=== PATIENT | female | born 1945 | race Caucasian/White ===

== ENCOUNTER 2017-04-21 10:36 | Inpatient (IN) ==
[2017-04-21 11:45] LABS: Basophils % 0.3 %; Eosinophils # 0.3 K/mcL (0.0-0.6); Eosinophils % 3.2 %; Hematocrit 36.9 % (35.3-44.9); Hemoglobin 11.8 g/dL (11.5-15.4); Immature Granulocytes % 0.2 % (0-4); Lymphocytes # 0.7 K/mcL (0.6-4.6); Lymphocytes % 7.8 %; Mean Corpuscular Hemoglobin 32.7 pg (28.0-33.3); Mean Corpuscular Volume 102.2 fL (83.0-100.0); Mean Platelet Volume 8.7 fL (9.4-12.4); Monocytes # 0.4 K/mcL (0.0-1.3); Monocytes % 4.8 %; Neutrophils # 7.4 K/mcL (1.6-8.9); Platelet Count 116 K/mcL (140-400); Red Blood Count 3.61 M/mcL (3.82-4.97); Red Cell Distribution Width 13.3 % (11.5-14.5); Segmented Neutrophils % 83.7 %
[2017-04-21] MEDS ORDERED: Ipratropium/Albuterol Neb 3 ML IH ONE (11:53)
[2017-04-21] MEDS ORDERED: methylPREDNISolone 125 MG/2 ML VIAL IVP ONE (11:55)
[2017-04-21 12:02] LABS: Calcium 9.7 mg/dL (8.6-10.8); Potassium 4.1 mEq/L (3.5-4.5)
[2017-04-21] MEDS ORDERED: Azithromycin 500 MG in D5% in Water 250 ML IVPB ONE (13:24)
--- NOTE | 2017-04-21 13:33 | Emergency Department Note ---
Disposition Clinical Impression: COPD exacerbation Pneumonia Qualifiers: Pneumonia type: due to unspecified organism Laterality: unspecified laterality Lung location: unspecified part of lung Qualified Code(s): J18.9 - Pneumonia, unspecified organism CHF (congestive heart failure) Qualifiers: Congestive heart failure type: systolic Congestive heart failure chronicity: acute Qualified Code(s): I50.21 - Acute systolic (congestive) heart failure Disposition: Admitted As Inpatient Condition: Good SOB HPI - General Chief Complaint: ED Shortness of Breath/Dyspnea Stated Complaint: SOB/weakness Time Seen by Provider: 04/21/17 11:03 Source: patient, family Limitations: no limitations Nursing Notes Reviewed: Yes Vital Signs Reviewed: Yes - History of Present Illness Patient here for evaluation of shortness of breath and fatigue. Patient's shortness of breath started yesterday. Not associated with fever. Patient has had a productive cough that has been white and yellow sputum. Patient has a history of COPD as well as CHF. No recent hospitalizations or hospital stays. Uses at home breathing treatments on a razor basis. Patient uses home oxygen at 2.5 L. Recent increase in overall use requiring approximately 4 L in the emergency department. No acute distress while resting in bed at 4 L. - Related Data Home Medications Medication Instructions Recorded Confirmed Atorvastatin Calcium [Lipitor] 20 mg PO HS 09/16/16 04/21/17 Febuxostat [Uloric] 80 mg PO DAILY 09/16/16 04/21/17 Furosemide [Lasix] 40 mg PO DAILY 09/16/16 04/21/17 Gabapentin [Neurontin] 300 mg PO TID 09/16/16 04/21/17 Multivitamin [One Daily Essential] 1 tab PO DAILY 09/16/16 04/21/17 Tramadol HCl [Ultram] 50 mg PO QID PRN 09/16/16 04/21/17 Valsartan [Diovan] 80 mg PO DAILY 09/16/16 04/21/17 amLODIPine [Norvasc] 10 mg PO DAILY 09/16/16 04/21/17 Aspirin [Lo-Dose Aspirin EC] 81 mg PO DAILY 01/22/17 04/21/17 Carvedilol 3.125 mg PO BID 01/22/17 04/21/17 Albuterol Sulfate [Ventolin Hfa] 2 puff IH Q4H PRN 04/21/17 04/21/17 Escitalopram [Lexapro] 10 mg PO DAILY 04/21/17 04/21/17 Allergies Allergy/AdvReac Type Severity Reaction Status Date / Time No Known Allergies Allergy Verified 01/22/17 07:52 Review of Systems: CONSTITUTIONAL: weakness and fatigue No weight loss, fever, chills. HEENT: Eyes: No visual changes. Ears, Nose, Throat: No hearing loss, difficulty talking or unable to swallow. SKIN: No rash or itching. CARDIOVASCULAR: No chest pain, chest pressure or chest discomfort. No palpitations or edema. RESPIRATORY: shortness of brerath and sputum production GASTROINTESTINAL: No anorexia, nausea, vomiting or diarrhea. No abdominal pain or blood. GENITOURINARY: No burning on urination or hematuria. NEUROLOGICAL: No headache, dizziness, syncope, paralysis, ataxia, numbness or tingling in the extremities. No change in bowel or bladder control. MUSCULOSKELETAL: No muscle pain, back pain, joint pain or stiffness. Past Medical History - Past Medical History Medical history: Reports: CHF, COPD, hypertension, RA, renal disease Surgical history: Reports: cholecystectomy, knee replacement, other Psychiatric history: Reports: no psych history - Social History Smoking Status: Never smoker Smokeless Tobacco Status: No Alcohol use: Reports: none Drug use: Reports: none Physical Exam General appearance: NAD, conversant Eyes: anicteric sclerae, moist conjunctivae; PERRL HENT: Atraumatic; oropharynx clear with moist mucous membranes and no mucosal ulcerations Neck: Normal inspection; Trachea midline; FROM, supple Lungs: Diffuse wheezing with rhonchi CV: RRR, no MRGs Abdomen: Soft, non-tender; no rebound or gaurding Extremities: No peripheral edema or extremity lymphadenopathy Skin: Normal temperature; no rash, ulcers or lesions Psych: Appropriate mood and affect Neuro: alert and oriented to person, place and time - General Limitations: no limitations General appearance: alert Course - Reevaluation(s) Reevaluation #1: Symptoms mildly improved with DuoNeb's and steroids. However she does appear to have a retrocardiac pneumonia. Patient's oxygen down turned out to her home to half liters and her oxygen dropped to 87% while rest. Patient will be brought in for COPD exacerbation, pneumonia, CHF. - Consultations Consultation #1: Discussed with Hospitalist Dr. Vick. Pt accepted. Vital Signs Temperature 98.1 F 04/21/17 10:36 Pulse Rate 86 04/21/17 10:36 Respiratory Rate 20 04/21/17 10:36 Blood Pressure 145/57 04/21/17 10:36 O2 Sat by Pulse Oximetry 85 04/21/17 10:36 Temperature 98.1 F 04/21/17 10:36 Pulse Rate 78 04/21/17 12:56 Respiratory Rate 18 04/21/17 15:19 Blood Pressure 174/70 04/21/17 15:19 O2 Sat by Pulse Oximetry 96 04/21/17 12:56 Oxygen Delivery Oxygen Delivery Room Air,Nasal Cannula Shortness of Breath/Dyspnea - Medical Records Medical records reviewed: Yes I reviewed the patient's medical records. - Lab Data Lab results reviewed: Yes I reviewed the patient's lab results. Result diagrams: 04/21/17 11:33 04/21/17 11:33 Lab Results 04/21/17 04/21/17 04/21/17 Range/Units 11:33 11:33 11:33 WBC 8.8 (4.3-11.1) K/mcL RBC 3.61 L (3.82-4.97) M/mcL Hgb 11.8 (11.5-15.4) g/dL Hct 36.9 (35.3-44.9) % MCV 102.2 H (83.0-100.0) fL MCH 32.7 (28.0-33.3) pg MCHC 32.0 (31.6-35.5) g/dL RDW 13.3 (11.5-14.5) % Plt Count 116 L (140-400) K/mcL MPV 8.7 L (9.4-12.4) fL Immature Gran % 0.2 (0-4) % Seg Neutrophils % 83.7 % Lymphocytes % 7.8 % Monocytes % 4.8 % Eosinophils % 3.2 % Basophils % 0.3 % Neutrophils # 7.4 (1.6-8.9) K/mcL Lymphocytes # 0.7 (0.6-4.6) K/mcL Monocytes # 0.4 (0.0-1.3) K/mcL Eosinophils # 0.3 (0.0-0.6) K/mcL Basophils # 0.0 (0.0-0.2) K/mcL Sodium 143 (136-145) mEq/L Potassium 4.1 (3.5-4.5) mEq/L Chloride 97 L (98-109) mEq/L Carbon Dioxide 37 H (19-29) mEq/L BUN 26 H (7-20) mg/dL Creatinine 1.50 H (0.57-1.11) mg/dL Est GFR ( Amer) 42 L (> 60) Est GFR (Non-Af Amer) 34 L (> 60) BUN/Creatinine Ratio 17 (6-26) Glucose 113 H (70-99) mg/dL Calculated Osmolality 302 H (280-300) Calcium 9.7 (8.6-10.8) mg/dL Troponin I 0.01 (0-0.03) ng/mL B-Natriuretic Peptide (0-100) pg/mL 04/21/17 Range/Units 11:33 WBC (4.3-11.1) K/mcL RBC (3.82-4.97) M/mcL Hgb (11.5-15.4) g/dL Hct (35.3-44.9) % MCV (83.0-100.0) fL MCH (28.0-33.3) pg MCHC (31.6-35.5) g/dL RDW (11.5-14.5) % Plt Count (140-400) K/mcL MPV (9.4-12.4) fL Immature Gran % (0-4) % Seg Neutrophils % % Lymphocytes % % Monocytes % % Eosinophils % % Basophils % % Neutrophils # (1.6-8.9) K/mcL Lymphocytes # (0.6-4.6) K/mcL Monocytes # (0.0-1.3) K/mcL Eosinophils # (0.0-0.6) K/mcL Basophils # (0.0-0.2) K/mcL Sodium (136-145) mEq/L Potassium (3.5-4.5) mEq/L Chloride (98-109) mEq/L Carbon Dioxide (19-29) mEq/L BUN (7-20) mg/dL Creatinine (0.57-1.11) mg/dL Est GFR ( Amer) (> 60) Est GFR (Non-Af Amer) (> 60) BUN/Creatinine Ratio (6-26) Glucose (70-99) mg/dL Calculated Osmolality (280-300) Calcium (8.6-10.8) mg/dL Troponin I (0-0.03) ng/mL B-Natriuretic Peptide 53 (0-100) pg/mL - Radiology Data Radiology results reviewed: Yes I reviewed the patient's radiology results. - EKG Data EKG attestation: Yes I reviewed and interpreted this EKG. EKG results narrative: ST segment flattening and inversions in 3 and 4. Otherwise normal to 08/2616 EKG shows normal: Reports: sinus rhythm, axis, intervals Critical Care Time Critical Care Time: Yes Total Critical Care Time: 35 Attestation: The high probability of a clinically significant, sudden or life threatening deterioration of the [resp/CV] system(s) required my full and direct attention, intervention and personal management. The aggregate critical care time was [35] minutes. This time is in addition to time spent performing reported procedures but includes the following: [X] Data Review and interpretation [X] Patient assessment and monitoring of vital signs [X] Documentation [X] Medication orders and management Attestation Statement - Attestation Attestation: I personally interviewed and examined this patient and my medical decision- making was reviewed with the Resident Physician, Dr. Olivo I agree with the documented findings, disposition and treatment plan as described except to the extent set forth below. Patient is a 71-year-old white female with a history of COPD, CHF, who presents to the emergency department today with respiratory distress and hypoxia complaining of gradually worsening shortness of breath. Patient was hypoxic on room air on arrival, normally on 2 L nasal cannula oxygen at home and was increased to 4 L with mild improvement of symptoms as well as pulse oxing 94%. Patient was having wheezing on auscultation with tachypnea and also rhonchorous breath sounds throughout. Patient denies any actual chest pain, was complaining of some mild midthoracic back pain but otherwise no other associated symptoms, no diaphoresis, no fevers or chills, no nausea vomiting and an occasional nonproductive cough. I agree with patient's physical exam findings as documented. Patient received increased abdominal oxygen, was placed on a ekg monitor and continuous pulse ox and received aerosols on arrival. Patient's EKG showed no acute findings and no ischemic change. Patient with improved symptoms following aerosols. Chest x-ray showed mild pulmonary edema consistent with CHF exacerbation. Two-view chest also showed an infiltrate in the retrocardiac space consistent with pneumonia. Patient was started on IV antibiotics, continued breathing treatments and was hemodynamically stable throughout her ED course. Patient will be admitted for respiratory distress caused by acute exacerbation COPD, pneumonia, and mild CHF exacerbation. Case was discussed with the hospitalist who accepted the patient for admission for further evaluation and management.
[2017-04-21] MEDS ORDERED: Furosemide 20 MG/2 ML VIAL IVP ONE (14:28)
[2017-04-21] MEDS ORDERED: Acetaminophen 325 MG TABLET PO PRN (17:19)
[2017-04-21] MEDS ORDERED: Naloxone 0.4 MG/ML INJ IVP PRN (17:19)
--- NOTE | 2017-04-21 17:19 | Internal Med History&Physical ---
Date of Encounter: 04/21/17 Time of Encounter: 17:19 Assessment and Plan (1) COPD exacerbation Current visit: Yes Status: Acute Possible infective exacerbation of COPD: -Known to have a COPD, home oxygen 2 L/m. -Worsening shortness of breath along with increasing oxygen demand: Maintenance of around 90-92% on 4 L. -Change in color of sputum. -X-ray just suggestive of possibility of a pneumonia. Plan: -IV levofloxacin 500 mg every 48 hours (creatinine 1.5) -IV Solu-Medrol 40 mg every 8 hours - IH DuoNeb every 4 hours (2) CHF exacerbation Current visit: No Status: Acute Worsening shortness of breath. Echocardiogram: 08/2016: EF: 65-70%, moderate aortic stenosis Presently on ASA/BB/amlodipine/ARB Plan: Will continue present treatment. We will increase Lasix from 40 mg by mouth to intravenous 40 mg twice a day. We will get labs tomorrow morning. I have consulted nephrology to keep eye on her creatinine as this patient will need aggressive dialysis. Patient has bicarbonate of 37 and she is already heading towards contraction alkalosis Qualifiers: Congestive heart failure type: diastolic Qualified Code(s): I50.33 - Acute on chronic diastolic (congestive) heart failure (3) Hypertension Current visit: No Status: Chronic Mildly elevated blood pressure likely secondary to stress/pain. Patient cannot have her tramadol in view of altered renal function. Patient is on Solu-Medrol and that will take care of her pain from rheumatoid arthritis Explained him over to the patient and she verbalized understanding Nephrology consulted Qualifiers: Hypertension type: essential hypertension Qualified Code(s): I10 - Essential (primary) hypertension (4) MIGDALIA (obstructive sleep apnea) Current visit: No Status: Chronic Need outpatient evaluation of a sleep study (5) DVT prophylaxis Current visit: No Status: Acute Heparin Medical decision-making: This patient has a moderate to severe risk of worsening in spite of being on appropriate treatment due to underlying multiple complex medical issues Internal Medicine - H&P: HPI Chief complaint: Worsening SOB Admitted From: Emergency Dept Plans for Post Hospital Care: Home History of present illness: PCP : Dr Nguyễn Cardiology : Dr London Nephrology : Dr Cadena Pulmonology : From [facility] Rheumatology : [facility]. Brief PMH : HTN, RA, CKD III, COPD On 2 L INO2, Diastolic Heart failure (HFpEF) , HPI: Patient is complaining of worsening shortness of breath for past 3 days but gradually and consistently worsening in last 24 hours. Patient claims that on a minimal activity she gets exerted and even to walk a few steps it is extremely difficult for her. Patient usually uses 2 L of oxygen at home and her demand for oxygen has gone up to 4.5 L and in spite of that she feels short of breath. Patient also claims that her sputum is yellowish white in color and this is a new change which she noted in last 24 hours. Patient denies chest pain, abdominal pain, nausea, vomiting, diarrhea and dizziness. Course in the emergency department: Patient was evaluated in the emergency department as she was brought in for worsening shortness of breath. Basic labs were drawn. X-ray chest was done and that is suggestive of possibility of a pneumonia. Antibiotics were given. We do not see any blood cultures ordered or drawn. Reason for admission: Possible COPD exacerbation, however CHF exacerbation is also possible as this could be a exacerbation of her diastolic heart failure. Patient needs intravenous antibiotics, diuretics and intensive monitoring of her respiratory/cardiac status and this is that his reason patient needs to be in the hospital for next 2-3 days. Family history: Noncontributory Past Med Surg Social Fam HX - Past Medical History Medical history: CHF, COPD, hypertension, RA, renal disease Psychiatric history: no psych history - Past Surgical History Surgical History: cholecystectomy, knee replacement, other - Social History Smoking Status: Never smoker Smokeless Tobacco Status: No Alcohol use: none Drug use: none Internal Medicine - H&P: Meds Atorvastatin Calcium [Lipitor] 20 mg PO HS 09/16/16 [History] Febuxostat [Uloric] 80 mg PO DAILY 09/16/16 [History] Furosemide [Lasix] 40 mg PO DAILY 09/16/16 [History] Gabapentin [Neurontin] 300 mg PO TID 09/16/16 [History] Multivitamin [One Daily Essential] 1 tab PO DAILY 09/16/16 [History] Tramadol HCl [Ultram] 50 mg PO QID PRN 09/16/16 [History] Valsartan [Diovan] 80 mg PO DAILY 09/16/16 [History] amLODIPine [Norvasc] 10 mg PO DAILY 09/16/16 [History] Aspirin [Lo-Dose Aspirin EC] 81 mg PO DAILY 05/03/17 [History] Carvedilol 3.125 mg PO BID 01/22/17 [History] Albuterol Sulfate [Ventolin Hfa] 2 puff IH Q4H PRN 04/21/17 [History] Escitalopram [Lexapro] 10 mg PO DAILY 04/21/17 [History] Allergies No Known Allergies Allergy (Verified 01/22/17 07:52) All Systems PM: A 10-system review of systems was performed and is negative for pertinent findings except as documented above in the HPI. - Constitutional Constitutional: no chills, no fever(s), no night sweats - EENT Eyes: no change in vision, no discharge, no pain, no photophobia Ears: no ear discharge, no ear pain, no tinnitus Nose, mouth and throat: no dysphagia, no nasal discharge, no neck pain, no sore throat - Cardiovascular Cardiovascular ROS IM: dyspnea, lightheadedness, no chest pain, no diaphoresis, no palpitations, no syncope - Respiratory Respiratory: cough, dyspnea, excessive phlegm production, change in phlegm color , no wheezing - Gastrointestinal Gastrointestinal: no abdominal pain, no diarrhea, no hematemesis, no hematochezia, no melena, no nausea, no vomiting - Genitourinary Genitourinary: no change in urinary stream, no dysuria, no flank pain, no hematuria - Musculoskeletal Musculoskeletal ROS IM: no numbness, no tingling - Integumentary Integumentary IM: no rash, no unusual bruising - Neurological Neurological ROS: no confusion, no convulsions, no focal weakness, no numbness, no tingling, no tremor(s) - Hematologic/Lymphatic Hematologic/Lymphatic: no easy bruising - Constitutional Vitals: Temp Pulse Resp BP Pulse Ox 98.4 F 87 18 166/70 90 04/21/17 16:15 04/21/17 16:15 04/21/17 16:15 04/21/17 16:15 04/21/17 16:15 General appearance: Present: A&O X 3, morbidly obese, pleasant, answers questions appropriately - Head Head exam: Present: atraumatic, normocephalic - Eye Eye exam: Present: PERRL, conjuntiva pink, sclera anicteric Pupils: Present: PERRL - Neck Neck exam general surgery: Present: supple, trachea midline. Absent: lymphadenopathy - Respiratory Respiratory exam: Present: CTAB, rales, rhonchi, wheezes. Absent: accessory muscle use - Cardiovascular Cardiovascular exam: Present: RRR, +S1, +S2. Absent: diastolic murmur, gallop, rubs, systolic murmur - GI/Abdominal GI/Abdominal exam: Present: normal bowel sounds, soft, no peritoneal signs. Absent: distended, tenderness - Extremities Exam Extremities exam: Present: warm, radial pulses palpable and symetrical. Absent : calf tenderness, cyanotic, pedal edema - Neurological Exam Neurological exam: Present: CN II-XII intact, oriented X3, no focal deficits. Absent: pronater drift, facial droop, speech deficit - Skin Skin exam: Present: dry, intact Internal Med - H&P Results - Labs CBC & Chem 7: 04/21/17 11:33 04/21/17 11:33
[2017-04-21] MEDS ORDERED: Ipratropium/Albuterol Neb 3 ML IH PRN (17:31)
--- NOTE | 2017-04-21 17:59 | Electrocardiograph Report ---
[address] [address] Test Date: 2017-04-21 Pat Name: Melly Stinson Department: 104 Room: 2A63 Gender: F Heliarc Welder: CLEMENTINA : 1945 Requested By: Cristobal Olivo Order Number: [id number] Reading MD: Blanca Griffin Measurements Intervals [place] Rate: 77 P: 55 TN: 148 QRS: 29 QRSD: 97 T: 30 QT: 392 QTc: 424 Interpretive Statements SINUS RHYTHM Electronically Signed On 04-21-2017 17:57:51 EDT by Blanca Griffin
[2017-04-21] MEDS ORDERED: Levofloxacin 500 MG/100 ML 500 MG/100 ML BAG IVPB SCH (18:00)
[2017-04-21] MEDS: Furosemide 40 MG/4 ML VIAL IVP SCH (18:07)
[2017-04-21] MEDS: *HR* Heparin 5,000 UNIT/ML VIAL SQ SCH (18:10)
[2017-04-21] MEDS: Gabapentin 300 MG CAPSULE PO SCH (20:10)
[2017-04-21] MEDS: MethylPREDNISolone 40 MG/ML VIAL IVP SCH ×2 (23:15→23:55)
[2017-04-22 01:27] LABS: Albumin 3.7 g/dL (3.5-5.0); Albumin/Globulin Ratio 1.3 (1.1-2.2); Bilirubin,Total 0.7 mg/dL (0.2-1.2); Calcium 9.6 mg/dL (8.6-10.8); Chol/HDL Ratio 2.6 (0-4.9); Globulin 2.9 g/dL (2.4-3.5); Magnesium 1.8 mg/dL (1.6-2.6); Phosphorous 1.8 mg/dL (2.3-4.7); Potassium 4.5 mEq/L (3.5-4.5); Total Protein 6.6 g/dL (6.0-8.3)
[2017-04-22] MEDS: *HR* Heparin 5,000 UNIT/ML VIAL SQ SCH ×2 (05:44→18:34)
[2017-04-22 07:56] LABS: Basophils % 0.1 %; Hematocrit 38.9 % (35.3-44.9); Hemoglobin 12.6 g/dL (11.5-15.4); Immature Granulocytes % 0.3 % (0-4); Immature Platelets 1.6 % (1.1-6.1); Lymphocytes # 0.6 K/mcL (0.6-4.6); Lymphocytes % 4.3 %; Mean Corpuscular HGB Conc 32.4 g/dL (31.6-35.5); Mean Corpuscular Hemoglobin 32.8 pg (28.0-33.3); Mean Corpuscular Volume 101.3 fL (83.0-100.0); Mean Platelet Volume 9.3 fL (9.4-12.4); Monocytes # 0.1 K/mcL (0.0-1.3); Monocytes % 0.8 %; Neutrophils # 12.4 K/mcL (1.6-8.9); Platelet Count 157 K/mcL (140-400); Red Blood Count 3.84 M/mcL (3.82-4.97); Red Cell Distribution Width 13.4 % (11.5-14.5); Segmented Neutrophils % 94.5 %
--- NOTE | 2017-04-22 08:10 | Nephrology Consult Note ---
Date of Encounter: 04/22/17 Time of Encounter: 08:08 Assessment and Plan (1) Chronic kidney disease, stage III (moderate) Current Visit: Yes Status: Acute Patient has stage III chronic kidney disease in the setting of hypertension. She does not report a history of diabetes. Currently her renal function is stable. She is being treated for exacerbation of COPD and also for acute on chronic diastolic congestive heart failure. Patient is currently receiving Lasix 40 mg IV twice a day. We will continue to monitor her renal function. If her renal function worsens or Lasix will have to be reduced. Patient does report a history of chronic lower extremity swelling. Part of this could be related to the fact that she takes both amlodipine and gabapentin which can cause chronic lower extremity swelling. Clinically the patient's main issue appears to be exacerbation of COPD. (2) Benign hypertension with chronic kidney disease, stage III Current Visit: Yes Status: Acute (3) MIGDALIA (obstructive sleep apnea) Current Visit: No Status: Chronic (4) COPD exacerbation Current Visit: Yes Status: Acute (5) Diastolic CHF, acute on chronic Current Visit: Yes Status: Acute History of Present Illness - History of Present Illness This is a 71-year-old female with a history of stage III chronic kidney disease in the setting of hypertension. Baseline serum creatinine ranges from 1.5-2.6. Patient was admitted to the hospital for 1 week history of worsening shortness of breath along with cough and sputum production. She has a history of COPD, sleep apnea, and congestive heart failure. Previous echocardiogram showing a normal left ventricular ejection fraction. It is also showed mild to moderate pulmonary hypertension and mild to moderate aortic stenosis. Patient has been treated for exacerbation of COPD and also has had her diuretic dose increased. Today she reports that she is feeling better. She reports less shortness of breath. She is no longer wheezing. She does have chronic lower extremity swelling. She says her swelling today is improved compared to yesterday. Her serum creatinine has gone from 1.50 yesterday to 1.69 today. Past Med Surg Social Fam HX - Past Medical History Medical history: CHF, COPD, hypertension, RA, renal disease Psychiatric history: anxiety - Past Surgical History Surgical History: cholecystectomy, knee replacement, other - Social History Smoking Status: Never smoker Smokeless Tobacco Status: No Alcohol use: none Drug use: none - Family History Son Hx Family Autoimmune Disorders: Yes (rheumatoid arthritis) Medications and Allergies Atorvastatin Calcium [Lipitor] 20 mg PO HS 09/16/16 [History] Febuxostat [Uloric] 80 mg PO DAILY 09/16/16 [History] Furosemide [Lasix] 40 mg PO DAILY 09/16/16 [History] Gabapentin [Neurontin] 300 mg PO TID 09/16/16 [History] Multivitamin [One Daily Essential] 1 tab PO DAILY 09/16/16 [History] Tramadol HCl [Ultram] 50 mg PO QID PRN 09/16/16 [History] Valsartan [Diovan] 80 mg PO DAILY 09/16/16 [History] amLODIPine [Norvasc] 10 mg PO DAILY 09/16/16 [History] Aspirin [Lo-Dose Aspirin EC] 81 mg PO DAILY 01/22/17 [History] Carvedilol 3.125 mg PO BID 01/22/17 [History] Albuterol Sulfate [Ventolin Hfa] 2 puff IH Q4H PRN 04/21/17 [History] Escitalopram [Lexapro] 10 mg PO DAILY 04/21/17 [History] Allergies No Known Allergies Allergy (Verified 01/22/17 07:52) Review of Systems Constitutional: as per HPI, weakness Eyes: bilateral: blurred vision (patient denies), diplopia (patient denies) Nose, mouth and throat: no dizziness, no headache(s) Cardiovascular: dyspnea, dyspnea on exertion, edema, no chest pain, no palpitations Respiratory: as per HPI, cough, dyspnea, dyspnea on exertion Gastrointestinal: no abdominal pain, no change in bowel habits Musculoskeletal: no muscle weakness, no numbness Integumentary: no hirsutism, no striae Neurological: as per HPI Psychiatric: no depression, no difficulty concentrating Endocrine: as per HPI Exam - Vital Signs Vital signs: Initial Vital Signs Temp Pulse Resp BP Pulse Ox 98.1 F 86 20 145/57 85 04/21/17 10:36 04/21/17 10:36 04/21/17 10:36 04/21/17 10:36 04/21/17 10:36 Vital Signs - Last 8 Hours Temp Pulse Resp BP Pulse Ox 04/22/17 06:47 97.4 F L 90 16 151/72 94 04/22/17 03:37 98.0 F 86 16 171/80 92 Intake and Output 04/21/17 04/22/17 04/22/17 23:59 07:59 15:59 Intake Total 250 / 250 Output Total 300 / 300 1200 / 1200 Balance -50 / -50 -1200 / -1200 Intake: IV Fluids 250 / 250 Zithromax 500 mg In 250 / 250 Dextrose 5% 250 ML @ 252 mls/hr IVPB ONCE ONE Rx#: [id number] Oral 0 / 0 Output: Urine 300 / 300 1200 / 1200 Other: Weight 164.3 kg Blood Glucose* 245 188 Patient Weight 04/22/17 23:59 Weight 164.3 kg - General Appearance Exam: Patient is alert and oriented. She is in no acute distress. Vital signs are stable. Neck is supple. Lungs diminished breath sounds with coarse rales in the bases. There is no wheezing nor rhonchi. Heart regular rate and rhythm with a 2/6 systolic ejection murmur. Abdomen is obese. Bowel sounds are present. No tenderness or organomegaly guarding or rigidity noted. There is some nonpitting lower extremity edema. There are no abnormal skin rashes. Results - Lab Results 04/22/17 06:57 04/22/17 00:34 Most recent lab results Calcium 9.6 mg/dL (8.6-10.8) 04/22/17 00:34 Phosphorus 1.8 mg/dL (2.3-4.7) L 04/22/17 00:34 Magnesium 1.8 mg/dL (1.6-2.6) 04/22/17 00:34 Consult Discharge Plan - Plan Referrals: Grady Nguyễn Jr, MD [Primary Care Provider] -
--- NOTE | 2017-04-22 08:58 | Internal Med Progress Note ---
<Williams Farias - Last Filed: 04/22/17 19:20> Date of Encounter: 04/22/17 Time of Encounter: 08:58 - Assessment and plan (1) COPD exacerbation Current Visit: Yes Status: Acute Assessment and plan: -patient's breathing markedly improved today. -possible infective exacerbation of COPD -Known to have a COPD, home oxygen 2 L/m. -Worsening shortness of breath along with increasing oxygen demand: Maintenance of around 90-92% on 4 L. -Change in color of sputum. -X-ray just suggestive of possibility of a pneumonia. -continue IV levofloxacin 500 mg every 48 hours (creatinine 1.69) -stopped IV Solu-Medrol 40 mg every 8 hours because patient's breathing and lungs sound improved -continue IH DuoNeb every 4 hours (2) CHF exacerbation Current Visit: No Status: Acute Assessment and plan: -patient's SOB has improved -Presently on ASA/BB/amlodipine/ARB -continue present treatment. -continue Lasix 40 mg IV BID -nephrology consulted -Nephrology plans to just monitor. -Echocardiogram: 08/2016: EF: 65-70%, moderate aortic stenosis -Patient reports poor compliance with diet and sodium intake. Qualifiers: Congestive heart failure type: diastolic Qualified Code(s): I50.33 - Acute on chronic diastolic (congestive) heart failure (3) Hypertension Current Visit: No Status: Chronic Assessment and plan: -Mildly elevated blood pressure likely secondary to stress/pain. -continue patient's Norvasc, diovan -Hold pt's tramadol in view of altered renal function. -Patient is on Solu-Medrol and that will take care of her pain from rheumatoid arthritis Qualifiers: Hypertension type: essential hypertension Qualified Code(s): I10 - Essential (primary) hypertension (4) Chronic kidney disease, stage III (moderate) Current Visit: Yes Status: Chronic Assessment and plan: -Patient has stage III chronic kidney disease in the setting of hypertension. -Currently her renal function is stable. - nephro consulted and agrees with plan of Lasix 40 mg IV BID. -continue to monitor renal function. If her renal function worsens will reduce lasix. (5) MIGDALIA (obstructive sleep apnea) Current Visit: No Status: Chronic Assessment and plan: -Will be evaluated as an outpatient (6) DVT prophylaxis Current Visit: No Status: Acute Assessment and plan: Continue heparin - Subjective Interval history: Patient reports feeling much better today. She reports her breathing is greatly improved. Her swelling in her lower extremities is also improved. She denies chest pain, abdominal pain, vomiting, or diarrhea. - Constitutional Vitals: Temp Pulse Resp BP Pulse Ox 97.4 F L 90 16 151/72 94 04/22/17 06:47 04/22/17 06:47 04/22/17 06:47 04/22/17 06:47 04/22/17 06:47 General appearance: Present: A&O X 3, morbidly obese, pleasant, answers questions appropriately - Eye Eye exam: Present: PERRL - ENT ENT exam: Present: mucous membranes moist - Respiratory Respiratory exam: Present: CTAB - Cardiovascular Cardiovascular exam: Present: RRR, +S1, +S2 - GI/Abdominal GI/Abdominal exam: Present: normal bowel sounds, soft. Absent: tenderness - Extremities Exam Extremities exam: Present: pedal edema - Neurological Exam Neurological exam: Present: alert. Absent: facial droop, speech deficit - Skin Skin exam: Present: warm Internal Medicine: Result - Labs CBC & Chem 7: 04/22/17 06:57 04/22/17 00:34 Labs: Short CBC 04/22/17 Range/Units 06:57 WBC 13.1 H (4.3-11.1) K/mcL Hgb 12.6 (11.5-15.4) g/dL Hct 38.9 (35.3-44.9) % Plt Count 157 (140-400) K/mcL Neutrophils # 12.4 H (1.6-8.9) K/mcL BMP 04/22/17 00:34 Sodium 144 Potassium 4.5 Chloride 98 Carbon Dioxide 39 H BUN 33 H Creatinine 1.69 H Glucose 165 H Calcium 9.6 Cardiac Enzymes 04/21/17 04/22/17 04/22/17 Range/Units 17:47 00:34 05:38 Troponin I 0.01 0.00 0.01 (0-0.03) ng/mL Liver Function 04/22/17 Range/Units 00:34 Total Bilirubin 0.7 (0.2-1.2) mg/dL AST 19 (5-34) Units/L ALT 14 (0-55) Units/L Alkaline Phosphatase 74 (38-126) Units/L Albumin 3.7 (3.5-5.0) g/dL Consult Discharge Plan - Plan Referrals: Grady Nguyễn Jr, MD [Primary Care Provider] - <Wilton Lewis - Last Filed: 04/22/17 23:12> Date of Encounter: 04/22/17 - Constitutional Vitals: Temp Pulse Resp BP Pulse Ox 98.9 F 84 16 163/67 95 04/22/17 19:23 04/22/17 19:23 04/22/17 19:23 04/22/17 19:23 04/22/17 19:23 Internal Medicine: Result - Labs CBC & Chem 7: 04/22/17 06:57 04/22/17 00:34 Labs: Short CBC 04/22/17 Range/Units 06:57 WBC 13.1 H (4.3-11.1) K/mcL Hgb 12.6 (11.5-15.4) g/dL Hct 38.9 (35.3-44.9) % Plt Count 157 (140-400) K/mcL Neutrophils # 12.4 H (1.6-8.9) K/mcL BMP 04/22/17 00:34 Sodium 144 Potassium 4.5 Chloride 98 Carbon Dioxide 39 H BUN 33 H Creatinine 1.69 H Glucose 165 H Calcium 9.6 Cardiac Enzymes 04/22/17 04/22/17 Range/Units 00:34 05:38 Troponin I 0.00 0.01 (0-0.03) ng/mL Liver Function 04/22/17 Range/Units 00:34 Total Bilirubin 0.7 (0.2-1.2) mg/dL AST 19 (5-34) Units/L ALT 14 (0-55) Units/L Alkaline Phosphatase 74 (38-126) Units/L Albumin 3.7 (3.5-5.0) g/dL - Attending Attestation I also examined the Patient today.. she has had rapid improvement. Normal BNP supports COPD, the quick improvement supports pulm. edema. Her CXR is unchanged. Will hope to DC tomorrow.. hold the steroid, modify the diuretic, and decrease the Amlodopine which is cont. to the fluid retension.
[2017-04-22] MEDS ORDERED: Valsartan 80 MG TABLET PO SCH (09:00)
[2017-04-22] MEDS: amLODIPine 5 MG TABLET PO SCH (10:38)
[2017-04-22] MEDS: Gabapentin 300 MG CAPSULE PO SCH ×3 (10:38→20:01)
[2017-04-22] MEDS: Aspirin Enteric Coated 81 MG Tablet PO SCH (10:40)
[2017-04-22] MEDS: Multivit/Ca/Min/Fe/FA 1 TAB TABLET PO SCH (10:40)
[2017-04-22] MEDS: Furosemide 40 MG/4 ML VIAL IVP SCH ×2 (10:41→16:55)
[2017-04-22] MEDS: MethylPREDNISolone 40 MG/ML VIAL IVP SCH ×2 (10:41→16:55)
[2017-04-22] MEDS: (Febuxostat [Uloric] 80 MG) PO SCH (11:38)
[2017-04-23 05:23] LABS: Albumin 3.9 g/dL (3.5-5.0); Albumin/Globulin Ratio 1.1 (1.1-2.2); Bilirubin,Total 0.7 mg/dL (0.2-1.2); Globulin 3.4 g/dL (2.4-3.5); Potassium 4.8 mEq/L (3.5-4.5); Total Protein 7.3 g/dL (6.0-8.3)
[2017-04-23] MEDS: *HR* Heparin 5,000 UNIT/ML VIAL SQ SCH (06:11)
--- NOTE | 2017-04-23 08:19 | Nephrology Progress Note ---
Date of Encounter: 04/23/17 Time of Encounter: 08:18 - Assessment and Plan (1) Chronic kidney disease, stage III (moderate) Current Visit: Yes Status: Chronic Patient's renal function is stable. Blood pressure is suboptimal. Her COPD exacerbation has improved. We can switch her back to oral Lasix. I am going to increase the valsartan for better blood pressure control. (2) Benign hypertension with chronic kidney disease, stage III Current Visit: Yes Status: Acute (3) MIGDALIA (obstructive sleep apnea) Current Visit: No Status: Chronic (4) COPD exacerbation Current Visit: Yes Status: Acute (5) Diastolic CHF, acute on chronic Current Visit: Yes Status: Acute Subjective Interval history: The patient reports her breathing is back to baseline. She feels better compared to when she was first admitted. Blood pressure is 153/73. Urine output yesterday was over 3 L. Renal function is stable. Objective - Vital Signs Vital signs: Vital Signs Temp Pulse Resp BP Pulse Ox 04/23/17 07:51 98.5 F 81 16 159/78 92 04/23/17 04:00 97.8 F 82 18 153/73 95 04/22/17 23:00 98.1 F 82 18 155/73 96 04/22/17 19:23 98.9 F 84 16 163/67 95 04/22/17 16:59 98.8 F 87 20 148/75 95 04/22/17 11:50 98.5 F 84 20 138/68 92 Intake and Output 04/22/17 04/23/17 04/23/17 23:59 07:59 15:59 Intake Total 120 / 120 Output Total 1200 / 1200 650 / 650 Balance -1080 / -1080 -650 / -650 Intake: Oral 120 / 120 Output: Urine 1200 / 1200 650 / 650 Other: Meal Dinner Percent of Meal Consumed 100% Blood Glucose* 197 137 - General Appearance Exam: Patient is alert and oriented. She is in no acute distress. Lungs diminished breath sounds. Some faint rales in the bases. Heart regular rate and rhythm. Abdomen is benign. There is mild nonpitting edema in the lower extremities. - Lab 04/22/17 06:57 04/23/17 04:46 Most recent lab results Calcium 10.0 mg/dL (8.6-10.8) 04/23/17 04:46 Phosphorus 1.8 mg/dL (2.3-4.7) L 04/22/17 00:34 Magnesium 1.8 mg/dL (1.6-2.6) 04/22/17 00:34 Consult Discharge Plan - Plan Referrals: Grady Nguyễn Jr, MD [Primary Care Provider] -
[2017-04-23] MEDS ORDERED: Furosemide 40 MG TABLET PO SCH (09:00)
[2017-04-23] MEDS ORDERED: Valsartan 80 MG TABLET PO SCH (09:00)
[2017-04-23] MEDS: amLODIPine 5 MG TABLET PO SCH (10:15)
[2017-04-23] MEDS: Multivit/Ca/Min/Fe/FA 1 TAB TABLET PO SCH (10:15)
[2017-04-23] MEDS: Aspirin Enteric Coated 81 MG Tablet PO SCH (10:15)
[2017-04-23] MEDS: Gabapentin 300 MG CAPSULE PO SCH ×2 (10:15→15:23)
--- NOTE | 2017-04-23 10:15 | Discharge Summary ---
<Williams Farias - Last Filed: 04/23/17 16:23> Date of Encounter: 04/23/17 Time of Encounter: 10:12 - Discharge Diagnosis (1) COPD exacerbation Priority: Primary Status: Acute (2) CHF exacerbation Priority: Secondary Status: Acute Qualifiers: Congestive heart failure type: diastolic Qualified Code(s): I50.33 - Acute on chronic diastolic (congestive) heart failure (3) Hypertension Priority: Secondary Status: Chronic Qualifiers: Hypertension type: essential hypertension Qualified Code(s): I10 - Essential (primary) hypertension (4) Chronic kidney disease, stage III (moderate) Priority: Secondary Status: Chronic (5) MIGDALIA (obstructive sleep apnea) Priority: Secondary Status: Chronic - Discharge Medications Prescriptions: amLODIPine [Norvasc] 5 mg PO DAILY #30 tab Furosemide [Lasix] 40 mg PO BID #60 tablet Levofloxacin [Levaquin] 500 mg PO Q48H #2 tablet Home Medications: Atorvastatin Calcium [Lipitor] 20 mg PO HS 09/16/16 [History] Febuxostat [Uloric] 80 mg PO DAILY 09/16/16 [History] Gabapentin [Neurontin] 300 mg PO TID 09/16/16 [History] Multivitamin [One Daily Essential] 1 tab PO DAILY 09/16/16 [History] Tramadol HCl [Ultram] 50 mg PO QID PRN 09/16/16 [History] Aspirin [Lo-Dose Aspirin EC] 81 mg PO DAILY 01/22/17 [History] Carvedilol 3.125 mg PO BID 01/22/17 [History] Albuterol Sulfate [Ventolin Hfa] 2 puff IH Q4H PRN 04/21/17 [History] Escitalopram [Lexapro] 10 mg PO DAILY 04/21/17 [History] Furosemide [Lasix] 40 mg PO BID #60 tablet 04/23/17 [Rx] Levofloxacin [Levaquin] 500 mg PO Q48H #2 tablet 04/23/17 [Rx] Omeprazole [PriLOSEC] 20 mg PO DAILY@0630 04/23/17 [Rx] Valsartan [Diovan] 80 mg PO BID tab 04/23/17 [Rx] amLODIPine [Norvasc] 5 mg PO DAILY #30 tab 04/23/17 [Rx] Allergies/Adverse Reactions: Allergies No Known Allergies Allergy (Verified 01/22/17 07:52) Procedures/tests Complete & Pending: CXR: IMPRESSION: 1. Cardiomegaly with vascular congestion and mild interstitial edema. 2. More focal, retrocardiac airspace disease noted on the lateral film, not optimally localized on the frontal film. This could represent a superimposed pneumonia. Radiographic follow-up is recommended to assure resolution. 3. Small left pleural effusion. Date of admission: 04/21/17 17:33 Primary care physician: Grady Nguyễn Jr, MD Consults: 04/21/17 17:38 Consult to Nephrology [CONS] Routine Consulting Provider: [facility] Reason for Consult: CKD III admitted with CHF/COPD exacerbation. Need IV lasix. Need to monitor creat Call Completed: Yes Discharging clinician: Williams Farias Anticipated date of discharge: 04/23/17 - Patient Status Disposition: Home, Self-Care Condition: Good Functional capacity at discharge: independent ambulation Overall status at discharge: patient is progressing back to baseline - Discharge Instructions Instructions: Heart Failure (DC), Chronic Obstructive Pulmonary Disease (DC), Pneumonia (DC) Follow Up With: Grady Nguyễn Jr, MD [Primary Care Provider] - 05/01/17 11:00 am (Please follow up as schedule...) Additional Instructions: Please follow up with your Primary Care Doctor within one week. Please follow up with any specialist physicians you see as soon as possible. Please watch you diet and avoid consuming excess salt. Please take you antibiotic (Levoquin) as directed. Please take your new regimen of Lasix of 40mg by mouth twice a day. Please take your new regimen of Diovan of 80mg by mouth twice a day. Please take your new regimen of amlodipine 5mg by mouth once a day. Please return to the hospital if you experience new or worsening symptoms - Diet and Activity Activity: resume usual activities as tolerated Diet: low salt diet Interval History: Patient reports felling better today. She reports her breathing is good and the swelling in her BLE is back to her baseline. She feels ready to go home. She denies Chest pain, abd pain, other complaints. Hospital course: Ms. Stinson is a 71 year old female who presented to the hospital on 04/21/17 c/ o Worsening shortness of breath x 3 days. She also endorsed increase in sputum production and change in color from white to yellow. She also reported increased swelling in her B/L Lower extremities. She was admitted to the hospital for COPD exacerbation as well as CHF exacerbation. Patient was started on IV Lasix, IV levofloxacin, Nebulizer treatments, and IV steroids. Nephrology was consulted for her Stage III Kidney disease especially in light of her being given extra lasix. Patient felt much better after diuresis and treatment of her COPD. Her steroids were discontinued on 04/22/17, but she continued to be diuresed. Patient reports feeling back to baseline on 04/23/17 and was discharged home in stable condition on oral abx, an increased dose of oral lasix from once a day to BID, a decrease of her amlodipine form 10mg to 5mg and an increased dose of her diovan form 80mg daily to BID for BP control. - Time Spent with Patient Total time spent providing and/or coordinating discharge services: - Constitutional Vitals: Temp Pulse Resp BP Pulse Ox 98.5 F 81 16 159/78 92 04/23/17 07:51 04/23/17 07:51 04/23/17 07:51 04/23/17 07:51 04/23/17 07:51 General appearance: Present: A&O X 3, morbidly obese, pleasant, answers questions appropriately - Eye Eye exam: Present: sclera anicteric - ENT ENT exam: Present: mucous membranes moist - Respiratory Respiratory exam: Present: CTAB - Cardiovascular Cardiovascular exam: Present: RRR, +S1, +S2 - GI/Abdominal GI/Abdominal exam: Present: normal bowel sounds, soft. Absent: tenderness - Extremities Exam Extremities exam: Present: pedal edema (improved from yesterday) - Neurological Exam Neurological exam: Present: alert, oriented X3. Absent: speech deficit - Psychiatric Psychiatric exam: Present: normal affect, normal mood - Skin Skin exam: Present: dry, warm <Wilton Lewis - Last Filed: 04/23/17 18:17> Date of Encounter: 04/23/17 Date of admission: 04/21/17 17:33 Primary care physician: Grady Nguyễn Jr, MD Consults: 04/21/17 17:38 Consult to Nephrology [CONS] Routine Consulting Provider: [facility] Reason for Consult: CKD III admitted with CHF/COPD exacerbation. Need IV lasix. Need to monitor creat Call Completed: Yes Hospital course: Ms. Stinson is a 71 year old female - Time Spent with Patient Total time spent providing and/or coordinating discharge services: - Constitutional Vitals: Temp Pulse Resp BP Pulse Ox 98.4 F 76 19 144/78 94 04/23/17 11:50 04/23/17 11:50 04/23/17 11:50 04/23/17 11:50 04/23/17 11:50 - Attending Attestation I examined this patient and my medical decision-making was reviewed with the Resident Physician. I agree with the documented findings, disposition and treatment plan as described except to the extent set forth below.
[2017-04-23] MEDS: Furosemide 40 MG/4 ML VIAL IVP SCH (10:59)
[2017-04-23] MEDS: (Febuxostat [Uloric] 80 MG) PO SCH (10:59)
[2017-04-23 11:53] VITALS: BP 144/78
[2017-04-23] MEDS ORDERED: amLODIPine 5 MG TABLET PO SCH (13:29)
== END 2017-04-23 16:23 | disposition home or self-care (01) | DRG 190 ==
LOC: EMEROO 10:36 → 2ANU 10:36
PROVIDERS: ADMIT Internal Medicine; ATTEND Internal Medicine

== ENCOUNTER 2019-04-08 15:51 | Observation (INO) ==
--- NOTE | 2019-04-08 16:19 | Emergency Department Note ---
Disposition Clinical Impression: Hematoma Disposition: Admitted As Inpatient Condition: Fair Time of Disposition: 17:50 General Adult HPI - General Chief complaint: ED Extremity Problem,Nontraumatic Stated complaint: leg swelling, "pulled muscle" Time Seen by Provider: 04/08/19 15:55 Source: patient Mode of arrival: ambulatory Limitations: no limitations Nursing Notes Reviewed: Yes Vital Signs Reviewed: Yes - History of Present Illness HPI Narrative: Patient is a 73-year-old female with a past medical history of CHF, hypertension, COPD, obesity who presents with right hip pain and bruising for the past day. Patient also endorses some increased swelling of the right thigh and right knee. She denies any trauma or injury to the affected area. Thinks maybe she bumped it when she was transferring to her bed. Patient has no history of any bleeding or clotting disorders. She is not on any anticoagulation, takes only and aspirin 81. She does not have any chest pain or shortness of breath. Denies any abdominal pain, nausea, vomiting, fevers, chills. Patient typically is able to ambulate as far as from her bed to the bathroom, however she is mostly immobile. She is on 3 L of home oxygen. Pain Scale: 10 - Related Data Home Medications Medication Instructions Recorded Confirmed Atorvastatin Calcium [Lipitor] 20 mg PO HS 09/16/16 08/02/18 Febuxostat [Uloric] 80 mg PO DAILY 09/16/16 08/02/18 Gabapentin [Neurontin] 300 mg PO TID 09/16/16 08/02/18 Multivitamin [One Daily Essential] 1 tab PO DAILY 09/16/16 08/02/18 Tramadol HCl [Ultram] 50 mg PO QID PRN 09/16/16 08/02/18 Aspirin [Lo-Dose Aspirin EC] 81 mg PO DAILY 01/22/17 08/02/18 Carvedilol 3.125 mg PO BID 01/22/17 08/02/18 Albuterol Sulfate [Ventolin Hfa] 2 puff IH Q4H PRN 04/21/17 08/02/18 Buspirone HCl [Buspar] 15 mg PO BID 08/02/18 08/02/18 Cholecalciferol (D-3) [Vitamin D] 1,000 unit PO DAILY 08/02/18 08/02/18 Losartan [Cozaar] 25 mg PO DAILY 08/02/18 08/02/18 Chloride-3 Fatty Acids [Fish Oil] 300 mg PO DAILY 08/02/18 08/02/18 Tocilizumab [Actemra] 400 mg IV QMONTH 08/02/18 08/02/18 Previous Rx's Medication Instructions Recorded Furosemide [Lasix] 40 mg PO BID #60 tablet 04/23/17 amLODIPine [Norvasc] 5 mg PO DAILY #30 tab 04/23/17 Lactobacillus [Culturelle] 1 each PO BID #6 cap.sprink 08/03/18 levoFLOXacin [Levaquin] 500 mg PO DAILY #3 tablet 08/03/18 Allergies Allergy/AdvReac Type Severity Reaction Status Date / Time No Known Allergies Allergy Verified 08/02/18 15:27 All systems ED: reviewed and negative except as stated. Review of Systems: As Per HPI Constitutional: Denies: fever, chills, weakness Eyes: Denies: eye pain, eye discharge, vision change ENT ED: Denies: ear pain, throat pain, dental pain Cardiovascular: Denies: chest pain, palpitations, dyspnea on exertion Respiratory: Denies: cough, dyspnea, wheezes Gastrointestinal: Denies: abdominal pain, nausea, vomiting Genitourinary: Denies: urgency, dysuria, frequency Musculoskeletal: Denies: back pain, neck pain, joint swelling Integumentary: Reports: lesions (Right thigh ecchymosis). Denies: rash, abrasion Neurological: Denies: headache, weakness, numbness Psychiatric: Denies: anxiety, depression, suicidal thoughts Endocrine: Denies: fatigue, heat or cold intolerance, polydipsia Past Medical History - Past Medical History Attestation: Yes The following information was validated with the patient. Source: patient Medical history: Reports: arthritis, CHF, COPD, hyperlipidemia, hypertension Surgical history: Reports: cholecystectomy, knee replacement, other Psychiatric history: Reports: anxiety - Social History Smoking Status: Never smoker Smokeless Tobacco Status: No Alcohol use: Reports: none Drug use: Reports: none Physical Exam Gen: alert, in no apparent distress, conversant, obese Head: normal inspection, atraumatic, normocephalic Eye: PERRL, EOMI, no scleral icterus ENT: moist mucous membranes, normal oropharynx, no erythema/drainage Neck: trachea midline, no LAD, full ROM CV: normal inspection, RRR, no MRG, audible s1/s2 Pulm: clear to auscultation bilaterally, no WRR, good air exchange bilaterally GI: normal inspection, soft, nontender, nondistended, active BS, no rebound/rigidity/guarding, no trauma : no CVA or suprapubic tenderness Skin/Ext: warm, dry, intact, normal color Ext: full peripheral pulses, 20cm diameter ecchymoses on the medial aspect of R thight MSK: appropriate muscle tone, full ROM, no joint swelling/erythema Back: normal inspection, full ROM Neuro: alert, orientedx3 Psych: normal affect, normal mood - General Limitations: no limitations General appearance: alert, in no apparent distress Course Course Narrative: Patient was seen and examined. Vitals were normal. Physical exam is remarkable for large ecchymosis on the medial aspect of the right side. CBC, CMP was ordered. Also DVT ultrasound and CT of right femur. - Reevaluation(s) Reevaluation #1: Consulted orthopedics. Time: 17:18 Reevaluation #2: The hospitalist was accepted for admission. Time: 17:40 Vital Signs Temperature 98.6 F 04/08/19 15:54 Pulse Rate 80 04/08/19 15:54 Respiratory Rate 22 04/08/19 15:54 Blood Pressure 138/68 04/08/19 15:54 O2 Sat by Pulse Oximetry 94 04/08/19 15:54 Temperature 98.6 F 04/08/19 15:54 Pulse Rate 80 04/08/19 15:54 Respiratory Rate 22 04/08/19 15:54 Blood Pressure 138/68 04/08/19 15:54 O2 Sat by Pulse Oximetry 94 04/08/19 15:54 Oxygen Delivery Oxygen Delivery Nasal Cannula Medical Decision Making - [facility] Narrative Medical decision making narrative: Patient is a 73-year-old female with a history of CHF, hypertension, COPD, obesity. Presenting for right hip pain and ecchymosis over right thigh. Differential includes but is not limited to musculoskeletal injury, fracture, hematoma, cellulitis, DVT, allergic reaction. CBC was remarkable for a hemoglobin of 9.8, from a baseline of approximately 12. BUN/creatinine were also elevated above baseline. CT scan was ordered out of concern for a hematoma. Scan showed a 12 x 5 x 8 hematoma as well as a torn abductor muscle. Orthopedics was consulted and will follow. Patient had a negative DVT ultrasound. CT scan did not show any signs of acute fracture. Symptoms not sustained with an allergic reaction. No signs of infection. Patient was communicated to the hospitalist and accepted for admission for trending hemoglobin and for possible intervention. - Medical Records Medical records reviewed: Yes I reviewed the patient's medical records. - Lab Data Lab results reviewed: Yes I reviewed the patient's lab results. Result diagrams: 04/08/19 16:26 04/08/19 16:26 Lab Results 04/08/19 04/08/19 Range/Units 16:26 16:26 WBC 10.9 (4.3-11.1) K/mcL RBC 2.88 L (3.82-4.97) M/mcL Hgb 9.8 L (11.5-15.4) g/dL Hct 29.9 L (35.3-44.9) % MCV 103.8 H (83.0-100.0) fL MCH 34.0 H (28.0-33.3) pg MCHC 32.8 (31.6-35.5) g/dL RDW 13.1 (11.5-14.5) % Plt Count 157 (140-400) K/mcL MPV 9.0 L (9.4-12.4) fL Seg Neutrophils % 85.3 % Lymphocytes % 7.5 % Monocytes % 5.1 % Eosinophils % 1.4 % Basophils % 0.2 % Neutrophils # 9.3 H (1.6-8.9) K/mcL Lymphocytes # 0.8 (0.6-4.6) K/mcL Monocytes # 0.6 (0.0-1.3) K/mcL Eosinophils # 0.2 (0.0-0.6) K/mcL Basophils # 0.0 (0.0-0.2) K/mcL Sodium 136 (136-145) mEq/L Potassium 4.6 (3.5-5.1) mEq/L Chloride 97 L (98-107) mEq/L Carbon Dioxide 30 H (23-29) mEq/L BUN 69 H (8-23) mg/dL Creatinine 2.34 H (0.60-1.20) mg/dL Est GFR ( Amer) 25 L (> 60) Est GFR (Non-Af Amer) 20 L (> 60) BUN/Creatinine Ratio 29 H (6-26) Glucose 255 H (70-105) mg/dL Calculated Osmolality 311 H (280-300) Calcium 9.3 (8.6-10.3) mg/dL Total Bilirubin 0.9 (0.3-1.0) mg/dL AST 13 (13-39) Units/L ALT 11 (7-52) Units/L Alkaline Phosphatase 53 (34-104) Units/L Serum Total Protein 6.0 L (6.4-8.9) g/dL Albumin 3.8 (3.5-5.7) g/dL Globulin 2.2 L (2.4-3.5) g/dL Albumin/Globulin Ratio 1.7 (1.1-2.2) - Radiology Data Radiology results reviewed: Yes I reviewed the patient's radiology results. Femur CT 04/08/19 16:21 IMPRESSION: 1. Developing 12 x 8 x 5.4 cm intramuscular hematoma in the right adductor yanni muscle with blood products dissecting between the adductor and posterior compartments of the thigh. 2. Associated high-grade partial tear of the adductor yanni muscle. D/ /08/2019 17:05:33 Puma Ramirez MD / alfredito Interpreting Provider: Puma Ramirez MD
--- NOTE | 2019-04-08 16:31 | Emergency Department Note ---
Disposition Clinical Impression: Hematoma Disposition: Admitted As Inpatient Condition: Fair Referrals: Grady Nguyễn Jr, MD [Primary Care Provider] - Forms: ED Satisfaction Letter Time of Disposition: 18:10 General Adult HPI - General Chief complaint: ED Extremity Problem,Nontraumatic Stated complaint: leg swelling, "pulled muscle" Time Seen by Provider: 04/08/19 15:55 Source: patient Mode of arrival: ambulatory Limitations: no limitations Nursing Notes Reviewed: Yes Vital Signs Reviewed: Yes - History of Present Illness Pain Scale: 10 - Related Data Home Medications Medication Instructions Recorded Confirmed Atorvastatin Calcium [Lipitor] 20 mg PO HS 09/16/16 08/02/18 Febuxostat [Uloric] 80 mg PO DAILY 09/16/16 08/02/18 Gabapentin [Neurontin] 300 mg PO TID 09/16/16 08/02/18 Multivitamin [One Daily Essential] 1 tab PO DAILY 09/16/16 08/02/18 Tramadol HCl [Ultram] 50 mg PO QID PRN 09/16/16 08/02/18 Aspirin [Lo-Dose Aspirin EC] 81 mg PO DAILY 01/22/17 08/02/18 Carvedilol 3.125 mg PO BID 01/22/17 08/02/18 Albuterol Sulfate [Ventolin Hfa] 2 puff IH Q4H PRN 04/21/17 08/02/18 Buspirone HCl [Buspar] 15 mg PO BID 08/02/18 08/02/18 Cholecalciferol (D-3) [Vitamin D] 1,000 unit PO DAILY 08/02/18 08/02/18 Losartan [Cozaar] 25 mg PO DAILY 08/02/18 08/02/18 [place]-3 Fatty Acids [Fish Oil] 300 mg PO DAILY 08/02/18 08/02/18 Tocilizumab [Actemra] 400 mg IV QMONTH 08/02/18 08/02/18 Previous Rx's Medication Instructions Recorded Furosemide [Lasix] 40 mg PO BID #60 tablet 04/23/17 amLODIPine [Norvasc] 5 mg PO DAILY #30 tab 04/23/17 Lactobacillus [Culturelle] 1 each PO BID #6 cap.sprink 08/03/18 levoFLOXacin [Levaquin] 500 mg PO DAILY #3 tablet 08/03/18 Allergies Allergy/AdvReac Type Severity Reaction Status Date / Time No Known Allergies Allergy Verified 08/02/18 15:27 Constitutional: Denies: fever, chills, weakness Eyes: Denies: eye pain, eye discharge, vision change ENT ED: Denies: ear pain, throat pain, dental pain Cardiovascular: Denies: chest pain, palpitations, dyspnea on exertion Respiratory: Denies: cough, dyspnea, wheezes Gastrointestinal: Denies: abdominal pain, nausea, vomiting Genitourinary: Denies: urgency, dysuria, frequency Musculoskeletal: Denies: back pain, neck pain, joint swelling Integumentary: Reports: lesions (Right thigh ecchymosis). Denies: rash, abrasion Neurological: Denies: headache, weakness, numbness Psychiatric: Denies: anxiety, depression, suicidal thoughts Endocrine: Denies: fatigue, heat or cold intolerance, polydipsia Past Medical History - Past Medical History Medical history: Reports: arthritis, CHF, COPD, hyperlipidemia, hypertension Surgical history: Reports: cholecystectomy, knee replacement, other Psychiatric history: Reports: anxiety - Social History Smoking Status: Never smoker Smokeless Tobacco Status: No Alcohol use: Reports: none Drug use: Reports: none Physical Exam - General Limitations: no limitations General appearance: alert, in no apparent distress Course Vital Signs Temperature 98.6 F 04/08/19 15:54 Pulse Rate 80 04/08/19 15:54 Respiratory Rate 22 04/08/19 15:54 Blood Pressure 138/68 04/08/19 15:54 O2 Sat by Pulse Oximetry 94 04/08/19 15:54 Temperature 98.6 F 04/08/19 15:54 Pulse Rate 80 04/08/19 15:54 Respiratory Rate 22 04/08/19 15:54 Blood Pressure 138/68 04/08/19 15:54 O2 Sat by Pulse Oximetry 94 04/08/19 15:54 Oxygen Delivery Oxygen Delivery Nasal Cannula Medical Decision Making - Lab Data Result diagrams: 04/08/19 16:26 04/08/19 16:26 Lab Results 04/08/19 04/08/19 Range/Units 16:26 16:26 WBC 10.9 (4.3-11.1) K/mcL RBC 2.88 L (3.82-4.97) M/mcL Hgb 9.8 L (11.5-15.4) g/dL Hct 29.9 L (35.3-44.9) % MCV 103.8 H (83.0-100.0) fL MCH 34.0 H (28.0-33.3) pg MCHC 32.8 (31.6-35.5) g/dL RDW 13.1 (11.5-14.5) % Plt Count 157 (140-400) K/mcL MPV 9.0 L (9.4-12.4) fL Seg Neutrophils % 85.3 % Lymphocytes % 7.5 % Monocytes % 5.1 % Eosinophils % 1.4 % Basophils % 0.2 % Neutrophils # 9.3 H (1.6-8.9) K/mcL Lymphocytes # 0.8 (0.6-4.6) K/mcL Monocytes # 0.6 (0.0-1.3) K/mcL Eosinophils # 0.2 (0.0-0.6) K/mcL Basophils # 0.0 (0.0-0.2) K/mcL Sodium 136 (136-145) mEq/L Potassium 4.6 (3.5-5.1) mEq/L Chloride 97 L (98-107) mEq/L Carbon Dioxide 30 H (23-29) mEq/L BUN 69 H (8-23) mg/dL Creatinine 2.34 H (0.60-1.20) mg/dL Est GFR ( Amer) 25 L (> 60) Est GFR (Non-Af Amer) 20 L (> 60) BUN/Creatinine Ratio 29 H (6-26) Glucose 255 H (70-105) mg/dL Calculated Osmolality 311 H (280-300) Calcium 9.3 (8.6-10.3) mg/dL Total Bilirubin 0.9 (0.3-1.0) mg/dL AST 13 (13-39) Units/L ALT 11 (7-52) Units/L Alkaline Phosphatase 53 (34-104) Units/L Serum Total Protein 6.0 L (6.4-8.9) g/dL Albumin 3.8 (3.5-5.7) g/dL Globulin 2.2 L (2.4-3.5) g/dL Albumin/Globulin Ratio 1.7 (1.1-2.2) Attestation Statement - Attestation Attestation: I examined this patient and my medical decision-making was reviewed with the Resident Physician. I agree with the documented findings, disposition and treatment plan as described except to the extent set forth below. Patient presents to the ED with a chief complaint of right thigh pain. Patient noticed bruising of her thigh this a.m. Denies injury. Patient states she did not do much yesterday. Today she noticed the bruise. It is not painful when she is sitting, but it hurts when she stands. On examination she has an extensive ecchymotic area on the right middle thigh to just proximal to the knee. It extends to the posterior thigh as well. Plan. Ultrasound, labs, CT. Patient was a large intramuscular hematoma. Orthopedics has been consult it. Patient has had a drop in her hemoglobin of 2 g. She is hemolytically stable this time, however we believe she should be admitted and observed overnight. Calling for admission. Patient is admitted to the hospitalist with orthopedics consult Femur CT 04/08/19 16:21 IMPRESSION: 1. Developing 12 x 8 x 5.4 cm intramuscular hematoma in the right adductor yanni muscle with blood products dissecting between the adductor and posterior compartments of the thigh. 2. Associated high-grade partial tear of the adductor yanni muscle. D/ /08/2019 17:05:33 Puma Ramirez MD / alfredito Interpreting Provider: Puma Ramirez MD
[2019-04-08 16:42] LABS: Hematocrit 29.9 % (35.3-44.9); Hemoglobin 9.8 g/dL (11.5-15.4); Mean Corpuscular HGB Conc 32.8 g/dL (31.6-35.5); Mean Corpuscular Volume 103.8 fL (83.0-100.0); Platelet Count 157 K/mcL (140-400); Red Blood Count 2.88 M/mcL (3.82-4.97); Red Cell Distribution Width 13.1 % (11.5-14.5); White Blood Count 10.9 K/mcL (4.3-11.1)
[2019-04-08 16:43] LABS: Basophils % 0.2 %; Eosinophils # 0.2 K/mcL (0.0-0.6); Eosinophils % 1.4 %; Lymphocytes # 0.8 K/mcL (0.6-4.6); Lymphocytes % 7.5 %; Monocytes # 0.6 K/mcL (0.0-1.3); Monocytes % 5.1 %; Neutrophils # 9.3 K/mcL (1.6-8.9); Segmented Neutrophils % 85.3 %
[2019-04-08 16:53] LABS: Albumin 3.8 g/dL (3.5-5.7); Albumin/Globulin Ratio 1.7 (1.1-2.2); Bilirubin,Total 0.9 mg/dL (0.3-1.0); Calcium 9.3 mg/dL (8.6-10.3); Globulin 2.2 g/dL (2.4-3.5); Potassium 4.6 mEq/L (3.5-5.1)
[2019-04-08] MEDS ORDERED: Naloxone 0.4 MG/ML INJ IVP PRN (19:13)
--- NOTE | 2019-04-08 21:58 | Internal Med History&Physical ---
Date of Encounter: 04/08/19 Time of Encounter: 18:00 Internal Medicine - H&P: HPI Chief complaint: RIght thigh pain and swelling Admitted From: Home Plans for Post Hospital Care: Home History of present illness: Ms. Stinson is a 73 year old female who presents to the ED with a chief complaint of right thigh pain. She noticed a bulge between her thighs getting to the end of yesterday which became painful this morning. She states that the pain extends from her right groin all the way down her right leg. It is exacer bated by walking and relieved by rest. She also noticed bruising of the skin over her medial right thigh. She cannot recall any recent trauma. She denies SOB, palpitations, chest pain and dizziness. Past Med Surg Social Fam HX - Past Medical History Source: patient Medical history: arthritis, CHF, COPD, hyperlipidemia, hypertension Additional medical history: pneumonia Psychiatric history: anxiety - Past Surgical History Surgical History: knee replacement Additional surgical history: (R) ELBOW REPLACEMENT - Social History Smoking Status: Never smoker Smokeless Tobacco Status: No Alcohol use: none Drug use: none - Family History Son Hx Family Cardiac Disorders: Yes (mother, brother, sisiter) Hx Family Autoimmune Disorders: Yes (rheumatoid arthritis) Internal Medicine - H&P: Meds Atorvastatin Calcium [Lipitor] 20 mg PO HS 09/16/16 [History] Febuxostat [Uloric] 80 mg PO DAILY 09/16/16 [History] Gabapentin [Neurontin] 300 mg PO TID 09/16/16 [History] Multivitamin [One Daily Essential] 1 tab PO DAILY 09/16/16 [History] Tramadol HCl [Ultram] 50 mg PO QID PRN 09/16/16 [History] Aspirin [Lo-Dose Aspirin EC] 81 mg PO DAILY 01/22/17 [History] Carvedilol 3.125 mg PO BID 01/22/17 [History] Albuterol Sulfate [Ventolin Hfa] 2 puff IH Q4H PRN 04/21/17 [History] Furosemide [Lasix] 40 mg PO BID #60 tablet 04/23/17 [Rx] amLODIPine [Norvasc] 5 mg PO DAILY #30 tab 04/23/17 [Rx] Buspirone HCl [Buspar] 15 mg PO BID 08/02/18 [History] Cholecalciferol (D-3) [Vitamin D] 1,000 unit PO DAILY 08/02/18 [History] Losartan [Cozaar] 25 mg PO DAILY 08/02/18 [History] [place]-3 Fatty Acids [Fish Oil] 300 mg PO DAILY 08/02/18 [History] Tocilizumab [Actemra] 400 mg IV QMONTH 08/02/18 [History] Lactobacillus [Culturelle] 1 each PO BID #6 cap.sprink 08/03/18 [Rx] levoFLOXacin [Levaquin] 500 mg PO DAILY #3 tablet 08/03/18 [Rx] Allergy/AdvReac Type Severity Reaction Status Date / Time No Known Allergies Allergy Verified 08/02/18 15:27 All Systems PM: A 10-system review of systems was performed and is negative for pertinent findings except as documented above in the HPI. - Constitutional Vitals: Temp Pulse Resp BP Pulse Ox 36.7 C 75 15 147/72 93 04/08/19 20:39 04/08/19 20:39 04/08/19 20:39 04/08/19 20:39 04/08/19 20:39 General appearance: Present: A&O X 3, obese, answers questions appropriately (e) Exam: patient is morbidly obese - Head Head exam: Present: atraumatic, normocephalic - Eye Eye exam: Present: EOMI, PERRL Pupils: Present: PERRL - ENT ENT exam: Present: mucous membranes moist - Neck Neck exam general surgery: Present: full ROM, normal inspection - Respiratory Respiratory exam: Present: CTAB - Cardiovascular Cardiovascular exam: Present: +S1, +S2 - GI/Abdominal GI/Abdominal exam: Present: soft, no peritoneal signs - Extremities Exam Additional comments: Patient has inner right mid thigh swelling with extensive ecchymossis over her skin - Neurological Exam Neurological exam: Present: oriented X3, no focal deficits - Psychiatric Psychiatric exam: Present: anxious - Skin Additional comments: inner right thigh ecchymosis Internal Med - H&P Results - Labs CBC & Chem 7: 04/08/19 16:26 04/08/19 16:26 Labs: Short CBC 04/08/19 Range/Units 16:26 WBC 10.9 (4.3-11.1) K/mcL Hgb 9.8 L (11.5-15.4) g/dL Hct 29.9 L (35.3-44.9) % Plt Count 157 (140-400) K/mcL Neutrophils # 9.3 H (1.6-8.9) K/mcL BMP 04/08/19 16:26 Sodium 136 Potassium 4.6 Chloride 97 L Carbon Dioxide 30 H BUN 69 H Creatinine 2.34 H Glucose 255 H Calcium 9.3 Liver Function 04/08/19 Range/Units 16:26 Total Bilirubin 0.9 (0.3-1.0) mg/dL AST 13 (13-39) Units/L ALT 11 (7-52) Units/L Alkaline Phosphatase 53 (34-104) Units/L Albumin 3.8 (3.5-5.7) g/dL - Impressions ITS Impressions Femur CT 04/08/19 16:21 IMPRESSION: 1. Developing 12 x 8 x 5.4 cm intramuscular hematoma in the right adductor yanni muscle with blood products dissecting between the adductor and posterior compartments of the thigh. 2. Associated high-grade partial tear of the adductor yanni muscle. D/ : / 04/08/2019 17:05:33 Puma Ramirez MD / alfredito Interpreting Provider: Puma Ramirez MD - Assessment and Plan (1) Hematoma Current Visit: Yes Status: Acute Assessment and plan: Orthopedic surgery consulted Will monitor H and H (2) DVT prophylaxis Current Visit: Yes Status: Acute (3) Hypertension Current Visit: Yes Status: Chronic Assessment and plan: Systolic BP in 150s Patient has no complaints Will resume home meds Qualifiers: Hypertension type: unspecified secondary hypertension Qualified Code(s): I15.9 - Secondary hypertension, unspecified; I15 - Secondary hypertension (4) COPD (chronic obstructive pulmonary disease) Current Visit: Yes Status: Chronic Assessment and plan: Not in exacerbation. Uses 2 L of O2 during the day and 3 to 5 litres at night. Lung diaz are clear. PRN Breathing treatments Qualifiers: COPD type: unspecified COPD Qualified Code(s): J44.9 - Chronic obstructive pulmonary disease, unspecified (5) Morbid (severe) obesity due to excess calories Current Visit: Yes Status: Acute Assessment and plan: Counseled on weight loss (6) Diastolic heart failure Current Visit: Yes Status: Chronic Qualifiers: Heart failure chronicity: chronic Qualified Code(s): I50.32 - Chronic diastolic (congestive) heart failure - Summary of Assessment and Plan Summary of Assessment and Plan: No signs of acute exacerbation will continue home meds - Time Spent With Patient Total time spent is greater than 50% in coordination of care (as documented) at patient's floor/unit and/or counseling patient:
[2019-04-08] MEDS ORDERED: *HR* Heparin 5,000 UNIT/ML VIAL SQ SCH (22:00)
[2019-04-08 22:49] LABS: Hematocrit 28.4 % (35.3-44.9); Hemoglobin 9.7 g/dL (11.5-15.4)
[2019-04-09] MEDS: traMADol 50 MG TABLET PO PRN ×3 (02:24→17:20)
[2019-04-09 06:19] LABS: Hematocrit 27.2 % (35.3-44.9); Hemoglobin 8.9 g/dL (11.5-15.4)
--- NOTE | 2019-04-09 06:42 | Orthopedics Progress Note ---
Date of Encounter: 04/09/19 Time of Encounter: 06:41 Subjective Interval history: Patient seen this morning, admitted for hematoma of right inner upper thigh, patient reports no trauma, patient reports no pain just when weightbearing. Patient has ecchymosis of the right upper thigh no significant tension minimal tenderness to palpation. Neurovascular intact. CT scan reviewed shows hematoma, surgical drainage is not recommended. Options are observation versus interventional radiology ultrasound-guided aspiration. We will further discuss with IR before proceeding. Objective Vital signs: Vital Signs Temp Pulse Resp BP Pulse Ox 04/09/19 03:58 97.3 F L 76 16 131/75 98 04/08/19 22:31 98.4 F 80 15 144/72 91 04/08/19 20:39 98.0 F 75 15 147/72 93 04/08/19 19:31 70 153/50 04/08/19 15:54 98.6 F 80 22 138/68 94 Intake and Output 04/08/19 04/08/19 04/09/19 15:59 23:59 07:59 Other: # Voids 1 1 Weight 157.397 kg 157.4 kg Patient Weight 04/09/19 23:59 Weight 157.4 kg - Labs CBC & BMP: 04/09/19 05:54 04/08/19 16:26 Labs: Abnormal lab results RBC 2.88 M/mcL (3.82-4.97) L 04/08/19 16:26 Hgb 8.9 g/dL (11.5-15.4) L 04/09/19 05:54 Hct 27.2 % (35.3-44.9) L 04/09/19 05:54 MCV 103.8 fL (83.0-100.0) H 04/08/19 16:26 MCH 34.0 pg (28.0-33.3) H 04/08/19 16:26 MPV 9.0 fL (9.4-12.4) L 04/08/19 16:26 Neutrophils # 9.3 K/mcL (1.6-8.9) H 04/08/19 16:26 Chloride 97 mEq/L (98-107) L 04/08/19 16:26 Carbon Dioxide 30 mEq/L (23-29) H 04/08/19 16:26 BUN 69 mg/dL (8-23) H 04/08/19 16:26 Creatinine 2.34 mg/dL (0.60-1.20) H 04/08/19 16:26 Est GFR ( Amer) 25 (> 60) L 04/08/19 16:26 Est GFR (Non-Af Amer) 20 (> 60) L 04/08/19 16:26 BUN/Creatinine Ratio 29 (6-26) H 04/08/19 16:26 Glucose 255 mg/dL (70-105) H 04/08/19 16:26 Calculated Osmolality 311 (280-300) H 04/08/19 16:26 Serum Total Protein 6.0 g/dL (6.4-8.9) L 04/08/19 16:26 Globulin 2.2 g/dL (2.4-3.5) L 04/08/19 16:26 Consult Discharge Plan - Plan Referrals: Grady Nguyễn Jr, MD [Primary Care Provider] -
[2019-04-09 14:14] LABS: Hematocrit 28.5 % (35.3-44.9); Hemoglobin 9.2 g/dL (11.5-15.4)
[2019-04-09 14:30] VITALS: BP 127/62
--- NOTE | 2019-04-09 16:55 | Discharge Summary ---
- NOTES TO OUTPATIENT PROVIDER Notes to Outpatient Provider: Patient needs to have her hemoglobin followed Orders not resulted at time of discharge: Pending orders 04/09/19 16:30 H/H [Hemoglobin and Hematocrit] [HEME] Q6H Date of Encounter: 04/09/19 Time of Encounter: 10:15 - Discharge Diagnosis (1) Hematoma Priority: Primary Status: Acute (2) DVT prophylaxis Priority: Secondary Status: Acute (3) Hypertension Priority: Secondary Status: Chronic Qualifiers: Hypertension type: unspecified secondary hypertension Qualified Code(s): I15.9 - Secondary hypertension, unspecified; I15 - Secondary hypertension (4) COPD (chronic obstructive pulmonary disease) Priority: Secondary Status: Chronic Qualifiers: COPD type: unspecified COPD Qualified Code(s): J44.9 - Chronic obstructive pulmonary disease, unspecified (5) Morbid (severe) obesity due to excess calories Priority: Secondary Status: Acute (6) Diastolic heart failure Priority: Secondary Status: Chronic Qualifiers: Heart failure chronicity: chronic Qualified Code(s): I50.32 - Chronic diastolic (congestive) heart failure Hospital course: Ms. Stinson is a 73 year old female who presented with right thigh pain and swelling. CT on admission revealed a large intramuscular hematoma. Patient's hemoglobin remained fairly stable on admission and she had no signs or symptoms of acute blood loss. The orthopedic believe it will be safe to take a more conservative approach at this moment. Patient will be discharged to follow-up with hemoglobin checks with her PCP. Discharge discussed with: patient, family, healthcare consultant - Time Spent with Patient Total time spent providing and/or coordinating discharge services: Time spent: Greater than 30 minutes (33) - Discharge Medications Prescriptions: New Acetaminophen [Tylenol] 500 mg PO Q6H PRN #20 tablet PRN Reason: Mild Pain Continued Tramadol HCl [Ultram] 50 mg PO QID PRN PRN Reason: Mild To Moderate Pain Gabapentin [Neurontin] 300 mg PO TID Multivitamin [One Daily Essential] 1 tab PO DAILY Febuxostat [Uloric] 80 mg PO DAILY Atorvastatin Calcium [Lipitor] 20 mg PO HS Carvedilol 3.125 mg PO BID Aspirin [Lo-Dose Aspirin EC] 81 mg PO DAILY Albuterol Sulfate [Ventolin Hfa] 2 puff IH Q4H PRN PRN Reason: Shortness Of Breath Furosemide [Lasix] 40 mg PO BID #60 tablet amLODIPine [Norvasc] 5 mg PO DAILY #30 tab Losartan [Cozaar] 25 mg PO DAILY Tocilizumab [Actemra] 400 mg IV QMONTH Buspirone HCl [Buspar] 15 mg PO BID [place]-3 Fatty Acids [Fish Oil] 300 mg PO DAILY Cholecalciferol (D-3) [Vitamin D] 1,000 unit PO DAILY Home Medications: Atorvastatin Calcium [Lipitor] 20 mg PO HS 09/16/16 [History] Febuxostat [Uloric] 80 mg PO DAILY 09/16/16 [History] Gabapentin [Neurontin] 300 mg PO TID 09/16/16 [History] Multivitamin [One Daily Essential] 1 tab PO DAILY 09/16/16 [History] Tramadol HCl [Ultram] 50 mg PO QID PRN 09/16/16 [History] Aspirin [Lo-Dose Aspirin EC] 81 mg PO DAILY 01/22/17 [History] Carvedilol 3.125 mg PO BID 01/22/17 [History] Albuterol Sulfate [Ventolin Hfa] 2 puff IH Q4H PRN 04/21/17 [History] Furosemide [Lasix] 40 mg PO BID #60 tablet 04/23/17 [Rx] amLODIPine [Norvasc] 5 mg PO DAILY #30 tab 04/23/17 [Rx] Buspirone HCl [Buspar] 15 mg PO BID 08/02/18 [History] Cholecalciferol (D-3) [Vitamin D] 1,000 unit PO DAILY 08/02/18 [History] Losartan [Cozaar] 25 mg PO DAILY 08/02/18 [History] [place]-3 Fatty Acids [Fish Oil] 300 mg PO DAILY 08/02/18 [History] Tocilizumab [Actemra] 400 mg IV QMONTH 08/02/18 [History] Acetaminophen [Tylenol] 500 mg PO Q6H PRN #20 tablet 04/09/19 [Rx] Allergies/Adverse Reactions: Allergy/AdvReac Type Severity Reaction Status Date / Time No Known Allergies Allergy Verified 08/02/18 15:27 Date of admission: 04/08/19 19:04 Primary care physician: Grady Nguyễn Jr, MD Consults: 04/08/19 17:19 Consult to Orthopedic Surgery [CONS] Stat Consulting Provider: Hardeep Ibanez Reason for Consult: hematoma, muscle tear Call Completed: No - Constitutional Vitals: Temp Pulse Resp BP Pulse Ox 36.7 C 83 17 127/62 94 04/09/19 14:29 04/09/19 14:29 04/09/19 14:29 04/09/19 14:29 04/09/19 14:29 General appearance: Present: A&O X 3, obese, answers questions appropriately (e) Exam: Morbidly obese patient siting comfortably in bed. No distress. Right thigh swelling looks about same as yesterday Overlying ecchymosis persists. Vitals are stable. - Patient Status Disposition: Home, Self-Care Condition: Good Functional capacity at discharge: uses cane/walker Overall status at discharge: patient is progressing back to baseline - Ambulatory Orders Ambulatory Orders: Hemoglobin and Hematocrit [HEME] Time Frame: 3 Days, Facility: [facility] [place], Location: [facility] Phys - Discharge Instructions Follow Up With: Grady Nguyễn Jr, MD [Primary Care Provider] - - Diet and Activity Activity: increase activity as tolerated Diet: advance to your usual diet
[2019-04-09 17:06] LABS: Hemoglobin 9.8 g/dL (11.5-15.4)
== END 2019-04-09 17:30 | disposition home or self-care (01) ==
LOC: EMEROOARM 15:51 → 3NENU 15:51 → SUATTDRO 19:04 → 3NENU 20:03
PROVIDERS: ADMIT Student in an Organized Health Care Education/Training Program; ATTEND Internal Medicine

== ENCOUNTER 2019-05-02 20:45 | Inpatient (IN) ==
[2019-05-02] MEDS ORDERED: Ipratropium/Albuterol Neb 3 ML IH ONE (20:57)
[2019-05-02] MEDS ORDERED: methylPREDNISolone 125 MG/2 ML VIAL IVP ONE (20:57)
[2019-05-02 23:04] LABS: Basophils % 0.2 %; Eosinophils # 0.3 K/mcL (0.0-0.6); Eosinophils % 3.3 %; Hematocrit 30.5 % (35.3-44.9); Hemoglobin 9.7 g/dL (11.5-15.4); Immature Granulocytes % 0.4 % (0-4); Lymphocytes # 1.1 K/mcL (0.6-4.6); Lymphocytes % 11.1 %; Mean Corpuscular HGB Conc 31.8 g/dL (31.6-35.5); Mean Corpuscular Hemoglobin 33.6 pg (28.0-33.3); Mean Corpuscular Volume 105.5 fL (83.0-100.0); Mean Platelet Volume 8.2 fL (9.4-12.4); Monocytes # 0.7 K/mcL (0.0-1.3); Monocytes % 7.6 %; Neutrophils # 7.6 K/mcL (1.6-8.9); Platelet Count 167 K/mcL (140-400); Red Blood Count 2.89 M/mcL (3.82-4.97); Red Cell Distribution Width 14.2 % (11.5-14.5); Segmented Neutrophils % 77.4 %; White Blood Count 9.8 K/mcL (4.3-11.1)
[2019-05-02 23:26] LABS: Albumin 3.8 g/dL (3.5-5.7); Albumin/Globulin Ratio 1.4 (1.1-2.2); Bilirubin,Total 0.5 mg/dL (0.3-1.0); Calcium 10.3 mg/dL (8.6-10.3); Globulin 2.7 g/dL (2.4-3.5); Magnesium 1.9 mg/dL (1.6-2.6); Phosphorous 3.5 mg/dL (2.7-4.5); Potassium 4.4 mEq/L (3.5-5.1); Total Protein 6.5 g/dL (6.4-8.9); Troponin I 0.03 ng/mL (< 0.04)
[2019-05-03 00:18] LABS: Bilirubin,Urine Negative (Negative); Blood,Urine Moderate (Negative); Clarity,Urine Cloudy (Clear); Color,Urine Yellow (Yellow); Glucose,Urine (UA) Normal (Normal); Ketones,Urine Negative (Negative); Leukocyte Esterase,Urine Moderate (Negative); Nitrite,Urine Negative (Negative); Protein,Urine 30 mg/dL (Neg-Trace); Specific Gravity,Urine 1.015 (1.010-1.025); Urobilinogen,Urine Normal (Normal)
[2019-05-03 00:20] LABS: Hyaline Casts,Urine None Seen per lpf (None-Few); Squamous Epithelial Cell,Urine Many per lpf (None-Few)
[2019-05-03 00:25] LABS: Bacteria,Urine Few per hpf (None-Few); Mucus,Urine Few (Few); Yeast,Urine Few per hpf (None Seen)
[2019-05-03] MEDS ORDERED: Azithromycin 500 MG in D5% in Water 250 ML IVPB STA (00:54)
[2019-05-03] MEDS ORDERED: *HR* HYDROcodone/Acet 5/325 mg TABLET PO PRN (03:17)
[2019-05-03] MEDS ORDERED: Acetaminophen 325 MG TABLET PO PRN (03:17)
[2019-05-03] MEDS ORDERED: Albuterol 2.5 MG/3 ML NEBULIZER IH PRN (03:17)
[2019-05-03] MEDS ORDERED: Naloxone 0.4 MG/ML INJ IVP PRN (03:17)
[2019-05-03] MEDS: levoFLOXacin 750 MG/150 ML 750 MG/150 ML BAG IVPB SCH (04:22)
[2019-05-03] MEDS: *HR* Heparin 5,000 UNIT/ML VIAL SQ SCH ×3 (04:22→21:20)
[2019-05-03] MEDS: Ipratropium/Albuterol Neb 3 ML IH SCH ×4 (04:43→21:33)
[2019-05-03] MEDS ORDERED: *HR* Dextrose 50 % in Water (Syg) 50 ML SYRINGE IVP PRN (04:44)
[2019-05-03] MEDS ORDERED: D5% in Water 1,000 ML IVC PRN (04:44)
[2019-05-03] MEDS ORDERED: Dextrose Gel 15 GM/37.5 ML TUBE PO PRN ×2 (04:44)
[2019-05-03] MEDS: Insulin LISPRO 300 UNITS/3 ML VIAL SQ SCH ×5 (05:20→21:19)
[2019-05-03 05:36] LABS: Basophils % 0.2 %; Eosinophils % 0.1 %; Hematocrit 30.2 % (35.3-44.9); Hemoglobin 9.7 g/dL (11.5-15.4); Immature Granulocytes % 0.5 % (0-4); Lymphocytes # 0.5 K/mcL (0.6-4.6); Lymphocytes % 4.9 %; Mean Corpuscular HGB Conc 32.1 g/dL (31.6-35.5); Mean Corpuscular Hemoglobin 34.2 pg (28.0-33.3); Mean Corpuscular Volume 106.3 fL (83.0-100.0); Mean Platelet Volume 8.8 fL (9.4-12.4); Monocytes # 0.1 K/mcL (0.0-1.3); Monocytes % 0.7 %; Neutrophils # 9.8 K/mcL (1.6-8.9); Platelet Count 172 K/mcL (140-400); Red Blood Count 2.84 M/mcL (3.82-4.97); Red Cell Distribution Width 13.9 % (11.5-14.5); Segmented Neutrophils % 93.6 %; White Blood Count 10.4 K/mcL (4.3-11.1)
[2019-05-03 05:51] LABS: Albumin 3.8 g/dL (3.5-5.7); Albumin/Globulin Ratio 1.5 (1.1-2.2); Bilirubin,Total 0.5 mg/dL (0.3-1.0); Calcium 10.6 mg/dL (8.6-10.3); Globulin 2.6 g/dL (2.4-3.5); Magnesium 1.9 mg/dL (1.6-2.6); Potassium 4.9 mEq/L (3.5-5.1); Total Protein 6.4 g/dL (6.4-8.9)
[2019-05-03 05:56] LABS: INR 0.9
[2019-05-03] MEDS ORDERED: methylPREDNISolone 125 MG/2 ML VIAL IVP SCH (06:00)
[2019-05-03 07:11] LABS: Activated Partial Thrombo Time 19.6 Seconds (26.0-36.0)
[2019-05-03] MEDS: carvediloL 6.25 MG TABLET PO SCH ×2 (07:44→17:25)
[2019-05-03] MEDS ORDERED: NON-FORMULARY MEDICATION 1 EACH EACH (Multivitamin [One Daily Essential] 1 TAB) PO SCH (09:00)
[2019-05-03] MEDS ORDERED: NON-FORMULARY MEDICATION 1 EACH EACH (Febuxostat [Uloric] 80 MG) PO SCH (09:00)
[2019-05-03] MEDS: Cholecalciferol (D-3) 1,000 UNIT (25MCG) TABLET PO SCH (09:55)
[2019-05-03] MEDS: Gabapentin 300 MG CAPSULE PO SCH ×3 (09:57→21:20)
[2019-05-03] MEDS: diazePAM 2 MG TABLET PO SCH ×2 (09:57→21:20)
[2019-05-03] MEDS: Aspirin Enteric Coated 81 MG Tablet PO SCH (09:57)
[2019-05-03] MEDS: amLODIPine 5 MG TABLET PO SCH (09:58)
[2019-05-03] MEDS: Multivit/Ca/Min/Fe/FA 1 TAB TABLET PO SCH (09:58)
[2019-05-03] MEDS: Ascorbic Acid 500 MG TABLET PO SCH (09:58)
[2019-05-03] MEDS: Insulin DETEMIR 100 UNIT/ML X5UNITS SQ SCH ×2 (13:13→21:20)
[2019-05-03] MEDS: methylPREDNISolone 125 MG/2 ML VIAL IVP SCH (17:25)
[2019-05-04] MEDS: Ipratropium/Albuterol Neb 3 ML IH SCH ×4 (04:03→21:58)
[2019-05-04] MEDS: *HR* Heparin 5,000 UNIT/ML VIAL SQ SCH ×3 (05:54→21:06)
[2019-05-04] MEDS: methylPREDNISolone 125 MG/2 ML VIAL IVP SCH ×2 (05:55→17:18)
[2019-05-04] MEDS: diazePAM 2 MG TABLET PO SCH ×2 (08:42→21:03)
[2019-05-04] MEDS: Gabapentin 300 MG CAPSULE PO SCH ×3 (08:43→21:03)
[2019-05-04] MEDS: carvediloL 6.25 MG TABLET PO SCH ×2 (08:43→17:15)
[2019-05-04] MEDS: Cholecalciferol (D-3) 1,000 UNIT (25MCG) TABLET PO SCH (08:43)
[2019-05-04] MEDS: amLODIPine 5 MG TABLET PO SCH (08:43)
[2019-05-04] MEDS: Aspirin Enteric Coated 81 MG Tablet PO SCH (08:44)
[2019-05-04] MEDS: Insulin DETEMIR 100 UNIT/ML X5UNITS SQ SCH ×2 (08:46→21:03)
[2019-05-04] MEDS: Insulin LISPRO 300 UNITS/3 ML VIAL SQ SCH ×4 (08:47→21:04)
[2019-05-05] MEDS: Ipratropium/Albuterol Neb 3 ML IH SCH ×2 (03:41→10:12)
[2019-05-05] MEDS: levoFLOXacin 750 MG/150 ML 750 MG/150 ML BAG IVPB SCH (04:20)
[2019-05-05] MEDS: *HR* Heparin 5,000 UNIT/ML VIAL SQ SCH (05:37)
[2019-05-05] MEDS: methylPREDNISolone 125 MG/2 ML VIAL IVP SCH (05:40)
[2019-05-05] MEDS: Multivit/Ca/Min/Fe/FA 1 TAB TABLET PO SCH (07:37)
[2019-05-05] MEDS: diazePAM 2 MG TABLET PO SCH (07:37)
[2019-05-05] MEDS: Cholecalciferol (D-3) 1,000 UNIT (25MCG) TABLET PO SCH (07:37)
[2019-05-05] MEDS: Ascorbic Acid 500 MG TABLET PO SCH (07:37)
[2019-05-05] MEDS: Aspirin Enteric Coated 81 MG Tablet PO SCH (07:37)
[2019-05-05] MEDS: carvediloL 6.25 MG TABLET PO SCH (07:37)
[2019-05-05] MEDS: amLODIPine 5 MG TABLET PO SCH (07:37)
[2019-05-05] MEDS: Gabapentin 300 MG CAPSULE PO SCH (07:37)
[2019-05-05] MEDS: Insulin LISPRO 300 UNITS/3 ML VIAL SQ SCH ×2 (07:40→11:32)
[2019-05-05] MEDS: Insulin DETEMIR 100 UNIT/ML X5UNITS SQ SCH (07:50)
[2019-05-05 11:03] VITALS: BP 121/69
[2019-05-07] MEDS ORDERED: levoFLOXacin 750 MG TABLET PO SCH (04:30)
== END 2019-05-05 14:26 | disposition home health service (06) | DRG 190 ==
LOC: EMEROOARM 20:45 → 3BNU 20:45 → SUATTDRO 05-03 01:10 → 3BNU 05-03 01:51
PROVIDERS: ADMIT Family Medicine; ATTEND Family Medicine

== ENCOUNTER 2019-07-20 15:36 | Inpatient (IN) ==
[2019-07-20] MEDS ORDERED: methylPREDNISolone 125 MG/2 ML VIAL IVP ONE (15:50)
[2019-07-20] MEDS ORDERED: Ipratropium/Albuterol Neb 3 ML IH ONE ×2 (15:50→16:25)
[2019-07-20 16:17] LABS: ABG Base Excess 12 mEq/L (-2 to 3); ABG HCO3 44 mEq/L (21-27); ABG Oxygen Saturation 84 % (95-98); ABG PCO2 95 mmHg (35-45); ABG PH 7.27 pH Units (7.32-7.45); ABG PO2 59 mmHg (85-104); ABG TCO2 47 mEq/L (20-26)
[2019-07-20 17:52] LABS: Basophils % 0.2 %; Eosinophils # 0.5 K/mcL (0.0-0.6); Eosinophils % 5.9 %; Hemoglobin 13.1 g/dL (11.5-15.4); Immature Granulocytes % 0.2 % (0-4); Lymphocytes # 0.7 K/mcL (0.6-4.6); Lymphocytes % 7.2 %; Mean Corpuscular HGB Conc 31.2 g/dL (31.6-35.5); Mean Corpuscular Hemoglobin 32.8 pg (28.0-33.3); Mean Corpuscular Volume 105.3 fL (83.0-100.0); Mean Platelet Volume 8.8 fL (9.4-12.4); Monocytes # 0.7 K/mcL (0.0-1.3); Monocytes % 7.5 %; Neutrophils # 7.1 K/mcL (1.6-8.9); Platelet Count 118 K/mcL (140-400); Red Blood Count 3.99 M/mcL (3.82-4.97)
[2019-07-20 18:12] LABS: Calcium 9.7 mg/dL (8.6-10.3); Potassium 4.9 mEq/L (3.5-5.1)
[2019-07-20] MEDS ORDERED: levoFLOXacin 750 MG/150 ML 750 MG/150 ML BAG IVPB ONE (18:16)
[2019-07-20 19:04] LABS: ABG Base Excess 15 mEq/L (-2 to 3); ABG HCO3 47 mEq/L (21-27); ABG Oxygen Saturation 86 % (95-98); ABG PCO2 101 mmHg (35-45); ABG PH 7.28 pH Units (7.32-7.45); ABG PO2 63 mmHg (85-104); ABG TCO2 > 50 mEq/L (20-26)
[2019-07-20] MEDS ORDERED: Naloxone 0.4 MG/ML INJ IVP PRN (19:51)
[2019-07-20] MEDS: Budesonide/Formoterol 160/4.5 1 PUFF INH IH SCH (20:31)
[2019-07-20] MEDS: Ipratropium/Albuterol Neb 3 ML IH SCH ×2 (20:31→23:59)
[2019-07-20 20:54] LABS: ABG Base Excess 13 mEq/L (-2 to 3); ABG HCO3 44 mEq/L (21-27); ABG Oxygen Saturation 92 % (95-98); ABG PCO2 89 mmHg (35-45); ABG PO2 75 mmHg (85-104); ABG TCO2 47 mEq/L (20-26); Blood Gas VT 500 cc
[2019-07-20] MEDS: Azithromycin 500 MG in 0.9 % Sodium Chloride 250 ML IVPB SCH (21:44)
[2019-07-21] MEDS: Ipratropium/Albuterol Neb 3 ML IH SCH ×5 (04:50→20:26)
[2019-07-21] MEDS: *HR* Heparin 5,000 UNIT/ML VIAL SQ SCH ×2 (05:06→17:15)
[2019-07-21] MEDS: MethylPREDNISolone 40 MG/ML VIAL IVP SCH ×2 (05:06→16:49)
[2019-07-21 05:19] LABS: ABG Base Excess 12 mEq/L (-2 to 3); ABG HCO3 43 mEq/L (21-27); ABG Oxygen Saturation 98 % (95-98); ABG PCO2 90 mmHg (35-45); ABG PH 7.28 pH Units (7.32-7.45); ABG PO2 123 mmHg (85-104); ABG TCO2 45 mEq/L (20-26); Blood Gas VT 500 cc
[2019-07-21 05:39] LABS: Calcium 9.5 mg/dL (8.6-10.3); Magnesium 1.9 mg/dL (1.6-2.6); Phosphorous 3.9 mg/dL (2.7-4.5); Potassium 5.9 mEq/L (3.5-5.1)
[2019-07-21 05:50] LABS: Basophils % 0.3 %; Eosinophils % 0.1 %; Hematocrit 40.3 % (35.3-44.9); Hemoglobin 13.2 g/dL (11.5-15.4); Lymphocytes # 0.5 K/mcL (0.6-4.6); Mean Corpuscular HGB Conc 32.8 g/dL (31.6-35.5); Mean Corpuscular Hemoglobin 32.8 pg (28.0-33.3); Mean Corpuscular Volume 100.2 fL (83.0-100.0); Mean Platelet Volume 9.7 fL (9.4-12.4); Monocytes # 0.1 K/mcL (0.0-1.3); Monocytes % 1.1 %; Neutrophils # 6.6 K/mcL (1.6-8.9); Platelet Count 104 K/mcL (140-400); Red Blood Count 4.02 M/mcL (3.82-4.97); Red Cell Distribution Width 13.7 % (11.5-14.5); Segmented Neutrophils % 90.5 %; White Blood Count 7.3 K/mcL (4.3-11.1)
[2019-07-21 06:18] LABS: Platelet Estimate Slight Decrease (Normal)
[2019-07-21] MEDS ORDERED: Dextrose Gel 15 GM/37.5 ML TUBE PO PRN ×2 (06:19)
[2019-07-21] MEDS ORDERED: D5% in Water 1,000 ML IVC PRN (06:19)
[2019-07-21] MEDS ORDERED: *HR* Dextrose 50 % in Water (Syg) 50 ML SYRINGE IVP PRN (06:19)
[2019-07-21] MEDS: Budesonide/Formoterol 160/4.5 1 PUFF INH IH SCH (07:44)
[2019-07-21] MEDS: Aspirin Enteric Coated 81 MG Tablet PO SCH (08:17)
[2019-07-21] MEDS: amLODIPine 5 MG TABLET PO SCH (08:17)
[2019-07-21] MEDS ORDERED: Perflutren Lipid Microsphere 1.3 ML in 0.9 % Sodium Chloride 8.7 ML IVP ONE (08:21)
[2019-07-21] MEDS ORDERED: Insulin LISPRO 300 UNITS/3 ML VIAL SQ ONE (08:22)
[2019-07-21] MEDS: Insulin LISPRO 300 UNITS/3 ML VIAL SQ SCH ×4 (08:26→20:07)
[2019-07-21] MEDS ORDERED: Perflutren Lipid Microsphere 2 ML VIAL ONE (08:27)
[2019-07-21 08:29] LABS: Estimated Average Glucose 154 mg/dl
[2019-07-21 11:51] LABS: ABG Base Excess 15 mEq/L (-2 to 3); ABG HCO3 44 mEq/L (21-27); ABG Oxygen Saturation 93 % (95-98); ABG PCO2 78 mmHg (35-45); ABG PH 7.36 pH Units (7.32-7.45); ABG PO2 73 mmHg (85-104); ABG TCO2 47 mEq/L (20-26); Blood Gas Modality BiLevel; Blood Gas Pressure Support 6 cm H2O; Blood Gas VT 500 cc
[2019-07-21] MEDS ORDERED: Furosemide 40 MG/4 ML VIAL IVP ONE (14:34)
[2019-07-21] MEDS ORDERED: Insulin LISPRO 300 UNITS/3 ML VIAL SQ SCH ×2 (16:30→21:00)
[2019-07-21] MEDS ORDERED: traMADol 50 MG TABLET PO PRN (16:43)
[2019-07-21] MEDS: Azithromycin 500 MG in 0.9 % Sodium Chloride 250 ML IVPB SCH (20:05)
[2019-07-21] MEDS: Gabapentin 300 MG CAPSULE PO SCH (20:06)
[2019-07-21] MEDS ORDERED: Insulin DETEMIR 100 UNIT/ML X5UNITS SQ SCH (21:00)
[2019-07-22] MEDS: Ipratropium/Albuterol Neb 3 ML IH SCH ×6 (00:43→19:48)
[2019-07-22] MEDS: Budesonide/Formoterol 160/4.5 1 PUFF INH IH SCH ×3 (00:47→19:48)
[2019-07-22 01:57] LABS: Hematocrit 39.8 % (35.3-44.9); Hemoglobin 12.8 g/dL (11.5-15.4); Immature Granulocytes % 0.4 % (0-4); Lymphocytes # 0.5 K/mcL (0.6-4.6); Lymphocytes % 4.7 %; Mean Corpuscular HGB Conc 32.2 g/dL (31.6-35.5); Mean Corpuscular Hemoglobin 33.3 pg (28.0-33.3); Mean Corpuscular Volume 103.6 fL (83.0-100.0); Monocytes # 0.1 K/mcL (0.0-1.3); Monocytes % 1.2 %; Neutrophils # 9.5 K/mcL (1.6-8.9); Platelet Count 115 K/mcL (140-400); Red Blood Count 3.84 M/mcL (3.82-4.97); Red Cell Distribution Width 13.6 % (11.5-14.5); Segmented Neutrophils % 93.7 %; White Blood Count 10.2 K/mcL (4.3-11.1)
[2019-07-22 02:05] LABS: Calcium 9.1 mg/dL (8.6-10.3); Potassium 5.3 mEq/L (3.5-5.1)
[2019-07-22] MEDS: MethylPREDNISolone 40 MG/ML VIAL IVP SCH ×2 (05:12→16:47)
[2019-07-22] MEDS: *HR* Heparin 5,000 UNIT/ML VIAL SQ SCH ×2 (05:12→16:47)
[2019-07-22] MEDS ORDERED: valACYclovir 500 MG TABLET PO SCH ×2 (06:16→09:00)
[2019-07-22] MEDS: Cholecalciferol (D-3) 1,000 UNIT (25MCG) TABLET PO SCH (08:17)
[2019-07-22] MEDS: Insulin LISPRO 300 UNITS/3 ML VIAL SQ SCH ×4 (08:17→20:27)
[2019-07-22] MEDS: amLODIPine 5 MG TABLET PO SCH (08:17)
[2019-07-22] MEDS: Aspirin Enteric Coated 81 MG Tablet PO SCH (08:17)
[2019-07-22] MEDS: Gabapentin 300 MG CAPSULE PO SCH ×3 (08:17→20:26)
[2019-07-22] MEDS: (Febuxostat [Uloric] 80 MG) PO SCH ×2 (08:32→13:11)
[2019-07-22 08:43] LABS: Albumin 3.7 g/dL (3.5-5.7); Albumin/Globulin Ratio 1.6 (1.1-2.2); Bilirubin,Direct 0.1 mg/dL (0.0-0.2); Bilirubin,Indirect 0.3 mg/dL (0.0-1.0); Bilirubin,Total 0.4 mg/dL (0.3-1.0); Globulin 2.3 g/dL (2.4-3.5)
[2019-07-22] MEDS: diazePAM 2 MG TABLET PO SCH ×2 (08:51→20:26)
[2019-07-22] MEDS ORDERED: NON-FORMULARY MEDICATION 1 EACH EACH (Losartan Potassium [Cozaar] 100 MG) PO SCH (09:00)
[2019-07-22] MEDS: valACYclovir 500 MG TABLET PO SCH (11:00)
[2019-07-22] MEDS: Insulin DETEMIR 100 UNIT/ML X5UNITS SQ SCH ×2 (13:07→20:39)
[2019-07-22] MEDS: Azithromycin 500 MG in 0.9 % Sodium Chloride 250 ML IVPB SCH (20:26)
[2019-07-23] MEDS: Ipratropium/Albuterol Neb 3 ML IH SCH ×6 (00:12→20:11)
[2019-07-23] MEDS: *HR* Heparin 5,000 UNIT/ML VIAL SQ SCH ×2 (05:10→16:08)
[2019-07-23] MEDS: MethylPREDNISolone 40 MG/ML VIAL IVP SCH (05:10)
[2019-07-23 06:36] LABS: Basophils % 0.1 %
[2019-07-23 06:37] LABS: Hematocrit 41.5 % (35.3-44.9); Hemoglobin 13.6 g/dL (11.5-15.4); Immature Granulocytes % 0.3 % (0-4); Immature Platelets 1.3 % (1.1-6.1); Lymphocytes # 0.7 K/mcL (0.6-4.6); Lymphocytes % 5.4 %; Mean Corpuscular HGB Conc 32.8 g/dL (31.6-35.5); Mean Corpuscular Hemoglobin 33.4 pg (28.0-33.3); Mean Platelet Volume 9.2 fL (9.4-12.4); Monocytes # 0.2 K/mcL (0.0-1.3); Neutrophils # 11.1 K/mcL (1.6-8.9); Red Blood Count 4.07 M/mcL (3.82-4.97); Red Cell Distribution Width 13.4 % (11.5-14.5); Segmented Neutrophils % 92.2 %
[2019-07-23 06:49] LABS: Platelet Count 93 K/mcL (140-400)
[2019-07-23 06:57] LABS: Potassium 4.8 mEq/L (3.5-5.1)
[2019-07-23] MEDS: Budesonide/Formoterol 160/4.5 1 PUFF INH IH SCH ×2 (07:55→20:10)
[2019-07-23] MEDS: diazePAM 2 MG TABLET PO SCH ×2 (08:50→19:35)
[2019-07-23] MEDS: Aspirin Enteric Coated 81 MG Tablet PO SCH (08:50)
[2019-07-23] MEDS: Gabapentin 300 MG CAPSULE PO SCH ×2 (08:50→14:41)
[2019-07-23] MEDS: Cholecalciferol (D-3) 1,000 UNIT (25MCG) TABLET PO SCH (08:50)
[2019-07-23] MEDS: amLODIPine 5 MG TABLET PO SCH (08:50)
[2019-07-23] MEDS: (Febuxostat [Uloric] 80 MG) PO SCH (08:51)
[2019-07-23] MEDS: Insulin LISPRO 300 UNITS/3 ML VIAL SQ SCH ×4 (08:52→20:43)
[2019-07-23] MEDS: Insulin DETEMIR 100 UNIT/ML X5UNITS SQ SCH ×2 (08:53→20:44)
[2019-07-23] MEDS: valACYclovir 500 MG TABLET PO SCH (12:04)
[2019-07-23] MEDS ORDERED: 0.9 % Sodium Chloride 1,000 ML IVC SCH (12:15)
[2019-07-23] MEDS: Azithromycin 250 MG TABLET PO SCH (19:35)
[2019-07-24] MEDS: Ipratropium/Albuterol Neb 3 ML IH SCH ×7 (00:53→23:00)
[2019-07-24] MEDS: *HR* Heparin 5,000 UNIT/ML VIAL SQ SCH ×2 (05:29→16:06)
[2019-07-24 06:59] LABS: Basophils % 0.1 %; Hematocrit 38.4 % (35.3-44.9); Hemoglobin 12.4 g/dL (11.5-15.4); Immature Granulocytes % 0.4 % (0-4); Lymphocytes # 0.7 K/mcL (0.6-4.6); Lymphocytes % 7.9 %; Mean Corpuscular HGB Conc 32.3 g/dL (31.6-35.5); Mean Corpuscular Hemoglobin 32.9 pg (28.0-33.3); Mean Corpuscular Volume 101.9 fL (83.0-100.0); Mean Platelet Volume 9.2 fL (9.4-12.4); Monocytes # 0.5 K/mcL (0.0-1.3); Monocytes % 5.5 %; Neutrophils # 7.9 K/mcL (1.6-8.9); Platelet Count 111 K/mcL (140-400); Red Blood Count 3.77 M/mcL (3.82-4.97); Red Cell Distribution Width 13.7 % (11.5-14.5); Segmented Neutrophils % 86.1 %; White Blood Count 9.2 K/mcL (4.3-11.1)
[2019-07-24 07:10] LABS: Calcium 8.5 mg/dL (8.6-10.3); Potassium 4.3 mEq/L (3.5-5.1)
[2019-07-24] MEDS: Budesonide/Formoterol 160/4.5 1 PUFF INH IH SCH ×2 (07:40→20:29)
[2019-07-24] MEDS: Cholecalciferol (D-3) 1,000 UNIT (25MCG) TABLET PO SCH (08:40)
[2019-07-24] MEDS: amLODIPine 5 MG TABLET PO SCH (08:40)
[2019-07-24] MEDS: predniSONE 20 MG TABLET PO SCH (08:40)
[2019-07-24] MEDS: valACYclovir 500 MG TABLET PO SCH (08:40)
[2019-07-24] MEDS: diazePAM 2 MG TABLET PO SCH ×2 (08:40→20:33)
[2019-07-24] MEDS: Azithromycin 250 MG TABLET PO SCH (08:41)
[2019-07-24] MEDS: Insulin DETEMIR 100 UNIT/ML X5UNITS SQ SCH ×2 (08:41→21:45)
[2019-07-24] MEDS: Gabapentin 300 MG CAPSULE PO SCH (08:41)
[2019-07-24] MEDS: Insulin LISPRO 300 UNITS/3 ML VIAL SQ SCH ×4 (08:41→20:34)
[2019-07-24] MEDS: Aspirin Enteric Coated 81 MG Tablet PO SCH (08:41)
[2019-07-24] MEDS: (Febuxostat [Uloric] 80 MG) PO SCH (08:48)
[2019-07-24] MEDS ORDERED: Lidocaine OINT 35.44 GM TUBE TP PRN (09:57)
[2019-07-25 02:11] LABS: Basophils % 0.1 %; Mean Platelet Volume 9.5 fL (9.4-12.4); Red Cell Distribution Width 13.4 % (11.5-14.5)
[2019-07-25 02:13] LABS: Hematocrit 37.4 % (35.3-44.9); Hemoglobin 12.2 g/dL (11.5-15.4); Immature Granulocytes % 0.5 % (0-4); Immature Platelets 1.8 % (1.1-6.1); Lymphocytes # 0.7 K/mcL (0.6-4.6); Lymphocytes % 8.7 %; Mean Corpuscular HGB Conc 32.6 g/dL (31.6-35.5); Mean Corpuscular Hemoglobin 32.6 pg (28.0-33.3); Monocytes # 0.4 K/mcL (0.0-1.3); Monocytes % 5.2 %; Platelet Count 100 K/mcL (140-400); Red Blood Count 3.74 M/mcL (3.82-4.97); Segmented Neutrophils % 85.5 %; White Blood Count 8.2 K/mcL (4.3-11.1)
[2019-07-25 02:25] LABS: Calcium 8.8 mg/dL (8.6-10.3); Potassium 4.2 mEq/L (3.5-5.1)
[2019-07-25] MEDS: Ipratropium/Albuterol Neb 3 ML IH SCH ×6 (03:48→23:09)
[2019-07-25] MEDS: *HR* Heparin 5,000 UNIT/ML VIAL SQ SCH ×2 (05:40→17:06)
[2019-07-25] MEDS: Budesonide/Formoterol 160/4.5 1 PUFF INH IH SCH ×2 (07:42→20:43)
[2019-07-25] MEDS: Insulin LISPRO 300 UNITS/3 ML VIAL SQ SCH ×4 (08:41→21:18)
[2019-07-25] MEDS: predniSONE 20 MG TABLET PO SCH (08:42)
[2019-07-25] MEDS: diazePAM 2 MG TABLET PO SCH ×2 (08:42→21:34)
[2019-07-25] MEDS: Gabapentin 300 MG CAPSULE PO SCH (08:42)
[2019-07-25] MEDS: Cholecalciferol (D-3) 1,000 UNIT (25MCG) TABLET PO SCH (08:42)
[2019-07-25] MEDS: Azithromycin 250 MG TABLET PO SCH (08:43)
[2019-07-25] MEDS: amLODIPine 5 MG TABLET PO SCH (08:43)
[2019-07-25] MEDS: valACYclovir 500 MG TABLET PO SCH (08:43)
[2019-07-25] MEDS: Aspirin Enteric Coated 81 MG Tablet PO SCH (08:45)
[2019-07-25] MEDS: (Febuxostat [Uloric] 80 MG) PO SCH (08:57)
[2019-07-25] MEDS: Insulin DETEMIR 100 UNIT/ML X5UNITS SQ SCH ×2 (08:57→21:34)
[2019-07-25] MEDS ORDERED: Furosemide 40 MG TABLET PO SCH (09:00)
[2019-07-25] MEDS: Nystatin Ointment 15 GM TUBE TP SCH (21:35)
[2019-07-26] MEDS: Ipratropium/Albuterol Neb 3 ML IH SCH ×3 (04:12→11:42)
[2019-07-26 04:53] LABS: Eosinophils % 0.1 %; Hemoglobin 12.3 g/dL (11.5-15.4); Immature Granulocytes % 0.2 % (0-4); Lymphocytes # 0.7 K/mcL (0.6-4.6); Mean Corpuscular HGB Conc 32.4 g/dL (31.6-35.5); Mean Corpuscular Hemoglobin 32.5 pg (28.0-33.3); Mean Corpuscular Volume 100.5 fL (83.0-100.0); Mean Platelet Volume 9.5 fL (9.4-12.4); Monocytes # 0.4 K/mcL (0.0-1.3); Monocytes % 4.6 %; Neutrophils # 7.1 K/mcL (1.6-8.9); Platelet Count 108 K/mcL (140-400); Red Blood Count 3.78 M/mcL (3.82-4.97); Red Cell Distribution Width 13.3 % (11.5-14.5); Segmented Neutrophils % 86.1 %; White Blood Count 8.2 K/mcL (4.3-11.1)
[2019-07-26 05:15] LABS: Calcium 8.9 mg/dL (8.6-10.3); Potassium 4.3 mEq/L (3.5-5.1)
[2019-07-26] MEDS: *HR* Heparin 5,000 UNIT/ML VIAL SQ SCH (05:37)
[2019-07-26] MEDS: Insulin LISPRO 300 UNITS/3 ML VIAL SQ SCH ×2 (07:21→11:33)
[2019-07-26] MEDS: Budesonide/Formoterol 160/4.5 1 PUFF INH IH SCH (07:42)
[2019-07-26] MEDS: Gabapentin 300 MG CAPSULE PO SCH (08:58)
[2019-07-26] MEDS: valACYclovir 500 MG TABLET PO SCH (08:58)
[2019-07-26] MEDS: amLODIPine 5 MG TABLET PO SCH (08:58)
[2019-07-26] MEDS: Aspirin Enteric Coated 81 MG Tablet PO SCH (08:58)
[2019-07-26] MEDS: Cholecalciferol (D-3) 1,000 UNIT (25MCG) TABLET PO SCH (08:59)
[2019-07-26] MEDS: diazePAM 2 MG TABLET PO SCH (08:59)
[2019-07-26] MEDS: Insulin DETEMIR 100 UNIT/ML X5UNITS SQ SCH (08:59)
[2019-07-26] MEDS ORDERED: Furosemide 40 MG TABLET PO SCH (09:00)
[2019-07-26] MEDS ORDERED: predniSONE 20 MG TABLET PO SCH (09:00)
[2019-07-26] MEDS: (Febuxostat [Uloric] 80 MG) PO SCH (09:00)
[2019-07-26] MEDS: Nystatin Ointment 15 GM TUBE TP SCH (09:18)
[2019-07-26 11:00] VITALS: BP 136/73
== END 2019-07-26 15:21 | disposition home health service (06) | DRG 190 ==
LOC: EMEROOARM 15:36 → SUATTDRO 18:41 → 2NENU 18:41 → 2NNU 18:48 → 2NENU 07-23 06:14
PROVIDERS: ADMIT Student in an Organized Health Care Education/Training Program; ATTEND Internal Medicine

== ENCOUNTER 2019-11-22 20:16 | Inpatient (IN) ==
[2019-11-22] MEDS ORDERED: Ipratropium/Albuterol Neb 3 ML IH ONE (20:41)
[2019-11-22] MEDS ORDERED: methylPREDNISolone 125 MG/2 ML VIAL IVP ONE (20:42)
[2019-11-22 21:19] LABS: VBG HCO3 43 mEq/L (21-27); VBG PCO2 70 mmHg (41-51); VBG PO2 116 mmHg (25-50)
[2019-11-22 21:23] LABS: Basophils % 0.3 %; Eosinophils # 0.2 K/mcL (0.0-0.6); Eosinophils % 2.9 %; Hematocrit 41.5 % (35.3-44.9); Immature Granulocytes % 0.4 % (0-4); Lymphocytes # 0.5 K/mcL (0.6-4.6); Lymphocytes % 6.2 %; Mean Corpuscular HGB Conc 31.3 g/dL (31.6-35.5); Mean Corpuscular Hemoglobin 33.6 pg (28.0-33.3); Mean Corpuscular Volume 107.2 fL (83.0-100.0); Mean Platelet Volume 8.9 fL (9.4-12.4); Monocytes # 0.3 K/mcL (0.0-1.3); Monocytes % 3.5 %; Neutrophils # 6.9 K/mcL (1.6-8.9); Platelet Count 107 K/mcL (140-400); Red Blood Count 3.87 M/mcL (3.82-4.97); Red Cell Distribution Width 13.4 % (11.5-14.5); Segmented Neutrophils % 86.7 %
[2019-11-22 21:24] LABS: White Blood Count 7.9 K/mcL (4.3-11.1)
[2019-11-22 21:33] LABS: Alanine Aminotransferase 11 Units/L (7-52); Albumin 4.3 g/dL (3.5-5.7); Alkaline Phosphatase 59 Units/L (34-104); Aspartate Amino Transferase 15 Units/L (13-39); BUN/Creatinine Ratio 26 (6-26); Bilirubin,Total 0.6 mg/dL (0.3-1.0); Blood Urea Nitrogen 60 mg/dL (8-23); Calcium 10.3 mg/dL (8.6-10.3); Carbon Dioxide 45 mEq/L (23-29); Chloride 95 mEq/L (98-107); Globulin 2.2 g/dL (2.4-3.5); Glucose 192 mg/dL (70-105); Osmolality,Calculated 318 (280-300); Potassium 4.7 mEq/L (3.5-5.1); Sodium 143 mEq/L (136-145); Total Protein 6.5 g/dL (6.4-8.9); Troponin I < 0.03 ng/mL (< 0.04); eGFR For African Americans 25 (> 60); eGFR For Non-African Americans 21 (> 60)
[2019-11-22] MEDS ORDERED: Furosemide 40 MG/4 ML VIAL IVP ONE (22:19)
[2019-11-22] MEDS ORDERED: Naloxone 0.4 MG/ML INJ IVP PRN (23:16)
[2019-11-23] MEDS ORDERED: *HR* Dextrose 50 % in Water (Syg) 50 ML SYRINGE IVP PRN ×2 (00:23→16:52)
[2019-11-23] MEDS ORDERED: D5% in Water 1,000 ML IVC PRN ×2 (00:23→16:52)
[2019-11-23] MEDS ORDERED: Dextrose Gel 15 GM/37.5 ML TUBE PO PRN ×4 (00:23→16:52)
[2019-11-23 01:13] LABS: Bilirubin,Urine Negative (Negative); Blood,Urine Negative (Negative); Clarity,Urine Clear (Clear); Color,Urine Yellow (Yellow); Glucose,Urine (UA) Normal (Normal); Ketones,Urine Negative (Negative); Leukocyte Esterase,Urine Negative (Negative); Nitrite,Urine Negative (Negative); Protein,Urine Trace mg/dL (Neg-Trace); Specific Gravity,Urine 1.013 (1.010-1.025); Urobilinogen,Urine Normal (Normal)
[2019-11-23] MEDS ORDERED: Ipratropium/Albuterol Neb 3 ML IH PRN (01:18)
[2019-11-23 02:32] LABS: Eosinophils % 0.2 %; Hemoglobin 12.2 g/dL (11.5-15.4); Lymphocytes % 4.6 %; Mean Platelet Volume 8.9 fL (9.4-12.4)
[2019-11-23 02:34] LABS: Basophils % 0.1 %; Hematocrit 39.2 % (35.3-44.9); Immature Granulocytes % 0.9 % (0-4); Immature Platelets 1.4 % (1.1-6.1); Lymphocytes # 0.4 K/mcL (0.6-4.6); Mean Corpuscular HGB Conc 31.1 g/dL (31.6-35.5); Mean Corpuscular Hemoglobin 33.5 pg (28.0-33.3); Mean Corpuscular Volume 107.7 fL (83.0-100.0); Monocytes # 0.1 K/mcL (0.0-1.3); Monocytes % 0.6 %; Neutrophils # 8.7 K/mcL (1.6-8.9); Platelet Count 112 K/mcL (140-400); Red Blood Count 3.64 M/mcL (3.82-4.97); Red Cell Distribution Width 13.2 % (11.5-14.5); Segmented Neutrophils % 93.6 %; White Blood Count 9.3 K/mcL (4.3-11.1)
[2019-11-23 06:10] LABS: ABG Base Excess 22 mEq/L (-2 to 3); ABG HCO3 54 mEq/L (21-27); ABG Oxygen Saturation 92 % (95-98); ABG PCO2 109 mmHg (35-45); ABG PO2 76 mmHg (85-104); ABG TCO2 > 50 mEq/L (20-26)
[2019-11-23] MEDS: *HR* Heparin 5,000 UNIT/ML VIAL SQ SCH ×3 (06:25→20:26)
[2019-11-23 08:33] LABS: ABG Base Excess 19 mEq/L (-2 to 3); ABG HCO3 51 mEq/L (21-27); ABG Oxygen Saturation 97 % (95-98); ABG PCO2 101 mmHg (35-45); ABG PH 7.31 pH Units (7.32-7.45); ABG PO2 110 mmHg (85-104); ABG TCO2 > 50 mEq/L (20-26)
[2019-11-23] MEDS: Furosemide 40 MG/4 ML VIAL IVP SCH ×2 (09:02→20:26)
[2019-11-23] MEDS: MethylPREDNISolone 40 MG/ML VIAL IVP SCH ×2 (09:02→16:40)
[2019-11-23] MEDS: Insulin LISPRO 300 UNITS/3 ML VIAL SQ SCH ×4 (09:02→18:59)
[2019-11-23 10:34] LABS: Adenovirus Not Detected (Not Detect); Bordetella Pertussis Not Detected (Not Detect); Chlamydophila pneumoniae Not Detected (Not Detect); Coronavirus 229E Not Detected (Not Detect); Coronavirus HKU1 Not Detected (Not Detect); Coronavirus NL63 Not Detected (Not Detect); Coronavirus OC43 Not Detected (Not Detect); Human Metapneumovirus Not Detected (Not Detect); Human Rhinovirus/Enterovirus Not Detected (Not Detect); Influenza A Subtype 2009 H1 Not Detected (Not Detect); Influenza B Not Detected (Not Detect); Mycoplasma pneumoniae Not Detected (Not Detect); Parainfluenza Virus 1 Not Detected (Not Detect); Parainfluenza Virus 2 Not Detected (Not Detect); Parainfluenza Virus 3 Not Detected (Not Detect); Parainfluenza Virus 4 Not Detected (Not Detect); Respiratory Syncytial Virus Not Detected (Not Detect)
[2019-11-23] MEDS: amLODIPine 5 MG TABLET PO SCH (18:58)
[2019-11-23] MEDS: carvediloL 6.25 MG TABLET PO SCH (18:58)
[2019-11-23] MEDS: diazePAM 2 MG TABLET PO SCH (20:26)
[2019-11-23] MEDS: Gabapentin 300 MG CAPSULE PO SCH (20:26)
[2019-11-23] MEDS: Insulin DETEMIR 100 UNIT/ML X5UNITS SQ SCH (20:35)
[2019-11-24 03:55] LABS: VBG HCO3 47 mEq/L (21-27); VBG PCO2 74 mmHg (41-51); VBG PH 7.41 pH Units (7.32-7.42); VBG PO2 193 mmHg (25-50)
[2019-11-24 03:57] LABS: Basophils % 0.1 %; Hematocrit 36.6 % (35.3-44.9); Hemoglobin 11.7 g/dL (11.5-15.4); Immature Granulocytes % 0.3 % (0-4); Lymphocytes # 0.5 K/mcL (0.6-4.6); Lymphocytes % 5.1 %; Mean Corpuscular Hemoglobin 34.2 pg (28.0-33.3); Mean Platelet Volume 9.2 fL (9.4-12.4); Monocytes # 0.3 K/mcL (0.0-1.3); Monocytes % 2.8 %; Neutrophils # 9.5 K/mcL (1.6-8.9); Platelet Count 105 K/mcL (140-400); Red Blood Count 3.42 M/mcL (3.82-4.97); Red Cell Distribution Width 13.2 % (11.5-14.5); Segmented Neutrophils % 91.7 %; White Blood Count 10.4 K/mcL (4.3-11.1)
[2019-11-24 04:17] LABS: Calcium 9.8 mg/dL (8.6-10.3); Potassium 4.8 mEq/L (3.5-5.1)
[2019-11-24] MEDS: *HR* Heparin 5,000 UNIT/ML VIAL SQ SCH ×3 (05:33→20:07)
[2019-11-24] MEDS: predniSONE 20 MG TABLET PO SCH (08:08)
[2019-11-24] MEDS: Gabapentin 300 MG CAPSULE PO SCH ×3 (08:08→20:07)
[2019-11-24] MEDS: amLODIPine 5 MG TABLET PO SCH (08:08)
[2019-11-24] MEDS: Furosemide 40 MG/4 ML VIAL IVP SCH (08:08)
[2019-11-24] MEDS: Cholecalciferol (D-3) 1,000 UNIT (25MCG) TABLET PO SCH (08:08)
[2019-11-24] MEDS: Multivit/Ca/Min/Fe/FA 1 TAB TABLET PO SCH (08:08)
[2019-11-24] MEDS: Aspirin Enteric Coated 81 MG Tablet PO SCH (08:08)
[2019-11-24] MEDS: diazePAM 2 MG TABLET PO SCH (08:08)
[2019-11-24] MEDS: Insulin LISPRO 300 UNITS/3 ML VIAL SQ SCH ×3 (08:08→16:22)
[2019-11-24] MEDS: carvediloL 6.25 MG TABLET PO SCH ×2 (08:08→16:22)
[2019-11-24 08:21] LABS: ABG Base Excess 23 mEq/L (-2 to 3); ABG HCO3 54 mEq/L (21-27); ABG Oxygen Saturation 94 % (95-98); ABG PCO2 84 mmHg (35-45); ABG PH 7.41 pH Units (7.32-7.45); ABG PO2 75 mmHg (85-104); ABG TCO2 > 50 mEq/L (20-26)
[2019-11-24] MEDS ORDERED: NON-FORMULARY MEDICATION 1 EACH EACH (Ubidecarenone [Co Q-10] 100 MG) PO SCH (09:00)
[2019-11-24] MEDS: Ipratropium/Albuterol Neb 3 ML IH SCH ×3 (11:01→22:00)
[2019-11-24] MEDS ORDERED: diazePAM 2 MG TABLET PO PRN (15:55)
[2019-11-24] MEDS: Furosemide 40 MG TABLET PO SCH (16:22)
[2019-11-24] MEDS: Insulin DETEMIR 100 UNIT/ML X5UNITS SQ SCH (20:07)
[2019-11-25] MEDS: Ipratropium/Albuterol Neb 3 ML IH SCH ×2 (03:33→10:28)
[2019-11-25 04:47] LABS: Hemoglobin 11.2 g/dL (11.5-15.4); Mean Corpuscular Volume 107.6 fL (83.0-100.0); Mean Platelet Volume 9.4 fL (9.4-12.4); Red Cell Distribution Width 13.2 % (11.5-14.5)
[2019-11-25 04:49] LABS: Basophils % 0.1 %; Hematocrit 35.4 % (35.3-44.9); Immature Granulocytes % 0.4 % (0-4); Immature Platelets 0.9 % (1.1-6.1); Lymphocytes # 0.8 K/mcL (0.6-4.6); Mean Corpuscular HGB Conc 31.6 g/dL (31.6-35.5); Monocytes # 0.5 K/mcL (0.0-1.3); Monocytes % 5.6 %; Platelet Count 101 K/mcL (140-400); Red Blood Count 3.29 M/mcL (3.82-4.97); Segmented Neutrophils % 83.9 %; White Blood Count 8.3 K/mcL (4.3-11.1)
[2019-11-25 05:07] LABS: Calcium 9.6 mg/dL (8.6-10.3); Potassium 4.6 mEq/L (3.5-5.1)
[2019-11-25 05:14] LABS: Platelet Estimate Decreased (Normal)
[2019-11-25] MEDS: *HR* Heparin 5,000 UNIT/ML VIAL SQ SCH ×2 (05:30→14:58)
[2019-11-25] MEDS: predniSONE 20 MG TABLET PO SCH (07:53)
[2019-11-25] MEDS: Multivit/Ca/Min/Fe/FA 1 TAB TABLET PO SCH (07:53)
[2019-11-25] MEDS: Aspirin Enteric Coated 81 MG Tablet PO SCH (07:53)
[2019-11-25] MEDS: Gabapentin 300 MG CAPSULE PO SCH ×2 (07:53→14:58)
[2019-11-25] MEDS: amLODIPine 5 MG TABLET PO SCH (07:53)
[2019-11-25] MEDS: Furosemide 40 MG TABLET PO SCH (07:53)
[2019-11-25] MEDS: Cholecalciferol (D-3) 1,000 UNIT (25MCG) TABLET PO SCH (07:53)
[2019-11-25] MEDS: carvediloL 6.25 MG TABLET PO SCH (07:53)
[2019-11-25] MEDS: Insulin LISPRO 300 UNITS/3 ML VIAL SQ SCH ×2 (07:56→11:51)
[2019-11-25 11:09] VITALS: BP 122/58
== END 2019-11-25 15:44 | disposition home health service (06) | DRG 291 ==
LOC: CDU 20:16 → EMEROOARM 20:16 → SUATTDRO 23:04 → CDU 23:45 → SUATTDRO 11-23 10:58 → 2ANU 11-23 16:21
PROVIDERS: ADMIT Internal Medicine; ATTEND Internal Medicine

== ENCOUNTER 2020-06-27 16:51 | Inpatient (IN) ==
[2020-06-27] MEDS ORDERED: methylPREDNISolone 125 MG/2 ML VIAL IVP ONE (17:10)
[2020-06-27] MEDS ORDERED: Ipratropium/Albuterol Neb 3 ML IH ONE (17:10)
[2020-06-27 17:46] LABS: Basophils % 0.2 %; Eosinophils # 0.4 K/mcL (0.0-0.6); Eosinophils % 3.4 %; Hematocrit 40.1 % (35.3-44.9); Hemoglobin 12.5 g/dL (11.5-15.4); Immature Granulocytes % 0.2 % (0-4); Lymphocytes # 0.8 K/mcL (0.6-4.6); Lymphocytes % 5.8 %; Mean Corpuscular HGB Conc 31.2 g/dL (31.6-35.5); Mean Corpuscular Volume 105.8 fL (83.0-100.0); Monocytes # 0.6 K/mcL (0.0-1.3); Monocytes % 4.7 %; Platelet Count 141 K/mcL (140-400); Red Blood Count 3.79 M/mcL (3.82-4.97); Red Cell Distribution Width 13.4 % (11.5-14.5); Segmented Neutrophils % 85.7 %; White Blood Count 12.9 K/mcL (4.3-11.1)
[2020-06-27 17:50] LABS: BUN/Creatinine Ratio 26 (6-26); Blood Urea Nitrogen 62 mg/dL (8-23); Calcium 9.9 mg/dL (8.6-10.3); Carbon Dioxide 38 mEq/L (23-29); Chloride 98 mEq/L (98-107); Glucose 117 mg/dL (70-105); Osmolality,Calculated 313 (280-300); Sodium 142 mEq/L (136-145); eGFR For African Americans 24 (> 60); eGFR For Non-African Americans 20 (> 60)
[2020-06-27 17:51] LABS: Troponin I < 0.03 ng/mL (< 0.04)
[2020-06-27] MEDS ORDERED: Furosemide 40 MG in 0.9 % Sodium Chloride 50 ML IVPB ONE (19:02)
[2020-06-27] MEDS ORDERED: Furosemide 40 MG/4 ML VIAL IV ONE (19:10)
[2020-06-27 19:37] LABS: Adenovirus Not Detected (Not Detect); Coronavirus 229E Not Detected (Not Detect); Coronavirus HKU1 Not Detected (Not Detect); Coronavirus NL63 Not Detected (Not Detect); Coronavirus OC43 Not Detected (Not Detect)
[2020-06-27 19:38] LABS: Bordetella Pertussis Not Detected (Not Detect); Chlamydophila pneumoniae Not Detected (Not Detect); Human Metapneumovirus Not Detected (Not Detect); Human Rhinovirus/Enterovirus Not Detected (Not Detect); Influenza A Subtype 2009 H1 Not Detected (Not Detect); Influenza B Not Detected (Not Detect); Mycoplasma pneumoniae Not Detected (Not Detect); Parainfluenza Virus 1 Not Detected (Not Detect); Parainfluenza Virus 2 Not Detected (Not Detect); Parainfluenza Virus 3 Not Detected (Not Detect); Parainfluenza Virus 4 Not Detected (Not Detect); Respiratory Syncytial Virus Not Detected (Not Detect); SARS-CoV-2 Not Detected (Not Detect)
[2020-06-27] MEDS ORDERED: Ondansetron ODT 4 MG TAB.RAPDIS SL PRN (23:41)
[2020-06-27] MEDS ORDERED: Naloxone 0.4 MG/ML INJ IVP PRN (23:41)
[2020-06-28] MEDS ORDERED: D5% in Water 1,000 ML IVC PRN (00:31)
[2020-06-28] MEDS ORDERED: *HR* Dextrose 50 % in Water (Vial) 50 ML VIAL IVP PRN (00:31)
[2020-06-28] MEDS ORDERED: Dextrose Gel 15 GM/37.5 ML TUBE PO PRN ×2 (00:31)
[2020-06-28] MEDS ORDERED: *HR* Promethazine 25 MG/ML VIAL IVP PRN (02:42)
[2020-06-28 03:12] LABS: Basophils % 0.1 %; Eosinophils % 0.1 %; Hematocrit 37.9 % (35.3-44.9); Hemoglobin 12.3 g/dL (11.5-15.4); Immature Granulocytes % 0.4 % (0-4); Lymphocytes # 0.4 K/mcL (0.6-4.6); Lymphocytes % 3.8 %; Mean Corpuscular HGB Conc 32.5 g/dL (31.6-35.5); Mean Corpuscular Volume 104.7 fL (83.0-100.0); Mean Platelet Volume 8.8 fL (9.4-12.4); Monocytes % 0.4 %; Neutrophils # 9.9 K/mcL (1.6-8.9); Platelet Count 113 K/mcL (140-400); Red Blood Count 3.62 M/mcL (3.82-4.97); Red Cell Distribution Width 13.2 % (11.5-14.5); Segmented Neutrophils % 95.2 %; White Blood Count 10.4 K/mcL (4.3-11.1)
[2020-06-28 03:34] LABS: Magnesium 1.9 mg/dL (1.6-2.6); Phosphorous 4.6 mg/dL (2.7-4.5); Potassium 4.7 mEq/L (3.5-5.1)
[2020-06-28] MEDS: *HR* Heparin 5,000 UNIT/ML VIAL SQ SCH ×3 (05:23→21:39)
[2020-06-28] MEDS: Insulin LISPRO 300 UNITS/3 ML VIAL SQ SCH ×2 (06:05→11:41)
[2020-06-28] MEDS ORDERED: diazePAM 2 MG TABLET PO PRN (07:40)
[2020-06-28] MEDS: Budesonide/Formoterol 80/4.5 1 PUFF INH IH SCH ×2 (07:53→21:33)
[2020-06-28] MEDS ORDERED: carvediloL 6.25 MG TABLET PO SCH (08:00)
[2020-06-28 08:35] LABS: Estimated Average Glucose 120 mg/dl
[2020-06-28] MEDS: amLODIPine 5 MG TABLET PO SCH (09:12)
[2020-06-28] MEDS: Aspirin Enteric Coated 81 MG Tablet PO SCH (09:12)
[2020-06-28] MEDS: Furosemide 40 MG/4 ML VIAL IVP SCH ×2 (09:12→16:42)
[2020-06-28] MEDS: Cholecalciferol (D-3) 1,000 UNIT (25MCG) TABLET PO SCH (09:12)
[2020-06-28] MEDS: Gabapentin 300 MG CAPSULE PO SCH ×3 (09:12→19:41)
[2020-06-28] MEDS ORDERED: Ipratropium/Albuterol Neb 3 ML IH PRN (12:29)
[2020-06-28] MEDS: carvediloL 6.25 MG TABLET PO SCH (16:42)
[2020-06-29 04:40] LABS: Eosinophils % 0.1 %; Hematocrit 35.8 % (35.3-44.9); Hemoglobin 11.2 g/dL (11.5-15.4); Immature Granulocytes % 0.2 % (0-4); Lymphocytes # 0.6 K/mcL (0.6-4.6); Lymphocytes % 5.8 %; Mean Corpuscular HGB Conc 31.3 g/dL (31.6-35.5); Mean Corpuscular Hemoglobin 33.8 pg (28.0-33.3); Mean Corpuscular Volume 108.2 fL (83.0-100.0); Mean Platelet Volume 8.9 fL (9.4-12.4); Monocytes # 0.5 K/mcL (0.0-1.3); Monocytes % 4.5 %; Neutrophils # 9.7 K/mcL (1.6-8.9); Platelet Count 114 K/mcL (140-400); Red Blood Count 3.31 M/mcL (3.82-4.97); Red Cell Distribution Width 13.3 % (11.5-14.5); Segmented Neutrophils % 89.4 %; White Blood Count 10.9 K/mcL (4.3-11.1)
[2020-06-29 05:02] LABS: Calcium 9.6 mg/dL (8.6-10.3); Magnesium 2.1 mg/dL (1.6-2.6); Potassium 4.8 mEq/L (3.5-5.1)
[2020-06-29] MEDS: *HR* Heparin 5,000 UNIT/ML VIAL SQ SCH ×2 (05:17→13:56)
[2020-06-29] MEDS: Gabapentin 300 MG CAPSULE PO SCH (07:52)
[2020-06-29] MEDS: Aspirin Enteric Coated 81 MG Tablet PO SCH (07:52)
[2020-06-29] MEDS: carvediloL 6.25 MG TABLET PO SCH (07:52)
[2020-06-29] MEDS: Cholecalciferol (D-3) 1,000 UNIT (25MCG) TABLET PO SCH (07:52)
[2020-06-29] MEDS: amLODIPine 5 MG TABLET PO SCH (07:52)
[2020-06-29] MEDS: Furosemide 40 MG/4 ML VIAL IVP SCH (07:52)
[2020-06-29] MEDS: Budesonide/Formoterol 80/4.5 1 PUFF INH IH SCH (10:22)
[2020-06-29 11:15] VITALS: BP 128/65
== END 2020-06-29 15:51 | disposition home health service (06) | DRG 291 ==
LOC: 2ANU 16:51 → EMEROOARM 16:51 → SUATTDRO 20:38 → 2ANU 21:48
PROVIDERS: ADMIT Student in an Organized Health Care Education/Training Program; ATTEND Internal Medicine

== ENCOUNTER 2020-08-06 02:30 | Inpatient (IN) ==
[2020-08-06 02:53] LABS: Basophils % 0.3 %; Eosinophils # 0.4 K/mcL (0.0-0.6); Hematocrit 36.2 % (35.3-44.9); Hemoglobin 10.9 g/dL (11.5-15.4); Immature Granulocytes % 0.5 % (0-4); Lymphocytes # 0.6 K/mcL (0.6-4.6); Lymphocytes % 4.5 %; Mean Corpuscular HGB Conc 30.1 g/dL (31.6-35.5); Mean Corpuscular Hemoglobin 32.3 pg (28.0-33.3); Mean Corpuscular Volume 107.4 fL (83.0-100.0); Mean Platelet Volume 8.9 fL (9.4-12.4); Monocytes # 0.6 K/mcL (0.0-1.3); Monocytes % 4.1 %; Neutrophils # 11.8 K/mcL (1.6-8.9); Platelet Count 151 K/mcL (140-400); Red Blood Count 3.37 M/mcL (3.82-4.97); Red Cell Distribution Width 13.2 % (11.5-14.5); Segmented Neutrophils % 87.6 %; White Blood Count 13.5 K/mcL (4.3-11.1)
[2020-08-06 02:56] LABS: VBG Ionized Calcium 1.15 mmol/L (1.15-1.35)
[2020-08-06 02:57] LABS: Prothrombin Time 11.4 Seconds (9.4-12.1)
[2020-08-06 03:26] LABS: Alanine Aminotransferase 10 Units/L (7-52); Albumin 4.2 g/dL (3.5-5.7); Albumin/Globulin Ratio 1.7 (1.1-2.2); Alkaline Phosphatase 74 Units/L (34-104); Aspartate Amino Transferase 14 Units/L (13-39); BUN/Creatinine Ratio 25 (6-26); Bilirubin,Total 0.6 mg/dL (0.3-1.0); Blood Urea Nitrogen 64 mg/dL (8-23); Calcium 9.4 mg/dL (8.6-10.3); Carbon Dioxide 41 mEq/L (23-29); Chloride 95 mEq/L (98-107); Globulin 2.5 g/dL (2.4-3.5); Glucose 207 mg/dL (70-105); Magnesium 1.8 mg/dL (1.6-2.6); Osmolality,Calculated 318 (280-300); Phosphorous 5.5 mg/dL (2.7-4.5); Potassium 4.2 mEq/L (3.5-5.1); Sodium 142 mEq/L (136-145); Total Protein 6.7 g/dL (6.4-8.9); Troponin I < 0.03 ng/mL (< 0.04); eGFR For African Americans 22 (> 60); eGFR For Non-African Americans 18 (> 60)
[2020-08-06 03:44] LABS: Thyroid Stimulating Hormone 3.497 mcIU/mL (0.340-5.600)
[2020-08-06 04:08] LABS: Bacteria,Urine Few per hpf (None-Few); Bilirubin,Urine Negative (Negative); Blood,Urine Negative (Negative); Clarity,Urine Turbid (Clear); Color,Urine Yellow (Yellow); Glucose,Urine (UA) Normal (Normal); Hyaline Casts,Urine Few per lpf (None Seen); Ketones,Urine Negative (Negative); Leukocyte Esterase,Urine Large (Negative); Mucus,Urine Few per lpf (None-Few); Nitrite,Urine Negative (Negative); PH,Urine 5.5 pH Units (5.0-8.0); Protein,Urine Trace mg/dL (Neg-Trace); Specific Gravity,Urine 1.015 (1.010-1.025); Squamous Epithelial Cell,Urine Few per hpf (None-Few); Urobilinogen,Urine Normal (Normal); WBC,Urine TNTC per hpf (0-3)
[2020-08-06] MEDS ORDERED: cefTRIAXone 1,000 MG in Water for inj. (sterile) 10 ML IVP ONE ×2 (04:22→06:00)
[2020-08-06] MEDS ORDERED: Azithromycin 500 MG in 0.9 % Sodium Chloride 250 ML IVPB ONE (04:49)
[2020-08-06] MEDS ORDERED: Acetaminophen 325 MG TABLET PO PRN (05:23)
[2020-08-06] MEDS ORDERED: Ondansetron ODT 4 MG TAB.RAPDIS SL PRN (05:23)
[2020-08-06] MEDS ORDERED: Naloxone 0.4 MG/ML INJ IVP PRN (05:23)
[2020-08-06] MEDS ORDERED: methylPREDNISolone 125 MG/2 ML VIAL IVP ONE (06:22)
[2020-08-06] MEDS: *HR* Heparin 5,000 UNIT/ML VIAL SQ SCH ×3 (06:40→21:25)
[2020-08-06 06:53] LABS: VBG HCO3 42 mEq/L (21-27); VBG PCO2 107 mmHg (41-51); VBG PO2 103 mmHg (25-50)
[2020-08-06] MEDS: Ipratropium/Albuterol Neb 3 ML IH SCH ×4 (08:11→20:26)
[2020-08-06 09:27] LABS: VBG HCO3 41 mEq/L (21-27); VBG PCO2 94 mmHg (41-51); VBG PH 7.25 pH Units (7.32-7.42); VBG PO2 77 mmHg (25-50)
[2020-08-06] MEDS ORDERED: diazePAM 2 MG TABLET PO PRN (17:34)
[2020-08-06] MEDS: Gabapentin 300 MG CAPSULE PO SCH (20:12)
[2020-08-06] MEDS: Bumetanide 1 MG TABLET PO SCH (20:12)
[2020-08-06] MEDS: carvediloL 6.25 MG TABLET PO SCH (20:12)
[2020-08-06] MEDS: Budesonide/Formoterol 80/4.5 1 PUFF INH IH SCH (20:26)
[2020-08-07] MEDS: Ipratropium/Albuterol Neb 3 ML IH SCH ×6 (00:11→20:11)
[2020-08-07] MEDS: *HR* Heparin 5,000 UNIT/ML VIAL SQ SCH ×3 (05:27→23:51)
[2020-08-07 05:28] LABS: VBG HCO3 39 mEq/L (21-27); VBG PCO2 45 mmHg (41-51); VBG PH 7.54 pH Units (7.32-7.42); VBG PO2 147 mmHg (25-50)
[2020-08-07 05:30] LABS: Calcium 9.6 mg/dL (8.6-10.3); Phosphorous 3.2 mg/dL (2.7-4.5); Potassium 4.8 mEq/L (3.5-5.1)
[2020-08-07 06:05] LABS: Red Cell Distribution Width 13.2 % (11.5-14.5)
[2020-08-07 06:07] LABS: Hematocrit 31.9 % (35.3-44.9); Hemoglobin 10.2 g/dL (11.5-15.4); Immature Platelets 1.7 % (1.1-6.1); Mean Corpuscular Hemoglobin 32.7 pg (28.0-33.3); Mean Corpuscular Volume 102.2 fL (83.0-100.0); Mean Platelet Volume 9.2 fL (9.4-12.4); Red Blood Count 3.12 M/mcL (3.82-4.97); White Blood Count 13.1 K/mcL (4.3-11.1)
[2020-08-07] MEDS: amLODIPine 5 MG TABLET PO SCH (08:36)
[2020-08-07] MEDS: Bumetanide 1 MG TABLET PO SCH ×2 (08:36→19:59)
[2020-08-07] MEDS: Cholecalciferol (D-3) 1,000 UNIT (25MCG) TABLET PO SCH (08:36)
[2020-08-07] MEDS: Aspirin Enteric Coated 81 MG Tablet PO SCH (08:36)
[2020-08-07] MEDS: carvediloL 6.25 MG TABLET PO SCH ×2 (08:36→19:59)
[2020-08-07] MEDS: Multivit/Ca/Min/Fe/FA 1 TAB TABLET PO SCH (08:36)
[2020-08-07] MEDS: Gabapentin 300 MG CAPSULE PO SCH ×3 (08:36→19:59)
[2020-08-07] MEDS: predniSONE 20 MG TABLET PO SCH (08:37)
[2020-08-07] MEDS: cefTRIAXone 2,000 MG in Water for inj. (sterile) 20 ML IVP SCH (08:37)
[2020-08-07] MEDS: Azithromycin 500 MG in 0.9 % Sodium Chloride 250 ML IVPB SCH (08:39)
[2020-08-07] MEDS: Budesonide/Formoterol 80/4.5 1 PUFF INH IH SCH ×2 (09:23→20:11)
[2020-08-08] MEDS: Ipratropium/Albuterol Neb 3 ML IH SCH ×4 (00:05→11:07)
[2020-08-08 03:49] LABS: Basophils % 0.1 %; Hematocrit 34.2 % (35.3-44.9); Hemoglobin 10.5 g/dL (11.5-15.4); Immature Granulocytes % 0.5 % (0-4); Lymphocytes # 0.6 K/mcL (0.6-4.6); Lymphocytes % 5.5 %; Mean Corpuscular HGB Conc 30.7 g/dL (31.6-35.5); Mean Corpuscular Hemoglobin 32.1 pg (28.0-33.3); Mean Corpuscular Volume 104.6 fL (83.0-100.0); Monocytes # 0.5 K/mcL (0.0-1.3); Monocytes % 4.5 %; Neutrophils # 9.8 K/mcL (1.6-8.9); Platelet Count 113 K/mcL (140-400); Red Blood Count 3.27 M/mcL (3.82-4.97); Red Cell Distribution Width 13.1 % (11.5-14.5); Segmented Neutrophils % 89.4 %; White Blood Count 10.9 K/mcL (4.3-11.1)
[2020-08-08 04:07] VITALS: BP 148/56
[2020-08-08 04:13] LABS: Calcium 9.8 mg/dL (8.6-10.3); Potassium 4.5 mEq/L (3.5-5.1)
[2020-08-08] MEDS: *HR* Heparin 5,000 UNIT/ML VIAL SQ SCH ×2 (05:58→15:03)
[2020-08-08] MEDS: Budesonide/Formoterol 80/4.5 1 PUFF INH IH SCH (07:40)
[2020-08-08] MEDS: Cholecalciferol (D-3) 1,000 UNIT (25MCG) TABLET PO SCH (09:32)
[2020-08-08] MEDS: Bumetanide 1 MG TABLET PO SCH (09:32)
[2020-08-08] MEDS: Gabapentin 300 MG CAPSULE PO SCH ×2 (09:32→15:04)
[2020-08-08] MEDS: Aspirin Enteric Coated 81 MG Tablet PO SCH (09:32)
[2020-08-08] MEDS: predniSONE 20 MG TABLET PO SCH (09:32)
[2020-08-08] MEDS: carvediloL 6.25 MG TABLET PO SCH (09:32)
[2020-08-08] MEDS: cefTRIAXone 2,000 MG in Water for inj. (sterile) 20 ML IVP SCH (09:33)
[2020-08-08] MEDS: Multivit/Ca/Min/Fe/FA 1 TAB TABLET PO SCH (09:33)
[2020-08-08] MEDS: amLODIPine 5 MG TABLET PO SCH (09:33)
[2020-08-08] MEDS: Azithromycin 500 MG in 0.9 % Sodium Chloride 250 ML IVPB SCH (09:34)
[2020-08-08] MEDS ORDERED: carvediloL 6.25 MG TABLET PO SCH (17:00)
== END 2020-08-08 16:28 | disposition home health service (06) | DRG 871 ==
LOC: 3ANU 02:30 → EMEROOARM 02:30 → 3ANU 06:01 → SUATTDRO 17:33
PROVIDERS: ADMIT Family Medicine; ATTEND Internal Medicine

== ENCOUNTER 2020-09-15 17:53 | Inpatient (IN) ==
[2020-09-15] MEDS ORDERED: Ipratropium/Albuterol Neb 3 ML IH ONE ×2 (18:00→18:58)
[2020-09-15] MEDS ORDERED: methylPREDNISolone 125 MG/2 ML VIAL IVP ONE (18:00)
[2020-09-15 18:18] LABS: Basophils # 0.1 K/mcL (0.0-0.2); Basophils % 0.4 %; Eosinophils # 0.4 K/mcL (0.0-0.6); Eosinophils % 3.1 %; Hematocrit 34.9 % (35.3-44.9); Hemoglobin 10.8 g/dL (11.5-15.4); Immature Granulocytes % 0.4 % (0-4); Lymphocytes # 0.8 K/mcL (0.6-4.6); Lymphocytes % 6.8 %; Mean Corpuscular HGB Conc 30.9 g/dL (31.6-35.5); Mean Corpuscular Hemoglobin 32.7 pg (28.0-33.3); Mean Corpuscular Volume 105.8 fL (83.0-100.0); Mean Platelet Volume 8.4 fL (9.4-12.4); Monocytes # 0.6 K/mcL (0.0-1.3); Monocytes % 5.1 %; Neutrophils # 9.6 K/mcL (1.6-8.9); Platelet Count 143 K/mcL (140-400); Segmented Neutrophils % 84.2 %; White Blood Count 11.4 K/mcL (4.3-11.1)
[2020-09-15 18:34] LABS: BUN/Creatinine Ratio 20 (6-26); Blood Urea Nitrogen 52 mg/dL (8-23); Calcium 9.7 mg/dL (8.6-10.3); Carbon Dioxide 38 mEq/L (23-29); Chloride 98 mEq/L (98-107); Glucose 170 mg/dL (70-105); Osmolality,Calculated 310 (280-300); Potassium 4.6 mEq/L (3.5-5.1); Sodium 141 mEq/L (136-145); eGFR For African Americans 22 (> 60); eGFR For Non-African Americans 18 (> 60)
[2020-09-15 18:35] LABS: Troponin I < 0.03 ng/mL (< 0.04)
[2020-09-15] MEDS ORDERED: Furosemide 40 MG/4 ML VIAL IVP ONE (18:57)
[2020-09-15] MEDS ORDERED: levoFLOXacin 750 MG/150 ML 750 MG/150 ML BAG IVPB ONE (18:59)
[2020-09-15] MEDS ORDERED: Naloxone 0.4 MG/ML INJ IVP PRN (20:08)
[2020-09-15] MEDS ORDERED: Acetaminophen 325 MG TABLET PO PRN (20:08)
[2020-09-15] MEDS ORDERED: Ondansetron 4 MG/2 ML VIAL IVP PRN (20:08)
[2020-09-15] MEDS ORDERED: Ipratropium/Albuterol Neb 3 ML IH PRN (20:22)
[2020-09-15] MEDS: Budesonide/Formoterol 80/4.5 1 PUFF INH IH SCH (20:56)
[2020-09-15] MEDS ORDERED: Bumetanide 1 MG TABLET PO SCH (21:00)
[2020-09-15 21:53] LABS: VBG HCO3 38 mEq/L (21-27); VBG PCO2 83 mmHg (41-51); VBG PH 7.27 pH Units (7.32-7.42); VBG PO2 132 mmHg (25-50)
[2020-09-15 22:40] LABS: Bacteria,Urine Few per hpf (None-Few); Bilirubin,Urine Negative (Negative); Blood,Urine Small (Negative); Clarity,Urine Clear (Clear); Color,Urine Light-Yellow (Yellow); Glucose,Urine (UA) Normal (Normal); Hyaline Casts,Urine Few per lpf (None Seen); Ketones,Urine Negative (Negative); Leukocyte Esterase,Urine Negative (Negative); Mucus,Urine Few per lpf (None-Few); Nitrite,Urine Negative (Negative); Protein,Urine Trace mg/dL (Neg-Trace); RBC,Urine 0-3 per hpf (0-3); Specific Gravity,Urine 1.011 (1.010-1.025); Squamous Epithelial Cell,Urine Few per hpf (None-Few); Urobilinogen,Urine Normal (Normal); WBC,Urine 0-3 per hpf (0-3)
[2020-09-15] MEDS: Ipratropium/Albuterol Neb 3 ML IH SCH (23:57)
[2020-09-16] MEDS ORDERED: diazePAM 2 MG TABLET PO PRN (00:31)
[2020-09-16] MEDS: *HR* Heparin 5,000 UNIT/ML VIAL SQ SCH ×4 (00:42→20:54)
[2020-09-16] MEDS ORDERED: *HR* Labetalol 20 MG/4 ML SYRINGE IVP PRN (00:50)
[2020-09-16] MEDS: carvediloL 6.25 MG TABLET PO SCH ×3 (02:42→20:54)
[2020-09-16] MEDS: Gabapentin 300 MG CAPSULE PO SCH ×4 (02:42→20:54)
[2020-09-16] MEDS: MethylPREDNISolone 40 MG/ML VIAL IVP SCH ×4 (02:43→23:41)
[2020-09-16 03:20] LABS: Prothrombin Time 11.6 Seconds (9.4-12.1)
[2020-09-16 03:25] LABS: VBG HCO3 40 mEq/L (21-27); VBG PCO2 102 mmHg (41-51); VBG PH 7.21 pH Units (7.32-7.42); VBG PO2 127 mmHg (25-50)
[2020-09-16 03:27] LABS: Basophils % 0.1 %; Eosinophils % 0.1 %; Hematocrit 33.4 % (35.3-44.9); Hemoglobin 10.7 g/dL (11.5-15.4); Immature Granulocytes % 0.3 % (0-4); Lymphocytes # 0.3 K/mcL (0.6-4.6); Lymphocytes % 2.9 %; Mean Corpuscular Hemoglobin 33.3 pg (28.0-33.3); Mean Platelet Volume 8.6 fL (9.4-12.4); Monocytes % 0.3 %; Neutrophils # 11.1 K/mcL (1.6-8.9); Platelet Count 126 K/mcL (140-400); Red Blood Count 3.21 M/mcL (3.82-4.97); Red Cell Distribution Width 14.1 % (11.5-14.5); Segmented Neutrophils % 96.3 %; White Blood Count 11.5 K/mcL (4.3-11.1)
[2020-09-16 03:37] LABS: Albumin 4.1 g/dL (3.5-5.7); Albumin/Globulin Ratio 1.7 (1.1-2.2); Bilirubin,Total 0.4 mg/dL (0.3-1.0); Calcium 9.7 mg/dL (8.6-10.3); Globulin 2.4 g/dL (2.4-3.5); Potassium 5.3 mEq/L (3.5-5.1); Total Protein 6.5 g/dL (6.4-8.9)
[2020-09-16] MEDS: Ipratropium/Albuterol Neb 3 ML IH SCH ×5 (04:07→20:55)
[2020-09-16] MEDS: Doxycycline 100 MG in 0.9 % Sodium Chloride Mini Bag 100 ML IVPB SCH ×2 (05:11→17:34)
[2020-09-16] MEDS ORDERED: Ringers Solution, Lactated 1,000 ML IVC SCH (05:45)
[2020-09-16 07:25] LABS: VBG HCO3 36 mEq/L (21-27); VBG PCO2 60 mmHg (41-51); VBG PH 7.38 pH Units (7.32-7.42); VBG PO2 202 mmHg (25-50)
[2020-09-16] MEDS: Budesonide/Formoterol 80/4.5 1 PUFF INH IH SCH ×2 (07:39→20:55)
[2020-09-16] MEDS ORDERED: Azithromycin 500 MG in 0.9 % Sodium Chloride 250 ML IVPB SCH (08:00)
[2020-09-16] MEDS ORDERED: Bumetanide 1 MG/4 ML VIAL IVP SCH ×2 (08:00→17:00)
[2020-09-16] MEDS: cefTRIAXone 1,000 MG in Water for inj. (sterile) 10 ML IVP SCH (08:20)
[2020-09-16] MEDS: Aspirin Enteric Coated 81 MG Tablet PO SCH (08:23)
[2020-09-16] MEDS: amLODIPine 5 MG TABLET PO SCH (08:24)
[2020-09-16] MEDS ORDERED: NON-FORMULARY MEDICATION 1 EACH EACH (Umeclidinium Bromide [Incruse Ellipta] 1 PUFF) IH SCH (09:00)
[2020-09-17] MEDS: Ipratropium/Albuterol Neb 3 ML IH SCH ×7 (00:39→23:45)
[2020-09-17 02:57] LABS: Basophils % 0.1 %; Hemoglobin 9.3 g/dL (11.5-15.4); Immature Granulocytes % 0.4 % (0-4); Lymphocytes # 0.4 K/mcL (0.6-4.6); Lymphocytes % 3.1 %; Mean Corpuscular Hemoglobin 32.4 pg (28.0-33.3); Mean Corpuscular Volume 104.5 fL (83.0-100.0); Mean Platelet Volume 8.7 fL (9.4-12.4); Monocytes # 0.1 K/mcL (0.0-1.3); Monocytes % 0.9 %; Neutrophils # 13.2 K/mcL (1.6-8.9); Platelet Count 120 K/mcL (140-400); Red Blood Count 2.87 M/mcL (3.82-4.97); Red Cell Distribution Width 14.1 % (11.5-14.5); Segmented Neutrophils % 95.5 %; White Blood Count 13.9 K/mcL (4.3-11.1)
[2020-09-17 03:06] LABS: Calcium 9.2 mg/dL (8.6-10.3); Phosphorous 4.2 mg/dL (2.7-4.5); Potassium 5.5 mEq/L (3.5-5.1)
[2020-09-17] MEDS: Doxycycline 100 MG in 0.9 % Sodium Chloride Mini Bag 100 ML IVPB SCH (06:06)
[2020-09-17] MEDS: *HR* Heparin 5,000 UNIT/ML VIAL SQ SCH ×3 (06:07→20:48)
[2020-09-17] MEDS: Budesonide/Formoterol 80/4.5 1 PUFF INH IH SCH ×2 (08:01→19:51)
[2020-09-17] MEDS: MethylPREDNISolone 40 MG/ML VIAL IVP SCH (08:03)
[2020-09-17] MEDS: cefTRIAXone 1,000 MG in Water for inj. (sterile) 10 ML IVP SCH (08:04)
[2020-09-17] MEDS: Aspirin Enteric Coated 81 MG Tablet PO SCH (08:06)
[2020-09-17] MEDS: amLODIPine 5 MG TABLET PO SCH (08:06)
[2020-09-17] MEDS: carvediloL 6.25 MG TABLET PO SCH ×2 (08:06→20:47)
[2020-09-17] MEDS: Gabapentin 300 MG CAPSULE PO SCH ×3 (08:06→20:48)
[2020-09-17] MEDS ORDERED: Bumetanide 1 MG/4 ML VIAL IVP SCH (09:00)
[2020-09-17] MEDS ORDERED: Albumin 25% 25gram/100mL 25 GM/100 ML IV.SOLN IVPB ONE (11:47)
[2020-09-17] MEDS: Doxycycline 100 MG CAPSULE PO SCH (20:47)
[2020-09-18] MEDS: Ipratropium/Albuterol Neb 3 ML IH SCH ×6 (03:55→23:19)
[2020-09-18 05:19] LABS: Basophils % 0.1 %; Hematocrit 29.9 % (35.3-44.9); Hemoglobin 9.5 g/dL (11.5-15.4); Immature Granulocytes % 0.3 % (0-4); Lymphocytes # 0.9 K/mcL (0.6-4.6); Lymphocytes % 7.3 %; Mean Corpuscular HGB Conc 31.8 g/dL (31.6-35.5); Mean Corpuscular Hemoglobin 33.3 pg (28.0-33.3); Mean Corpuscular Volume 104.9 fL (83.0-100.0); Mean Platelet Volume 9.5 fL (9.4-12.4); Monocytes # 0.5 K/mcL (0.0-1.3); Neutrophils # 11.1 K/mcL (1.6-8.9); Platelet Count 116 K/mcL (140-400); Red Blood Count 2.85 M/mcL (3.82-4.97); Red Cell Distribution Width 14.2 % (11.5-14.5); Segmented Neutrophils % 88.3 %; White Blood Count 12.6 K/mcL (4.3-11.1)
[2020-09-18 05:28] LABS: Calcium 9.4 mg/dL (8.6-10.3); Magnesium 2.2 mg/dL (1.6-2.6); Phosphorous 4.4 mg/dL (2.7-4.5); Potassium 5.4 mEq/L (3.5-5.1)
[2020-09-18] MEDS: *HR* Heparin 5,000 UNIT/ML VIAL SQ SCH ×3 (05:32→20:39)
[2020-09-18] MEDS: Budesonide/Formoterol 80/4.5 1 PUFF INH IH SCH ×2 (07:33→19:51)
[2020-09-18] MEDS: Cholecalciferol (D-3) 1,000 UNIT (25MCG) TABLET PO SCH (09:07)
[2020-09-18] MEDS: Aspirin Enteric Coated 81 MG Tablet PO SCH (09:07)
[2020-09-18] MEDS: Gabapentin 300 MG CAPSULE PO SCH ×3 (09:08→20:39)
[2020-09-18] MEDS: carvediloL 6.25 MG TABLET PO SCH ×2 (09:08→20:38)
[2020-09-18] MEDS: amLODIPine 5 MG TABLET PO SCH (09:08)
[2020-09-18] MEDS: Albumin 25% 25gram/100mL 25 GM/100 ML IV.SOLN IVPB SCH ×3 (09:08→23:46)
[2020-09-18] MEDS: Doxycycline 100 MG CAPSULE PO SCH ×2 (09:08→20:39)
[2020-09-18] MEDS: predniSONE 20 MG TABLET PO SCH (09:08)
[2020-09-18 15:29] LABS: Creatinine,Urine 48 mg/dL
[2020-09-19] MEDS: Ipratropium/Albuterol Neb 3 ML IH SCH ×6 (03:52→23:40)
[2020-09-19 04:15] LABS: Hemoglobin 8.4 g/dL (11.5-15.4); White Blood Count 7.3 K/mcL (4.3-11.1)
[2020-09-19 04:17] LABS: Hematocrit 26.4 % (35.3-44.9); Immature Granulocytes % 0.4 % (0-4); Immature Platelets 1.4 % (1.1-6.1); Lymphocytes # 0.5 K/mcL (0.6-4.6); Lymphocytes % 7.1 %; Mean Corpuscular HGB Conc 31.8 g/dL (31.6-35.5); Mean Corpuscular Hemoglobin 33.1 pg (28.0-33.3); Mean Corpuscular Volume 103.9 fL (83.0-100.0); Mean Platelet Volume 8.9 fL (9.4-12.4); Monocytes # 0.4 K/mcL (0.0-1.3); Monocytes % 5.6 %; Platelet Count 110 K/mcL (140-400); Red Blood Count 2.54 M/mcL (3.82-4.97); Segmented Neutrophils % 86.9 %
[2020-09-19 04:20] LABS: Neutrophils # 6.3 K/mcL (1.6-8.9)
[2020-09-19 04:35] LABS: Calcium 9.6 mg/dL (8.6-10.3); Magnesium 2.2 mg/dL (1.6-2.6); Phosphorous 3.9 mg/dL (2.7-4.5); Potassium 5.1 mEq/L (3.5-5.1)
[2020-09-19] MEDS: *HR* Heparin 5,000 UNIT/ML VIAL SQ SCH ×3 (05:26→20:51)
[2020-09-19] MEDS: Albumin 25% 25gram/100mL 25 GM/100 ML IV.SOLN IVPB SCH ×3 (07:58→23:27)
[2020-09-19] MEDS: carvediloL 6.25 MG TABLET PO SCH ×2 (07:59→20:51)
[2020-09-19] MEDS: amLODIPine 5 MG TABLET PO SCH (07:59)
[2020-09-19] MEDS: Cholecalciferol (D-3) 1,000 UNIT (25MCG) TABLET PO SCH (07:59)
[2020-09-19] MEDS: Doxycycline 100 MG CAPSULE PO SCH ×2 (07:59→20:51)
[2020-09-19] MEDS: Gabapentin 300 MG CAPSULE PO SCH ×3 (07:59→20:51)
[2020-09-19] MEDS: Aspirin Enteric Coated 81 MG Tablet PO SCH (07:59)
[2020-09-19] MEDS: predniSONE 20 MG TABLET PO SCH (07:59)
[2020-09-19] MEDS: Budesonide/Formoterol 80/4.5 1 PUFF INH IH SCH ×2 (08:04→20:06)
[2020-09-19] MEDS ORDERED: *HR* Dextrose 50 % in Water (Vial) 50 ML VIAL IVP PRN (16:34)
[2020-09-19] MEDS ORDERED: Dextrose Gel 15 GM/37.5 ML TUBE PO PRN ×2 (16:34)
[2020-09-19] MEDS ORDERED: D5% in Water 1,000 ML IVC PRN (16:34)
[2020-09-20] MEDS: Ipratropium/Albuterol Neb 3 ML IH SCH ×4 (03:46→15:47)
[2020-09-20] MEDS: *HR* Heparin 5,000 UNIT/ML VIAL SQ SCH ×2 (04:28→14:49)
[2020-09-20] MEDS: Budesonide/Formoterol 80/4.5 1 PUFF INH IH SCH (07:51)
[2020-09-20] MEDS: Insulin LISPRO 300 UNITS/3 ML VIAL SUBQ SCH ×2 (08:27→12:20)
[2020-09-20] MEDS: Doxycycline 100 MG CAPSULE PO SCH (08:34)
[2020-09-20] MEDS: Gabapentin 300 MG CAPSULE PO SCH ×2 (08:34→14:49)
[2020-09-20] MEDS: Aspirin Enteric Coated 81 MG Tablet PO SCH (08:34)
[2020-09-20] MEDS: carvediloL 6.25 MG TABLET PO SCH (08:34)
[2020-09-20] MEDS: predniSONE 20 MG TABLET PO SCH (08:34)
[2020-09-20] MEDS: Cholecalciferol (D-3) 1,000 UNIT (25MCG) TABLET PO SCH (08:34)
[2020-09-20] MEDS ORDERED: NIFEdipine XL (24 HR) 30 MG TAB.ER.24 PO SCH (09:00)
[2020-09-20 10:19] LABS: Calcium 10.7 mg/dL (8.6-10.3); Magnesium 2.3 mg/dL (1.6-2.6); Phosphorous 3.9 mg/dL (2.7-4.5); Potassium 4.8 mEq/L (3.5-5.1)
[2020-09-20 16:09] VITALS: BP 161/69
== END 2020-09-20 17:29 | disposition home health service (06) | DRG 291 ==
LOC: 2NNU 17:53 → EMEROOARM 17:53 → SUATTDRO 20:07 → 2NNU 20:57 → SUATTDRO 09-17 11:59 → 2ANU 09-18 16:21
PROVIDERS: ADMIT Internal Medicine Nephrology; ATTEND Pharmacist

== ENCOUNTER 2020-11-12 15:19 | Inpatient (IN) ==
[2020-11-12] MEDS ORDERED: methylPREDNISolone 125 MG/2 ML VIAL IVP ONE (15:48)
[2020-11-12] MEDS ORDERED: Ipratropium/Albuterol Neb 3 ML IH ONE (15:48)
[2020-11-12 16:17] LABS: Basophils % 0.3 %; Eosinophils # 0.5 K/mcL (0.0-0.6); Eosinophils % 3.8 %; Hematocrit 34.1 % (35.3-44.9); Hemoglobin 10.6 g/dL (11.5-15.4); Immature Granulocytes % 0.3 % (0-4); Lymphocytes # 0.6 K/mcL (0.6-4.6); Lymphocytes % 5.1 %; Mean Corpuscular HGB Conc 31.1 g/dL (31.6-35.5); Mean Corpuscular Hemoglobin 32.7 pg (28.0-33.3); Mean Corpuscular Volume 105.2 fL (83.0-100.0); Mean Platelet Volume 8.7 fL (9.4-12.4); Monocytes # 0.6 K/mcL (0.0-1.3); Monocytes % 5.4 %; Neutrophils # 10.1 K/mcL (1.6-8.9); Platelet Count 120 K/mcL (140-400); Red Blood Count 3.24 M/mcL (3.82-4.97); Red Cell Distribution Width 13.9 % (11.5-14.5); Segmented Neutrophils % 85.1 %; White Blood Count 11.9 K/mcL (4.3-11.1)
[2020-11-12] MEDS ORDERED: Furosemide 20 MG/2 ML VIAL IVP ONE (16:33)
[2020-11-12 16:39] LABS: BUN/Creatinine Ratio 18 (6-26); Blood Urea Nitrogen 44 mg/dL (8-23); Calcium 9.8 mg/dL (8.6-10.3); Carbon Dioxide 38 mEq/L (23-29); Chloride 102 mEq/L (98-107); Glucose 140 mg/dL (70-105); Osmolality,Calculated 313 (280-300); Potassium 4.5 mEq/L (3.5-5.1); Sodium 145 mEq/L (136-145); eGFR For African Americans 24 (> 60); eGFR For Non-African Americans 20 (> 60)
[2020-11-12 16:40] LABS: Troponin I < 0.03 ng/mL (< 0.04)
[2020-11-12 16:58] LABS: Ferritin 200 ng/mL (10-120)
[2020-11-12 17:03] LABS: Adenovirus Not Detected (Not Detect); Bordetella Pertussis Not Detected (Not Detect); Chlamydophila pneumoniae Not Detected (Not Detect); Coronavirus 229E Not Detected (Not Detect); Coronavirus HKU1 Not Detected (Not Detect); Coronavirus NL63 Not Detected (Not Detect); Coronavirus OC43 Not Detected (Not Detect); Human Metapneumovirus Not Detected (Not Detect); Human Rhinovirus/Enterovirus Not Detected (Not Detect); Influenza A Subtype 2009 H1 Not Detected (Not Detect); Influenza B Not Detected (Not Detect); Mycoplasma pneumoniae Not Detected (Not Detect); Parainfluenza Virus 1 Not Detected (Not Detect); Parainfluenza Virus 2 Not Detected (Not Detect); Parainfluenza Virus 3 Not Detected (Not Detect); Parainfluenza Virus 4 Not Detected (Not Detect); Respiratory Syncytial Virus Not Detected (Not Detect); SARS-CoV-2 Not Detected (Not Detect)
[2020-11-12] MEDS ORDERED: Naloxone 0.4 MG/ML INJ IVP PRN (17:13)
[2020-11-12] MEDS ORDERED: Acetaminophen 325 MG TABLET PO PRN (17:16)
[2020-11-12] MEDS ORDERED: diazePAM 2 MG TABLET PO PRN (17:17)
[2020-11-12] MEDS ORDERED: Perflutren Lipid Microsphere 1.3 ML in 0.9 % Sodium Chloride 8.7 ML IVP PRN (17:20)
[2020-11-12] MEDS ORDERED: Albuterol 2.5 MG/3 ML NEBULIZER IH PRN (17:21)
[2020-11-12] MEDS ORDERED: *HR* Metoprolol 5 MG/5 ML VIAL IVP ONE (17:34)
[2020-11-12] MEDS: Gabapentin 300 MG CAPSULE PO SCH (20:00)
[2020-11-12] MEDS: *HR* Heparin 5,000 UNIT/ML VIAL SQ SCH (20:00)
[2020-11-12] MEDS: Budesonide/Formoterol 80/4.5 1 PUFF INH IH SCH ×2 (20:06→20:13)
[2020-11-12] MEDS: Ipratropium/Albuterol Neb 3 ML IH SCH ×2 (20:07→23:38)
[2020-11-12 20:09] LABS: Thyroid Stimulating Hormone 2.576 mcIU/mL (0.340-5.600)
[2020-11-12] MEDS ORDERED: carvediloL 6.25 MG TABLET PO SCH (21:00)
[2020-11-12] MEDS ORDERED: *HR* Labetalol 20 MG/4 ML SYRINGE IVP PRN (21:53)
[2020-11-13 01:33] LABS: Basophils % 0.2 %; Eosinophils % 0.2 %; Immature Granulocytes % 0.6 % (0-4)
[2020-11-13 01:35] LABS: Hematocrit 36.2 % (35.3-44.9); Hemoglobin 11.3 g/dL (11.5-15.4); Immature Platelets 1.5 % (1.1-6.1); Lymphocytes # 0.3 K/mcL (0.6-4.6); Lymphocytes % 2.5 %; Mean Corpuscular HGB Conc 31.2 g/dL (31.6-35.5); Mean Corpuscular Hemoglobin 33.5 pg (28.0-33.3); Mean Corpuscular Volume 107.4 fL (83.0-100.0); Mean Platelet Volume 10.1 fL (9.4-12.4); Monocytes # 0.1 K/mcL (0.0-1.3); Monocytes % 0.6 %; Neutrophils # 11.8 K/mcL (1.6-8.9); Platelet Count 142 K/mcL (140-400); Red Blood Count 3.37 M/mcL (3.82-4.97); Segmented Neutrophils % 95.9 %; White Blood Count 12.3 K/mcL (4.3-11.1)
[2020-11-13 01:53] LABS: Calcium 9.6 mg/dL (8.6-10.3); Potassium 5.2 mEq/L (3.5-5.1)
[2020-11-13] MEDS: Ipratropium/Albuterol Neb 3 ML IH SCH ×6 (03:47→23:26)
[2020-11-13] MEDS: *HR* Heparin 5,000 UNIT/ML VIAL SQ SCH ×3 (05:23→19:55)
[2020-11-13] MEDS: Budesonide/Formoterol 80/4.5 1 PUFF INH IH SCH ×2 (08:15→19:52)
[2020-11-13] MEDS: Azithromycin 250 MG TABLET PO SCH (08:25)
[2020-11-13] MEDS: Gabapentin 300 MG CAPSULE PO SCH ×3 (08:25→19:55)
[2020-11-13] MEDS: predniSONE 20 MG TABLET PO SCH (08:25)
[2020-11-13] MEDS: Aspirin Enteric Coated 81 MG Tablet PO SCH (08:25)
[2020-11-13] MEDS: carvediloL 25 MG TABLET PO SCH ×2 (08:25→17:52)
[2020-11-13] MEDS ORDERED: Furosemide 40 MG/4 ML VIAL IVP SCH (09:00)
[2020-11-13] MEDS: NIFEdipine XL (24 HR) 30 MG TAB.ER.24 PO SCH (13:51)
[2020-11-13] MEDS: Furosemide 40 MG TABLET PO SCH (17:52)
[2020-11-14] MEDS: Ipratropium/Albuterol Neb 3 ML IH SCH ×3 (03:37→11:07)
[2020-11-14 05:48] LABS: Basophils % 0.1 %; Eosinophils % 0.1 %; Immature Granulocytes % 0.4 % (0-4)
[2020-11-14 05:50] LABS: Hematocrit 31.4 % (35.3-44.9); Hemoglobin 9.8 g/dL (11.5-15.4); Immature Platelets 1.5 % (1.1-6.1); Lymphocytes # 0.7 K/mcL (0.6-4.6); Lymphocytes % 6.3 %; Mean Corpuscular HGB Conc 31.2 g/dL (31.6-35.5); Mean Corpuscular Hemoglobin 32.8 pg (28.0-33.3); Mean Platelet Volume 8.9 fL (9.4-12.4); Monocytes # 0.6 K/mcL (0.0-1.3); Red Blood Count 2.99 M/mcL (3.82-4.97); Red Cell Distribution Width 13.8 % (11.5-14.5); Segmented Neutrophils % 88.1 %; White Blood Count 11.3 K/mcL (4.3-11.1)
[2020-11-14 05:51] LABS: Platelet Count 93 K/mcL (140-400)
[2020-11-14] MEDS: *HR* Heparin 5,000 UNIT/ML VIAL SQ SCH (06:17)
[2020-11-14] MEDS: Budesonide/Formoterol 80/4.5 1 PUFF INH IH SCH (07:38)
[2020-11-14 08:11] LABS: Calcium 9.8 mg/dL (8.6-10.3); Potassium 5.2 mEq/L (3.5-5.1)
[2020-11-14] MEDS: Aspirin Enteric Coated 81 MG Tablet PO SCH (08:52)
[2020-11-14] MEDS: predniSONE 20 MG TABLET PO SCH (08:52)
[2020-11-14] MEDS: NIFEdipine XL (24 HR) 30 MG TAB.ER.24 PO SCH (08:52)
[2020-11-14] MEDS: carvediloL 25 MG TABLET PO SCH (08:52)
[2020-11-14] MEDS: Gabapentin 300 MG CAPSULE PO SCH (08:53)
[2020-11-14] MEDS: Furosemide 40 MG TABLET PO SCH (08:53)
[2020-11-14] MEDS: Azithromycin 250 MG TABLET PO SCH (08:53)
[2020-11-14 11:22] VITALS: BP 142/75
== END 2020-11-14 16:07 | disposition home or self-care (01) | DRG 291 ==
LOC: EMEROOARM 15:19 → 2ANU 15:19
PROVIDERS: ADMIT Internal Medicine; ATTEND Internal Medicine

== ENCOUNTER 2020-12-24 18:55 | Inpatient (IN) ==
[2020-12-24 19:44] LABS: Basophils % 0.4 %; Eosinophils # 0.3 K/mcL (0.0-0.6); Eosinophils % 3.7 %; Hemoglobin 10.6 g/dL (11.5-15.4); Immature Granulocytes % 0.4 % (0-4); Lymphocytes # 0.7 K/mcL (0.6-4.6); Lymphocytes % 8.3 %; Mean Corpuscular HGB Conc 31.2 g/dL (31.6-35.5); Mean Corpuscular Hemoglobin 32.6 pg (28.0-33.3); Mean Corpuscular Volume 104.6 fL (83.0-100.0); Mean Platelet Volume 8.7 fL (9.4-12.4); Monocytes # 0.5 K/mcL (0.0-1.3); Monocytes % 5.8 %; Neutrophils # 6.9 K/mcL (1.6-8.9); Platelet Count 105 K/mcL (140-400); Red Blood Count 3.25 M/mcL (3.82-4.97); Red Cell Distribution Width 13.4 % (11.5-14.5); Segmented Neutrophils % 81.4 %; White Blood Count 8.5 K/mcL (4.3-11.1)
[2020-12-24 19:51] LABS: Prothrombin Time 11.9 Seconds (9.4-12.1)
[2020-12-24 20:05] LABS: BUN/Creatinine Ratio 18 (6-26); Blood Urea Nitrogen 48 mg/dL (8-23); Calcium 9.4 mg/dL (8.6-10.3); Carbon Dioxide 38 mEq/L (23-29); Chloride 97 mEq/L (98-107); Glucose 104 mg/dL (70-105); Osmolality,Calculated 303 (280-300); Potassium 4.3 mEq/L (3.5-5.1); Sodium 140 mEq/L (136-145); eGFR For African Americans 21 (> 60); eGFR For Non-African Americans 17 (> 60)
[2020-12-24 20:06] LABS: Troponin I < 0.03 ng/mL (< 0.04)
[2020-12-24] MEDS ORDERED: Furosemide 40 MG in 0.9 % Sodium Chloride 50 ML IV STA (20:39)
[2020-12-24] MEDS ORDERED: Furosemide 40 MG/4 ML VIAL IVP STA (20:46)
[2020-12-24] MEDS ORDERED: diazePAM 2 MG TABLET PO PRN (23:25)
[2020-12-24] MEDS ORDERED: Acetaminophen 325 MG TABLET PO PRN (23:30)
[2020-12-24] MEDS ORDERED: Melatonin 3 MG TABLET PO PRN (23:30)
[2020-12-24] MEDS ORDERED: Naloxone 0.4 MG/ML INJ IVP PRN (23:30)
[2020-12-24] MEDS ORDERED: Ondansetron 4 MG/2 ML VIAL IVP PRN (23:30)
[2020-12-25] MEDS: predniSONE 20 MG TABLET PO SCH ×2 (00:28→09:14)
[2020-12-25] MEDS: Azithromycin 250 MG TABLET PO SCH ×2 (00:28→09:14)
[2020-12-25 02:30] LABS: Basophils # 0.1 K/mcL (0.0-0.2); Basophils % 0.4 %; Eosinophils # 0.5 K/mcL (0.0-0.6); Eosinophils % 3.9 %; Hematocrit 36.3 % (35.3-44.9); Hemoglobin 11.3 g/dL (11.5-15.4); Immature Granulocytes % 0.3 % (0-4); Lymphocytes # 0.7 K/mcL (0.6-4.6); Lymphocytes % 6.4 %; Mean Corpuscular HGB Conc 31.1 g/dL (31.6-35.5); Mean Corpuscular Hemoglobin 33.2 pg (28.0-33.3); Mean Corpuscular Volume 106.8 fL (83.0-100.0); Monocytes # 0.5 K/mcL (0.0-1.3); Monocytes % 4.7 %; Neutrophils # 9.7 K/mcL (1.6-8.9); Platelet Count 126 K/mcL (140-400); Red Cell Distribution Width 13.6 % (11.5-14.5); Segmented Neutrophils % 84.3 %; White Blood Count 11.5 K/mcL (4.3-11.1)
[2020-12-25 02:53] LABS: Calcium 9.7 mg/dL (8.6-10.3); Potassium 4.5 mEq/L (3.5-5.1)
[2020-12-25] MEDS: Budesonide/Formoterol 80/4.5 1 PUFF INH IH SCH (07:55)
[2020-12-25] MEDS ORDERED: Furosemide 40 MG/4 ML VIAL IVP SCH (09:00)
[2020-12-25] MEDS: Gabapentin 300 MG CAPSULE PO SCH ×3 (09:13→20:58)
[2020-12-25] MEDS: Aspirin Enteric Coated 81 MG Tablet PO SCH (09:14)
[2020-12-25] MEDS: Furosemide 40 MG/4 ML VIAL IVP SCH ×2 (09:14→16:04)
[2020-12-25] MEDS: NIFEdipine XL (24 HR) 30 MG TAB.ER.24 PO SCH (09:15)
[2020-12-26] MEDS: Budesonide/Formoterol 80/4.5 1 PUFF INH IH SCH (07:48)
[2020-12-26 08:40] LABS: Calcium 9.9 mg/dL (8.6-10.3); Potassium 4.5 mEq/L (3.5-5.1)
[2020-12-26] MEDS: Azithromycin 250 MG TABLET PO SCH (09:18)
[2020-12-26] MEDS: Gabapentin 300 MG CAPSULE PO SCH ×3 (09:18→19:59)
[2020-12-26] MEDS: carvediloL 25 MG TABLET PO SCH ×2 (09:18→15:59)
[2020-12-26] MEDS: NIFEdipine XL (24 HR) 30 MG TAB.ER.24 PO SCH (09:18)
[2020-12-26] MEDS: Aspirin Enteric Coated 81 MG Tablet PO SCH (09:19)
[2020-12-26] MEDS: predniSONE 20 MG TABLET PO SCH (09:19)
[2020-12-26] MEDS: Furosemide 40 MG/4 ML VIAL IVP SCH ×2 (09:19→15:59)
[2020-12-26 11:39] LABS: ABG Base Excess 14 mEq/L (-2 to 3); ABG HCO3 43 mEq/L (21-27); ABG Oxygen Saturation 92 % (95-98); ABG PCO2 80 mmHg (35-45); ABG PH 7.34 pH Units (7.32-7.45); ABG PO2 71 mmHg (85-104); ABG TCO2 45 mEq/L (20-26)
[2020-12-27 05:05] LABS: Basophils % 0.1 %; Eosinophils % 0.1 %; Hemoglobin 10.3 g/dL (11.5-15.4); Immature Granulocytes % 0.4 % (0-4); Lymphocytes # 0.6 K/mcL (0.6-4.6); Lymphocytes % 6.4 %; Mean Corpuscular HGB Conc 32.2 g/dL (31.6-35.5); Mean Corpuscular Volume 102.6 fL (83.0-100.0); Mean Platelet Volume 8.9 fL (9.4-12.4); Monocytes # 0.4 K/mcL (0.0-1.3); Monocytes % 4.7 %; Neutrophils # 8.3 K/mcL (1.6-8.9); Platelet Count 108 K/mcL (140-400); Red Blood Count 3.12 M/mcL (3.82-4.97); Red Cell Distribution Width 13.4 % (11.5-14.5); Segmented Neutrophils % 88.3 %; White Blood Count 9.4 K/mcL (4.3-11.1)
[2020-12-27 05:35] LABS: Calcium 9.8 mg/dL (8.6-10.3); Potassium 4.8 mEq/L (3.5-5.1)
[2020-12-27 07:17] VITALS: BP 150/66
[2020-12-27] MEDS: Budesonide/Formoterol 80/4.5 1 PUFF INH IH SCH (08:14)
[2020-12-27] MEDS: Aspirin Enteric Coated 81 MG Tablet PO SCH (09:13)
[2020-12-27] MEDS: NIFEdipine XL (24 HR) 30 MG TAB.ER.24 PO SCH (09:13)
[2020-12-27] MEDS: Azithromycin 250 MG TABLET PO SCH (09:13)
[2020-12-27] MEDS: predniSONE 20 MG TABLET PO SCH (09:13)
[2020-12-27] MEDS: carvediloL 25 MG TABLET PO SCH (09:13)
[2020-12-27] MEDS: Furosemide 40 MG/4 ML VIAL IVP SCH (09:14)
[2020-12-27] MEDS: Gabapentin 300 MG CAPSULE PO SCH (09:14)
== END 2020-12-27 11:11 | disposition home or self-care (01) | DRG 291 ==
LOC: 2ANU 18:55 → EMEROOARM 18:55 → 2ANU 12-25 00:47 → SUATTDRO 12-26 12:52
PROVIDERS: ADMIT Internal Medicine; ATTEND Family Medicine

== ENCOUNTER 2021-04-16 18:16 | Inpatient (IN) ==
[2021-04-16] MEDS ORDERED: Azithromycin 500 MG in 0.9 % Sodium Chloride 250 ML IVPB ONE (18:24)
[2021-04-16] MEDS ORDERED: 0.9 % Sodium Chloride 1,000 ML IVC ONE (18:24)
[2021-04-16] MEDS ORDERED: Furosemide 40 MG/4 ML VIAL IVP ONE (18:24)
[2021-04-16 18:48] LABS: Basophils % 0.3 %; Eosinophils # 0.2 K/mcL (0.0-0.6); Eosinophils % 1.8 %; Hematocrit 27.5 % (35.3-44.9); Hemoglobin 8.4 g/dL (11.5-15.4); Immature Granulocytes % 0.6 % (0-4); Lymphocytes # 0.7 K/mcL (0.6-4.6); Lymphocytes % 6.1 %; Mean Corpuscular HGB Conc 30.5 g/dL (31.6-35.5); Mean Corpuscular Hemoglobin 30.7 pg (28.0-33.3); Mean Corpuscular Volume 100.4 fL (83.0-100.0); Mean Platelet Volume 8.6 fL (9.4-12.4); Monocytes # 0.7 K/mcL (0.0-1.3); Monocytes % 6.1 %; Neutrophils # 9.7 K/mcL (1.6-8.9); Platelet Count 175 K/mcL (140-400); Red Blood Count 2.74 M/mcL (3.82-4.97); Red Cell Distribution Width 13.6 % (11.5-14.5); Segmented Neutrophils % 85.1 %; White Blood Count 11.4 K/mcL (4.3-11.1)
[2021-04-16 18:49] LABS: VBG HCO3 46 mEq/L (21-27); VBG PCO2 92 mmHg (41-51); VBG PO2 45 mmHg (25-50)
[2021-04-16 19:11] LABS: Calcium 9.4 mg/dL (8.6-10.3); Potassium 4.6 mEq/L (3.5-5.1); Troponin I 0.04 ng/mL (< 0.04)
[2021-04-16] MEDS: Ipratropium/Albuterol Neb 3 ML IH SCH ×2 (19:55→21:32)
[2021-04-16] MEDS ORDERED: Naloxone 0.4 MG/ML INJ IVP PRN (20:10)
[2021-04-16] MEDS ORDERED: Acetaminophen 325 MG TABLET PO PRN (20:10)
[2021-04-16] MEDS ORDERED: Melatonin 3 MG TABLET PO PRN (20:10)
[2021-04-16] MEDS ORDERED: Ondansetron 4 MG/2 ML VIAL IVP PRN (20:10)
[2021-04-16 20:44] LABS: VBG HCO3 42 mEq/L (21-27); VBG PCO2 98 mmHg (41-51); VBG PH 7.24 pH Units (7.32-7.42); VBG PO2 183 mmHg (25-50)
[2021-04-16] MEDS ORDERED: Furosemide 40 MG TABLET PO SCH (21:00)
[2021-04-16] MEDS: Budesonide/Formoterol 80/4.5 1 PUFF INH IH SCH (21:40)
[2021-04-16] MEDS ORDERED: MethylPREDNISolone 40 MG/ML VIAL IVP ONE (22:35)
[2021-04-17] MEDS: Ipratropium/Albuterol Neb 3 ML IH SCH ×5 (03:24→19:38)
[2021-04-17] MEDS: *HR* Heparin 5,000 UNIT/ML VIAL SQ SCH ×3 (04:46→20:38)
[2021-04-17 08:17] LABS: ABG Base Excess 12 mEq/L (-2 to 3); ABG HCO3 41 mEq/L (21-27); ABG Oxygen Saturation 97 % (95-98); ABG PCO2 95 mmHg (35-45); ABG PH 7.24 pH Units (7.32-7.45); ABG PO2 119 mmHg (85-104); ABG TCO2 44 mEq/L (20-26); Blood Gas VT 500 cc
[2021-04-17] MEDS: Furosemide 40 MG/4 ML VIAL IVP SCH ×2 (08:38→16:07)
[2021-04-17] MEDS ORDERED: Azithromycin 250 MG TABLET PO SCH (09:00)
[2021-04-17] MEDS: Aspirin Enteric Coated 81 MG Tablet PO SCH (09:46)
[2021-04-17] MEDS: Budesonide/Formoterol 80/4.5 1 PUFF INH IH SCH ×2 (10:10→19:38)
[2021-04-17 10:14] LABS: ABG Base Excess 11 mEq/L (-2 to 3); ABG HCO3 41 mEq/L (21-27); ABG Oxygen Saturation 88 % (95-98); ABG PCO2 109 mmHg (35-45); ABG PH 7.18 pH Units (7.32-7.45); ABG PO2 72 mmHg (85-104); ABG TCO2 44 mEq/L (20-26); Blood Gas VT 500 cc
[2021-04-17 11:07] LABS: VBG HCO3 39 mEq/L (21-27); VBG PCO2 76 mmHg (41-51); VBG PH 7.32 pH Units (7.32-7.42); VBG PO2 61 mmHg (25-50)
[2021-04-17 11:19] LABS: INR 1.1; Prothrombin Time 12.6 Seconds (9.4-12.1)
[2021-04-17 11:20] LABS: Basophils % 0.1 %; Hematocrit 24.9 % (35.3-44.9); Hemoglobin 7.7 g/dL (11.5-15.4); Lymphocytes # 0.4 K/mcL (0.6-4.6); Mean Corpuscular HGB Conc 30.9 g/dL (31.6-35.5); Mean Corpuscular Hemoglobin 31.3 pg (28.0-33.3); Mean Corpuscular Volume 101.2 fL (83.0-100.0); Mean Platelet Volume 8.9 fL (9.4-12.4); Monocytes # 0.3 K/mcL (0.0-1.3); Monocytes % 3.6 %; Neutrophils # 6.4 K/mcL (1.6-8.9); Nucleated Red Blood Cells 0.3 /100 WBC (0); Platelet Count 143 K/mcL (140-400); Red Blood Count 2.46 M/mcL (3.82-4.97); Red Cell Distribution Width 13.4 % (11.5-14.5); Segmented Neutrophils % 89.3 %; White Blood Count 7.2 K/mcL (4.3-11.1)
[2021-04-17 11:55] LABS: Albumin 3.1 g/dL (3.5-5.7); Albumin/Globulin Ratio 0.9 (1.1-2.2); Bilirubin,Total 0.3 mg/dL (0.3-1.0); Calcium 9.2 mg/dL (8.6-10.3); Globulin 3.5 g/dL (2.4-3.5); Phosphorous 5.8 mg/dL (2.7-4.5); Potassium 5.4 mEq/L (3.5-5.1); Total Protein 6.6 g/dL (6.4-8.9)
[2021-04-17 11:59] LABS: Ferritin 457 ng/mL (10-120); Iron 38 mcg/dL (50-170)
[2021-04-17 12:15] LABS: Folate > 22.3 ng/mL (3.0-16.0); Vitamin B12 923 pg/mL (250-1100)
[2021-04-17] MEDS: methylPREDNISolone 125 MG/2 ML VIAL IVP SCH ×2 (12:42→16:06)
[2021-04-17 13:13] LABS: % Iron Saturation 18 % (15-50); Transferrin 150 mg/dL (203-362)
[2021-04-17] MEDS ORDERED: diazePAM 2 MG TABLET PO PRN (13:55)
[2021-04-17 14:37] LABS: Adenovirus Not Detected (Not Detect); Bordetella Pertussis Not Detected (Not Detect); Chlamydophila pneumoniae Not Detected (Not Detect); Coronavirus 229E Not Detected (Not Detect); Coronavirus HKU1 Not Detected (Not Detect); Coronavirus NL63 Not Detected (Not Detect); Coronavirus OC43 Not Detected (Not Detect); Human Metapneumovirus Not Detected (Not Detect); Human Rhinovirus/Enterovirus Not Detected (Not Detect); Influenza A Subtype 2009 H1 Not Detected (Not Detect); Influenza B Not Detected (Not Detect); Mycoplasma pneumoniae Not Detected (Not Detect); Parainfluenza Virus 1 Not Detected (Not Detect); Parainfluenza Virus 2 Not Detected (Not Detect); Parainfluenza Virus 3 Not Detected (Not Detect); Parainfluenza Virus 4 Not Detected (Not Detect); Respiratory Syncytial Virus Not Detected (Not Detect); SARS-CoV-2 Not Detected (Not Detect)
[2021-04-17] MEDS: Gabapentin 300 MG CAPSULE PO SCH ×2 (15:04→20:38)
[2021-04-17 17:24] LABS: Bacteria,Urine Few per hpf (None-Few); Bilirubin,Urine Negative (Negative); Blood,Urine Trace (Negative); Clarity,Urine Turbid (Clear); Color,Urine Yellow (Yellow); Glucose,Urine (UA) 30 mg/dL (Normal); Hyaline Casts,Urine Few per lpf (None Seen); Ketones,Urine Negative (Negative); Leukocyte Esterase,Urine Moderate (Negative); Mucus,Urine Few per lpf (None-Few); Nitrite,Urine Negative (Negative); PH,Urine 5.5 pH Units (5.0-8.0); Protein,Urine 30 mg/dL (Neg-Trace); RBC,Urine 0-3 per hpf (0-3); Renal Epithelial Cells,Urine Few per hpf (None-Few); Specific Gravity,Urine 1.013 (1.010-1.025); Squamous Epithelial Cell,Urine Moderate per hpf (None-Few); Transitional Epi Cells,Urine Moderate per hpf (None-Few); Urobilinogen,Urine Normal (Normal); WBC,Urine 30-50 per hpf (0-3)
[2021-04-17] MEDS: Azithromycin 250 MG TABLET PO SCH (20:38)
[2021-04-18] MEDS: Ipratropium/Albuterol Neb 3 ML IH SCH ×7 (00:01→23:39)
[2021-04-18] MEDS: methylPREDNISolone 125 MG/2 ML VIAL IVP SCH ×4 (00:44→23:57)
[2021-04-18 07:45] LABS: Calcium 8.9 mg/dL (8.6-10.3); Potassium 6.1 mEq/L (3.5-5.1)
[2021-04-18] MEDS: Budesonide/Formoterol 80/4.5 1 PUFF INH IH SCH ×2 (07:48→19:42)
[2021-04-18] MEDS: *HR* Heparin 5,000 UNIT/ML VIAL SQ SCH ×3 (07:58→20:35)
[2021-04-18] MEDS: Cholecalciferol (D-3) 1,000 UNIT (25MCG) TABLET PO SCH (07:59)
[2021-04-18] MEDS: Furosemide 40 MG/4 ML VIAL IVP SCH ×2 (07:59→16:38)
[2021-04-18] MEDS: Gabapentin 300 MG CAPSULE PO SCH ×3 (07:59→20:35)
[2021-04-18] MEDS: Aspirin Enteric Coated 81 MG Tablet PO SCH (07:59)
[2021-04-18] MEDS ORDERED: Tiotropium 10 INH DOSE IH SCH (10:00)
[2021-04-18 11:03] LABS: Basophils % 0.1 %; Eosinophils % 0.1 %; Hematocrit 24.8 % (35.3-44.9); Immature Granulocytes % 0.7 % (0-4); Lymphocytes # 0.5 K/mcL (0.6-4.6); Lymphocytes % 5.4 %; Mean Corpuscular HGB Conc 32.3 g/dL (31.6-35.5); Mean Corpuscular Volume 99.2 fL (83.0-100.0); Mean Platelet Volume 8.7 fL (9.4-12.4); Monocytes # 0.3 K/mcL (0.0-1.3); Monocytes % 3.1 %; Neutrophils # 8.7 K/mcL (1.6-8.9); Platelet Count 175 K/mcL (140-400); Red Cell Distribution Width 13.5 % (11.5-14.5); Segmented Neutrophils % 90.6 %; White Blood Count 9.6 K/mcL (4.3-11.1)
[2021-04-18] MEDS ORDERED: SODIUM ZIRCONIUM CYCLOSILICATE 5 GM POWD.PACK PO ONE (12:30)
[2021-04-18] MEDS ORDERED: rifAMPin 150 MG CAPSULE PO SCH (20:00)
[2021-04-18] MEDS: Azithromycin 250 MG TABLET PO SCH (20:36)
[2021-04-19] MEDS: Ipratropium/Albuterol Neb 3 ML IH SCH ×6 (03:38→23:16)
[2021-04-19] MEDS: *HR* Heparin 5,000 UNIT/ML VIAL SQ SCH ×3 (05:37→20:22)
[2021-04-19 06:06] LABS: Basophils % 0.3 %; Immature Granulocytes % 1.1 % (0-4); Magnesium 2.1 mg/dL (1.6-2.6); Mean Corpuscular Volume 96.9 fL (83.0-100.0); Phosphorous 3.4 mg/dL (2.7-4.5)
[2021-04-19 06:08] LABS: Eosinophils % 0.3 %; Hemoglobin 7.9 g/dL (11.5-15.4); Immature Platelets 1.7 % (1.1-6.1); Lymphocytes # 0.6 K/mcL (0.6-4.6); Lymphocytes % 7.1 %; Mean Corpuscular HGB Conc 31.6 g/dL (31.6-35.5); Mean Corpuscular Hemoglobin 30.6 pg (28.0-33.3); Mean Platelet Volume 9.7 fL (9.4-12.4); Monocytes # 0.4 K/mcL (0.0-1.3); Monocytes % 4.1 %; Neutrophils # 7.8 K/mcL (1.6-8.9); Platelet Count 175 K/mcL (140-400); Red Blood Count 2.58 M/mcL (3.82-4.97); Red Cell Distribution Width 13.5 % (11.5-14.5); Segmented Neutrophils % 87.1 %
[2021-04-19 06:14] LABS: Calcium 8.8 mg/dL (8.6-10.3); Potassium 5.1 mEq/L (3.5-5.1)
[2021-04-19 06:43] LABS: Platelet Estimate Normal (Normal)
[2021-04-19] MEDS: Budesonide/Formoterol 80/4.5 1 PUFF INH IH SCH ×2 (07:40→19:41)
[2021-04-19] MEDS: Aspirin Enteric Coated 81 MG Tablet PO SCH (08:22)
[2021-04-19] MEDS: Cholecalciferol (D-3) 1,000 UNIT (25MCG) TABLET PO SCH (08:22)
[2021-04-19] MEDS: Furosemide 40 MG/4 ML VIAL IVP SCH ×2 (08:22→15:48)
[2021-04-19] MEDS: methylPREDNISolone 125 MG/2 ML VIAL IVP SCH ×3 (08:22→23:26)
[2021-04-19] MEDS: Gabapentin 300 MG CAPSULE PO SCH ×3 (08:23→20:22)
[2021-04-19] MEDS: amLODIPine 5 MG TABLET PO SCH (11:28)
[2021-04-19] MEDS: carvediloL 25 MG TABLET PO SCH (15:48)
[2021-04-19] MEDS: rifAMPin 150 MG CAPSULE PO SCH (20:22)
[2021-04-19] MEDS: Azithromycin 250 MG TABLET PO SCH (20:22)
[2021-04-20] MEDS: Ipratropium/Albuterol Neb 3 ML IH SCH ×6 (03:25→23:30)
[2021-04-20 05:31] LABS: Basophils % 0.1 %; Eosinophils % 0.2 %; Hematocrit 25.2 % (35.3-44.9); Hemoglobin 7.7 g/dL (11.5-15.4); Immature Granulocytes % 0.5 % (0-4); Lymphocytes # 0.6 K/mcL (0.6-4.6); Lymphocytes % 6.8 %; Mean Corpuscular HGB Conc 30.6 g/dL (31.6-35.5); Mean Corpuscular Volume 101.6 fL (83.0-100.0); Mean Platelet Volume 9.1 fL (9.4-12.4); Monocytes # 0.4 K/mcL (0.0-1.3); Monocytes % 4.9 %; Neutrophils # 7.6 K/mcL (1.6-8.9); Platelet Count 160 K/mcL (140-400); Red Blood Count 2.48 M/mcL (3.82-4.97); Red Cell Distribution Width 13.8 % (11.5-14.5); Segmented Neutrophils % 87.5 %; White Blood Count 8.6 K/mcL (4.3-11.1)
[2021-04-20 05:37] LABS: Calcium 8.9 mg/dL (8.6-10.3); Potassium 5.4 mEq/L (3.5-5.1)
[2021-04-20] MEDS: *HR* Heparin 5,000 UNIT/ML VIAL SQ SCH ×3 (05:37→21:18)
[2021-04-20] MEDS: Budesonide/Formoterol 80/4.5 1 PUFF INH IH SCH ×2 (07:34→19:32)
[2021-04-20] MEDS: Gabapentin 300 MG CAPSULE PO SCH ×3 (08:37→21:19)
[2021-04-20] MEDS: Aspirin Enteric Coated 81 MG Tablet PO SCH (08:37)
[2021-04-20] MEDS: Cholecalciferol (D-3) 1,000 UNIT (25MCG) TABLET PO SCH (08:37)
[2021-04-20] MEDS: Furosemide 40 MG TABLET PO SCH ×2 (08:38→17:37)
[2021-04-20] MEDS: carvediloL 25 MG TABLET PO SCH ×2 (08:38→17:37)
[2021-04-20] MEDS: SODIUM ZIRCONIUM CYCLOSILICATE 5 GM POWD.PACK PO SCH (08:38)
[2021-04-20] MEDS: MethylPREDNISolone 40 MG/ML VIAL IVP SCH ×2 (08:38→21:18)
[2021-04-20] MEDS: amLODIPine 5 MG TABLET PO SCH (08:38)
[2021-04-20] MEDS ORDERED: amLODIPine 5 MG TABLET PO SCH (09:00)
[2021-04-20] MEDS ORDERED: rifAMPin 150 MG CAPSULE PO SCH (09:00)
[2021-04-20] MEDS ORDERED: Iron Sucrose Complex 400 MG in 0.9 % Sodium Chloride 250 ML IVPB ONE (11:34)
[2021-04-20] MEDS: rifAMPin 150 MG CAPSULE PO SCH (21:19)
[2021-04-20] MEDS: Azithromycin 250 MG TABLET PO SCH (21:19)
[2021-04-21 03:01] LABS: Hematocrit 24.8 % (35.3-44.9); Hemoglobin 7.5 g/dL (11.5-15.4); Mean Corpuscular HGB Conc 30.2 g/dL (31.6-35.5); Mean Corpuscular Volume 102.5 fL (83.0-100.0); Mean Platelet Volume 8.9 fL (9.4-12.4); Platelet Count 160 K/mcL (140-400); Red Blood Count 2.42 M/mcL (3.82-4.97); Red Cell Distribution Width 13.7 % (11.5-14.5)
[2021-04-21] MEDS: Ipratropium/Albuterol Neb 3 ML IH SCH ×2 (03:26→07:35)
[2021-04-21 03:37] LABS: Calcium 8.9 mg/dL (8.6-10.3)
[2021-04-21] MEDS: *HR* Heparin 5,000 UNIT/ML VIAL SQ SCH (04:43)
[2021-04-21 06:52] VITALS: BP 139/56; PULSE 70; TEMP 99.4
[2021-04-21] MEDS: Budesonide/Formoterol 80/4.5 1 PUFF INH IH SCH (07:35)
[2021-04-21] MEDS: carvediloL 25 MG TABLET PO SCH (08:35)
[2021-04-21] MEDS: Gabapentin 300 MG CAPSULE PO SCH (09:12)
[2021-04-21] MEDS: Cholecalciferol (D-3) 1,000 UNIT (25MCG) TABLET PO SCH (09:12)
[2021-04-21] MEDS: SODIUM ZIRCONIUM CYCLOSILICATE 5 GM POWD.PACK PO SCH (09:12)
[2021-04-21] MEDS: MethylPREDNISolone 40 MG/ML VIAL IVP SCH (09:12)
[2021-04-21] MEDS: Furosemide 40 MG TABLET PO SCH (09:12)
[2021-04-21] MEDS: amLODIPine 5 MG TABLET PO SCH (09:12)
[2021-04-21] MEDS: Aspirin Enteric Coated 81 MG Tablet PO SCH (09:12)
[2021-04-21 10:49] VITALS: O2SAT 98
== END 2021-04-21 12:14 | disposition home health service (06) | DRG 177 ==
LOC: EMEROOARM 18:16 → 2ANU 18:16 → SUATTDRO 20:31 → 2ANU 21:05
PROVIDERS: ADMIT Family Medicine; ATTEND Family Medicine

== ENCOUNTER 2021-04-30 07:15 | Inpatient (IN) ==
[2021-04-30] MEDS ORDERED: methylPREDNISolone 125 MG/2 ML VIAL IVP ONE (07:18)
[2021-04-30] MEDS ORDERED: cefTRIAXone 1,000 MG in Water for inj. (sterile) 10 ML IVP ONE (07:18)
[2021-04-30] MEDS ORDERED: Azithromycin 500 MG in 0.9 % Sodium Chloride 250 ML IVPB ONE (07:18)
[2021-04-30] MEDS ORDERED: Ipratropium/Albuterol Neb 3 ML IH ONE (07:18)
[2021-04-30 08:03] LABS: VBG HCO3 38 mEq/L (21-27); VBG PCO2 67 mmHg (41-51); VBG PH 7.36 pH Units (7.32-7.42); VBG PO2 98 mmHg (25-50)
[2021-04-30 08:57] LABS: Basophils % 0.3 %; Hemoglobin 7.8 g/dL (11.5-15.4); Immature Granulocytes % 0.2 % (0-4); Red Cell Distribution Width 14.7 % (11.5-14.5)
[2021-04-30 08:59] LABS: Eosinophils # 0.3 K/mcL (0.0-0.6); Eosinophils % 3.3 %; Hematocrit 24.4 % (35.3-44.9); Immature Platelets 2.5 % (1.1-6.1); Lymphocytes # 0.6 K/mcL (0.6-4.6); Lymphocytes % 6.8 %; Mean Corpuscular Hemoglobin 31.7 pg (28.0-33.3); Mean Corpuscular Volume 99.2 fL (83.0-100.0); Mean Platelet Volume 9.8 fL (9.4-12.4); Monocytes # 0.6 K/mcL (0.0-1.3); Monocytes % 6.5 %; Neutrophils # 7.3 K/mcL (1.6-8.9); Platelet Count 163 K/mcL (140-400); Red Blood Count 2.46 M/mcL (3.82-4.97); Segmented Neutrophils % 82.9 %; White Blood Count 8.8 K/mcL (4.3-11.1)
[2021-04-30 10:34] LABS: Potassium 4.6 mEq/L (3.5-5.1)
[2021-04-30] MEDS ORDERED: Acetaminophen 325 MG TABLET PO PRN (11:27)
[2021-04-30] MEDS ORDERED: Naloxone 0.4 MG/ML INJ IVP PRN (11:27)
[2021-04-30] MEDS ORDERED: Ondansetron 4 MG/2 ML VIAL IVP PRN (11:27)
[2021-04-30] MEDS ORDERED: Furosemide 40 MG/4 ML VIAL IVP ONE (11:37)
[2021-04-30] MEDS ORDERED: Ipratropium/Albuterol Neb 3 ML IH PRN (13:13)
[2021-04-30] MEDS: Ipratropium/Albuterol Neb 3 ML IH SCH ×2 (15:42→21:53)
[2021-04-30 15:43] LABS: Bacteria,Urine Few per hpf (None-Few); Bilirubin,Urine Negative (Negative); Blood,Urine Negative (Negative); Clarity,Urine Turbid (Clear); Color,Urine Yellow (Yellow); Glucose,Urine (UA) 70 mg/dL (Normal); Hyaline Casts,Urine Few per lpf (None Seen); Ketones,Urine Negative (Negative); Leukocyte Esterase,Urine Small (Negative); Mucus,Urine Few per lpf (None-Few); Nitrite,Urine Negative (Negative); PH,Urine 5.5 pH Units (5.0-8.0); Protein,Urine 70 mg/dL (Neg-Trace); RBC,Urine 0-3 per hpf (0-3); Specific Gravity,Urine 1.014 (1.010-1.025); Squamous Epithelial Cell,Urine Moderate per hpf (None-Few); Urobilinogen,Urine Normal (Normal)
[2021-04-30] MEDS: MethylPREDNISolone 40 MG/ML VIAL IVP SCH (17:06)
[2021-05-01] MEDS: Ipratropium/Albuterol Neb 3 ML IH SCH ×4 (03:55→21:07)
[2021-05-01 04:06] LABS: Basophils % 0.3 %; Eosinophils # 0.1 K/mcL (0.0-0.6); Hematocrit 23.2 % (35.3-44.9); Hemoglobin 7.6 g/dL (11.5-15.4); Immature Granulocytes % 0.4 % (0-4); Lymphocytes # 0.7 K/mcL (0.6-4.6); Lymphocytes % 10.3 %; Mean Corpuscular HGB Conc 32.8 g/dL (31.6-35.5); Mean Corpuscular Hemoglobin 32.6 pg (28.0-33.3); Mean Corpuscular Volume 99.6 fL (83.0-100.0); Monocytes # 0.7 K/mcL (0.0-1.3); Monocytes % 9.4 %; Neutrophils # 5.3 K/mcL (1.6-8.9); Platelet Count 142 K/mcL (140-400); Red Blood Count 2.33 M/mcL (3.82-4.97); Red Cell Distribution Width 14.7 % (11.5-14.5); Segmented Neutrophils % 77.6 %; White Blood Count 6.9 K/mcL (4.3-11.1)
[2021-05-01 04:25] LABS: Calcium 9.6 mg/dL (8.6-10.3); Magnesium 1.9 mg/dL (1.6-2.6); Potassium 4.3 mEq/L (3.5-5.1)
[2021-05-01] MEDS: MethylPREDNISolone 40 MG/ML VIAL IVP SCH ×2 (05:05→16:15)
[2021-05-01] MEDS: cefTRIAXone 1,000 MG in Water for inj. (sterile) 10 ML IVP SCH (08:19)
[2021-05-01] MEDS: Azithromycin 500 MG in 0.9 % Sodium Chloride 250 ML IVPB SCH (08:20)
[2021-05-01] MEDS ORDERED: Ipratropium/Albuterol Neb 3 ML IH PRN (08:48)
[2021-05-01] MEDS: Budesonide/Formoterol 80/4.5 1 PUFF INH IH SCH ×2 (09:42→21:07)
[2021-05-01] MEDS: Gabapentin 300 MG CAPSULE PO SCH ×3 (12:12→20:53)
[2021-05-01] MEDS: amLODIPine 5 MG TABLET PO SCH (12:12)
[2021-05-01] MEDS: Aspirin Enteric Coated 81 MG Tablet PO SCH (12:12)
[2021-05-01] MEDS: Furosemide 40 MG TABLET PO SCH ×2 (12:13→16:15)
[2021-05-01] MEDS: diazePAM 2 MG TABLET PO PRN (14:19)
[2021-05-01] MEDS: carvediloL 25 MG TABLET PO SCH (16:15)
[2021-05-01] MEDS: Sennosides/Docusate Sodium TABLET PO SCH (20:53)
[2021-05-02] MEDS: Ipratropium/Albuterol Neb 3 ML IH SCH ×4 (04:16→21:53)
[2021-05-02] MEDS: MethylPREDNISolone 40 MG/ML VIAL IVP SCH ×2 (06:16→17:23)
[2021-05-02 06:19] LABS: Hematocrit 23.3 % (35.3-44.9); Hemoglobin 7.1 g/dL (11.5-15.4); Mean Corpuscular HGB Conc 30.5 g/dL (31.6-35.5); Mean Corpuscular Volume 101.7 fL (83.0-100.0); Mean Platelet Volume 10.6 fL (9.4-12.4); Platelet Count 125 K/mcL (140-400); Red Blood Count 2.29 M/mcL (3.82-4.97); Red Cell Distribution Width 14.8 % (11.5-14.5)
[2021-05-02 06:37] LABS: Calcium 9.5 mg/dL (8.6-10.3); Potassium 4.4 mEq/L (3.5-5.1)
[2021-05-02] MEDS: carvediloL 25 MG TABLET PO SCH ×2 (08:39→17:23)
[2021-05-02] MEDS: Sennosides/Docusate Sodium TABLET PO SCH ×2 (08:40→20:10)
[2021-05-02] MEDS: cefTRIAXone 1,000 MG in Water for inj. (sterile) 10 ML IVP SCH (08:40)
[2021-05-02] MEDS: amLODIPine 5 MG TABLET PO SCH (08:40)
[2021-05-02] MEDS: Gabapentin 300 MG CAPSULE PO SCH ×3 (08:40→20:10)
[2021-05-02] MEDS: Aspirin Enteric Coated 81 MG Tablet PO SCH (08:40)
[2021-05-02] MEDS: Furosemide 40 MG TABLET PO SCH ×2 (08:40→17:23)
[2021-05-02] MEDS: Azithromycin 500 MG in 0.9 % Sodium Chloride 250 ML IVPB SCH (08:41)
[2021-05-02 09:32] LABS: Albumin 2.7 g/dL (3.5-5.7); Bilirubin,Indirect 0.3 mg/dL (0.0-1.0); Bilirubin,Total 0.3 mg/dL (0.3-1.0); Globulin 2.8 g/dL (2.4-3.5); Total Protein 5.5 g/dL (6.4-8.9)
[2021-05-02] MEDS: Budesonide/Formoterol 80/4.5 1 PUFF INH IH SCH ×2 (10:41→21:53)
[2021-05-02 13:00] LABS: Hematocrit 24.5 % (35.3-44.9); Hemoglobin 7.6 g/dL (11.5-15.4)
[2021-05-02] MEDS: diazePAM 2 MG TABLET PO PRN (17:31)
[2021-05-03] MEDS: Ipratropium/Albuterol Neb 3 ML IH SCH ×4 (03:27→21:41)
[2021-05-03 06:16] LABS: Hematocrit 24.2 % (35.3-44.9); Hemoglobin 7.5 g/dL (11.5-15.4); Mean Corpuscular Hemoglobin 31.1 pg (28.0-33.3); Mean Corpuscular Volume 100.4 fL (83.0-100.0); Mean Platelet Volume 9.9 fL (9.4-12.4); Platelet Count 141 K/mcL (140-400); Red Blood Count 2.41 M/mcL (3.82-4.97); Red Cell Distribution Width 14.8 % (11.5-14.5); White Blood Count 5.8 K/mcL (4.3-11.1)
[2021-05-03 06:40] LABS: Calcium 9.1 mg/dL (8.6-10.3); Potassium 4.5 mEq/L (3.5-5.1)
[2021-05-03] MEDS: amLODIPine 5 MG TABLET PO SCH (08:53)
[2021-05-03] MEDS: Aspirin Enteric Coated 81 MG Tablet PO SCH (08:53)
[2021-05-03] MEDS: cefTRIAXone 1,000 MG in Water for inj. (sterile) 10 ML IVP SCH (08:53)
[2021-05-03] MEDS: Furosemide 40 MG TABLET PO SCH ×2 (08:53→16:46)
[2021-05-03] MEDS: Sennosides/Docusate Sodium TABLET PO SCH ×2 (08:53→19:53)
[2021-05-03] MEDS: carvediloL 25 MG TABLET PO SCH ×2 (08:53→16:46)
[2021-05-03] MEDS: predniSONE 20 MG TABLET PO SCH (08:53)
[2021-05-03] MEDS: Gabapentin 300 MG CAPSULE PO SCH ×3 (08:53→19:54)
[2021-05-03] MEDS: Azithromycin 500 MG in 0.9 % Sodium Chloride 250 ML IVPB SCH (08:54)
[2021-05-03] MEDS: Budesonide/Formoterol 80/4.5 1 PUFF INH IH SCH ×2 (09:32→21:41)
[2021-05-03 09:57] LABS: ABG Base Excess 16 mEq/L (-2 to 3); ABG HCO3 43 mEq/L (21-27); ABG Oxygen Saturation 89 % (95-98); ABG PCO2 75 mmHg (35-45); ABG PH 7.37 pH Units (7.32-7.45); ABG PO2 63 mmHg (85-104); ABG TCO2 45 mEq/L (20-26)
[2021-05-03] MEDS: diazePAM 2 MG TABLET PO PRN (16:51)
[2021-05-04] MEDS: Ipratropium/Albuterol Neb 3 ML IH SCH ×2 (03:25→10:22)
[2021-05-04 06:47] LABS: Calcium 9.3 mg/dL (8.6-10.3); Potassium 4.6 mEq/L (3.5-5.1)
[2021-05-04] MEDS: Aspirin Enteric Coated 81 MG Tablet PO SCH (08:28)
[2021-05-04] MEDS: Gabapentin 300 MG CAPSULE PO SCH (08:28)
[2021-05-04] MEDS: predniSONE 20 MG TABLET PO SCH (08:28)
[2021-05-04] MEDS: Sennosides/Docusate Sodium TABLET PO SCH (08:28)
[2021-05-04] MEDS: Furosemide 40 MG TABLET PO SCH (08:28)
[2021-05-04] MEDS: Azithromycin 500 MG in 0.9 % Sodium Chloride 250 ML IVPB SCH (08:29)
[2021-05-04] MEDS: cefTRIAXone 1,000 MG in Water for inj. (sterile) 10 ML IVP SCH (08:29)
[2021-05-04] MEDS: carvediloL 25 MG TABLET PO SCH (08:29)
[2021-05-04] MEDS: amLODIPine 5 MG TABLET PO SCH (08:29)
[2021-05-04 08:55] LABS: Hematocrit 26.5 % (35.3-44.9); Hemoglobin 8.2 g/dL (11.5-15.4); Mean Corpuscular HGB Conc 30.9 g/dL (31.6-35.5); Mean Corpuscular Hemoglobin 30.8 pg (28.0-33.3); Mean Corpuscular Volume 99.6 fL (83.0-100.0); Mean Platelet Volume 10.2 fL (9.4-12.4); Platelet Count 149 K/mcL (140-400); Red Blood Count 2.66 M/mcL (3.82-4.97); Red Cell Distribution Width 14.8 % (11.5-14.5); White Blood Count 8.4 K/mcL (4.3-11.1)
[2021-05-04] MEDS: Budesonide/Formoterol 80/4.5 1 PUFF INH IH SCH (10:22)
[2021-05-04 10:53] VITALS: BP 136/66; PULSE 83; TEMP 99.2; O2SAT 88
== END 2021-05-04 14:12 | disposition home health service (06) | DRG 871 ==
LOC: EMEROOARM 07:15 → 2NNU 07:15 → SUATTDRO 11:24 → 2NNU 13:59 → 2ANU 05-02 19:48
PROVIDERS: ADMIT Internal Medicine; ATTEND Internal Medicine

== ENCOUNTER 2021-05-14 09:31 | Inpatient (IN) ==
[2021-05-14 10:29] LABS: Basophils % 0.3 %; Eosinophils # 0.4 K/mcL (0.0-0.6); Eosinophils % 5.4 %; Hematocrit 27.1 % (35.3-44.9); Hemoglobin 8.3 g/dL (11.5-15.4); Immature Granulocytes % 0.4 % (0-4); Lymphocytes # 0.5 K/mcL (0.6-4.6); Lymphocytes % 7.3 %; Mean Corpuscular HGB Conc 30.6 g/dL (31.6-35.5); Mean Corpuscular Hemoglobin 31.2 pg (28.0-33.3); Mean Corpuscular Volume 101.9 fL (83.0-100.0); Mean Platelet Volume 8.7 fL (9.4-12.4); Monocytes # 0.5 K/mcL (0.0-1.3); Neutrophils # 5.9 K/mcL (1.6-8.9); Platelet Count 135 K/mcL (140-400); Red Blood Count 2.66 M/mcL (3.82-4.97); Red Cell Distribution Width 14.5 % (11.5-14.5); Segmented Neutrophils % 79.6 %; White Blood Count 7.4 K/mcL (4.3-11.1)
[2021-05-14 10:57] LABS: Albumin 3.5 g/dL (3.5-5.7); Albumin/Globulin Ratio 1.1 (1.1-2.2); Bilirubin,Direct 0.1 mg/dL (0.0-0.2); Bilirubin,Indirect 0.3 mg/dL (0.0-1.0); Bilirubin,Total 0.4 mg/dL (0.3-1.0); Globulin 3.1 g/dL (2.4-3.5); Potassium 4.3 mEq/L (3.5-5.1); Total Protein 6.6 g/dL (6.4-8.9); Troponin I 0.03 ng/mL (< 0.04)
[2021-05-14 11:05] LABS: VBG HCO3 42 mEq/L (21-27); VBG PCO2 99 mmHg (41-51); VBG PH 7.24 pH Units (7.32-7.42); VBG PO2 72 mmHg (25-50)
[2021-05-14 11:30] LABS: Calcium 9.5 mg/dL (8.6-10.3)
[2021-05-14] MEDS ORDERED: Ipratropium/Albuterol Neb 3 ML IH ONE (11:59)
[2021-05-14] MEDS ORDERED: predniSONE 20 MG TABLET PO ONE (12:00)
[2021-05-14] MEDS ORDERED: Furosemide 40 MG/4 ML VIAL IVP ONE (12:01)
[2021-05-14] MEDS ORDERED: Naloxone 0.4 MG/ML INJ IVP PRN (13:38)
[2021-05-14] MEDS ORDERED: Ondansetron 4 MG/2 ML VIAL IVP PRN (13:38)
[2021-05-14] MEDS ORDERED: Acetaminophen 325 MG TABLET PO PRN (13:38)
[2021-05-14] MEDS ORDERED: *HR* HYDROcodone/Acet 5/325 mg TABLET PO PRN (13:38)
[2021-05-14] MEDS ORDERED: Melatonin 3 MG TABLET PO PRN (13:38)
[2021-05-14 16:24] LABS: Adenovirus Not Detected (Not Detect); Bordetella Pertussis Not Detected (Not Detect); Chlamydophila pneumoniae Not Detected (Not Detect); Coronavirus 229E Not Detected (Not Detect); Coronavirus HKU1 Not Detected (Not Detect); Coronavirus NL63 Not Detected (Not Detect); Coronavirus OC43 Not Detected (Not Detect); Human Metapneumovirus Not Detected (Not Detect); Human Rhinovirus/Enterovirus Not Detected (Not Detect); Influenza A Subtype 2009 H1 Not Detected (Not Detect); Influenza B Not Detected (Not Detect); Mycoplasma pneumoniae Not Detected (Not Detect); Parainfluenza Virus 1 Not Detected (Not Detect); Parainfluenza Virus 2 Not Detected (Not Detect); Parainfluenza Virus 3 Not Detected (Not Detect); Parainfluenza Virus 4 Not Detected (Not Detect); Respiratory Syncytial Virus Not Detected (Not Detect); SARS-CoV-2 Not Detected (Not Detect)
[2021-05-14] MEDS: Ipratropium/Albuterol Neb 3 ML IH SCH ×3 (16:32→23:21)
[2021-05-14 16:45] LABS: ABG Base Excess 14 mEq/L (-2 to 3); ABG HCO3 43 mEq/L (21-27); ABG Oxygen Saturation 95 % (95-98); ABG PCO2 88 mmHg (35-45); ABG PO2 87 mmHg (85-104); ABG TCO2 45 mEq/L (20-26)
[2021-05-14 16:57] LABS: Magnesium 1.7 mg/dL (1.6-2.6); Phosphorous 3.7 mg/dL (2.7-4.5); Thyroid Stimulating Hormone 1.316 mcIU/mL (0.340-5.600)
[2021-05-14] MEDS: Budesonide/Formoterol 160/4.5 1 PUFF INH IH SCH (20:02)
[2021-05-14] MEDS: Gabapentin 300 MG CAPSULE PO SCH (20:58)
[2021-05-14] MEDS: Furosemide 40 MG TABLET PO SCH (20:58)
[2021-05-14] MEDS: rifAMPin 150 MG CAPSULE PO SCH (20:59)
[2021-05-14] MEDS: Lactobacillus 1 EACH CAP.SPRINK PO SCH (20:59)
[2021-05-14] MEDS: Furosemide 40 MG/4 ML VIAL IVP SCH (21:24)
[2021-05-14] MEDS: diazePAM 2 MG TABLET PO PRN (21:28)
[2021-05-15] MEDS ORDERED: MethylPREDNISolone 40 MG/ML VIAL IVP SCH
[2021-05-15] MEDS: Nystatin POWDER 30 GM BOTTLE TP SCH ×3 (01:42→20:41)
[2021-05-15] MEDS: Ipratropium/Albuterol Neb 3 ML IH SCH ×5 (03:12→20:38)
[2021-05-15 04:36] LABS: ABG Base Excess 18 mEq/L (-2 to 3); ABG HCO3 47 mEq/L (21-27); ABG Oxygen Saturation 95 % (95-98); ABG PCO2 97 mmHg (35-45); ABG PO2 88 mmHg (85-104); ABG TCO2 > 50 mEq/L (20-26); Blood Gas Modality AVAPS; Blood Gas VT 500 cc
[2021-05-15] MEDS: *HR* Heparin 5,000 UNIT/ML VIAL SQ SCH ×2 (04:54→17:59)
[2021-05-15] MEDS: MethylPREDNISolone 40 MG/ML VIAL IVP SCH ×2 (04:54→17:59)
[2021-05-15 07:06] LABS: White Blood Count 5.4 K/mcL (4.3-11.1)
[2021-05-15 07:07] LABS: Basophils % 0.2 %; Eosinophils # 0.1 K/mcL (0.0-0.6); Eosinophils % 2.2 %; Immature Granulocytes % 0.2 % (0-4); Lymphocytes # 0.5 K/mcL (0.6-4.6); Lymphocytes % 9.6 %; Mean Corpuscular Hemoglobin 32.3 pg (28.0-33.3); Mean Corpuscular Volume 100.8 fL (83.0-100.0); Mean Platelet Volume 9.3 fL (9.4-12.4); Monocytes # 0.5 K/mcL (0.0-1.3); Monocytes % 8.8 %; Neutrophils # 4.3 K/mcL (1.6-8.9); Platelet Count 108 K/mcL (140-400); Red Blood Count 2.48 M/mcL (3.82-4.97); Red Cell Distribution Width 14.3 % (11.5-14.5)
[2021-05-15] MEDS: Budesonide/Formoterol 160/4.5 1 PUFF INH IH SCH ×2 (07:49→20:38)
[2021-05-15 07:50] LABS: % Iron Saturation 16 % (15-50); Iron 34 mcg/dL (50-170); Transferrin 152 mg/dL (203-362)
[2021-05-15 07:58] LABS: Albumin 3.1 g/dL (3.5-5.7); Albumin/Globulin Ratio 1.1 (1.1-2.2); Bilirubin,Total 0.3 mg/dL (0.3-1.0); Calcium 9.2 mg/dL (8.6-10.3); Globulin 2.7 g/dL (2.4-3.5); Magnesium 1.9 mg/dL (1.6-2.6); Phosphorous 3.8 mg/dL (2.7-4.5); Potassium 4.5 mEq/L (3.5-5.1); Total Protein 5.8 g/dL (6.4-8.9)
[2021-05-15 07:59] LABS: Ferritin 267 ng/mL (10-120)
[2021-05-15 08:08] LABS: Folate > 22.3 ng/mL (3.0-16.0); Vitamin B12 617 pg/mL (250-1100)
[2021-05-15] MEDS: Multivit/Ca/Min/Fe/FA 1 TAB TABLET PO SCH (09:10)
[2021-05-15] MEDS: carvediloL 25 MG TABLET PO SCH ×2 (09:10→17:59)
[2021-05-15] MEDS: Gabapentin 300 MG CAPSULE PO SCH ×3 (09:10→20:41)
[2021-05-15] MEDS: Lactobacillus 1 EACH CAP.SPRINK PO SCH ×2 (09:10→20:40)
[2021-05-15] MEDS: Cholecalciferol (D-3) 1,000 UNIT (25MCG) TABLET PO SCH (09:10)
[2021-05-15] MEDS: Aspirin Enteric Coated 81 MG Tablet PO SCH (09:10)
[2021-05-15] MEDS: Furosemide 40 MG/4 ML VIAL IVP SCH (09:11)
[2021-05-15] MEDS: Azithromycin 250 MG TABLET PO SCH (09:11)
[2021-05-15] MEDS: Furosemide 40 MG TABLET PO SCH (10:28)
[2021-05-15] MEDS ORDERED: Iron Sucrose Complex 400 MG in 0.9 % Sodium Chloride 250 ML IVPB ONE (19:30)
[2021-05-15] MEDS: rifAMPin 150 MG CAPSULE PO SCH (20:40)
[2021-05-16] MEDS: Ipratropium/Albuterol Neb 3 ML IH SCH ×7 (00:33→23:42)
[2021-05-16 03:50] LABS: Basophils % 0.4 %; Eosinophils # 0.1 K/mcL (0.0-0.6); Eosinophils % 2.2 %; Hematocrit 24.5 % (35.3-44.9); Hemoglobin 7.5 g/dL (11.5-15.4); Immature Granulocytes % 0.2 % (0-4); Lymphocytes # 0.5 K/mcL (0.6-4.6); Lymphocytes % 9.4 %; Mean Corpuscular HGB Conc 30.6 g/dL (31.6-35.5); Mean Corpuscular Hemoglobin 31.1 pg (28.0-33.3); Mean Corpuscular Volume 101.7 fL (83.0-100.0); Mean Platelet Volume 9.4 fL (9.4-12.4); Monocytes # 0.4 K/mcL (0.0-1.3); Monocytes % 7.5 %; Neutrophils # 4.4 K/mcL (1.6-8.9); Platelet Count 118 K/mcL (140-400); Red Blood Count 2.41 M/mcL (3.82-4.97); Red Cell Distribution Width 14.2 % (11.5-14.5); Segmented Neutrophils % 80.3 %; White Blood Count 5.5 K/mcL (4.3-11.1)
[2021-05-16 04:14] LABS: Albumin 3.1 g/dL (3.5-5.7); Albumin/Globulin Ratio 1.1 (1.1-2.2); Bilirubin,Total 0.3 mg/dL (0.3-1.0); Calcium 9.1 mg/dL (8.6-10.3); Globulin 2.7 g/dL (2.4-3.5); Magnesium 1.9 mg/dL (1.6-2.6); Phosphorous 3.2 mg/dL (2.7-4.5); Potassium 4.4 mEq/L (3.5-5.1); Total Protein 5.8 g/dL (6.4-8.9)
[2021-05-16] MEDS: *HR* Heparin 5,000 UNIT/ML VIAL SQ SCH ×2 (07:12→15:54)
[2021-05-16] MEDS: MethylPREDNISolone 40 MG/ML VIAL IVP SCH ×2 (07:38→16:05)
[2021-05-16] MEDS: Azithromycin 250 MG TABLET PO SCH (07:38)
[2021-05-16] MEDS: Furosemide 40 MG TABLET PO SCH ×2 (07:39→16:13)
[2021-05-16] MEDS: Cholecalciferol (D-3) 1,000 UNIT (25MCG) TABLET PO SCH (07:39)
[2021-05-16] MEDS: Gabapentin 300 MG CAPSULE PO SCH ×2 (07:39→14:19)
[2021-05-16] MEDS: carvediloL 25 MG TABLET PO SCH ×2 (07:39→16:13)
[2021-05-16] MEDS: Lactobacillus 1 EACH CAP.SPRINK PO SCH ×2 (07:39→20:22)
[2021-05-16] MEDS: Multivit/Ca/Min/Fe/FA 1 TAB TABLET PO SCH (07:39)
[2021-05-16] MEDS: Nystatin POWDER 30 GM BOTTLE TP SCH (07:39)
[2021-05-16] MEDS: Aspirin Enteric Coated 81 MG Tablet PO SCH (07:39)
[2021-05-16] MEDS: Budesonide/Formoterol 160/4.5 1 PUFF INH IH SCH ×2 (07:48→20:26)
[2021-05-16] MEDS: amLODIPine 5 MG TABLET PO SCH (14:43)
[2021-05-16] MEDS: Gabapentin 100 MG CAPSULE PO SCH (20:18)
[2021-05-16] MEDS: diazePAM 2 MG TABLET PO PRN (20:18)
[2021-05-16] MEDS: rifAMPin 150 MG CAPSULE PO SCH (20:21)
[2021-05-17] MEDS: Ipratropium/Albuterol Neb 3 ML IH SCH ×4 (04:23→15:07)
[2021-05-17] MEDS: Budesonide/Formoterol 160/4.5 1 PUFF INH IH SCH (07:16)
[2021-05-17] MEDS: *HR* Heparin 5,000 UNIT/ML VIAL SQ SCH ×2 (07:32→16:58)
[2021-05-17] MEDS: Nystatin POWDER 30 GM BOTTLE TP SCH ×2 (07:32→08:03)
[2021-05-17] MEDS: Cholecalciferol (D-3) 1,000 UNIT (25MCG) TABLET PO SCH (08:01)
[2021-05-17] MEDS: Furosemide 40 MG TABLET PO SCH ×2 (08:02→17:02)
[2021-05-17] MEDS: Gabapentin 100 MG CAPSULE PO SCH ×2 (08:02→14:05)
[2021-05-17] MEDS: Multivit/Ca/Min/Fe/FA 1 TAB TABLET PO SCH (08:02)
[2021-05-17] MEDS: Aspirin Enteric Coated 81 MG Tablet PO SCH (08:02)
[2021-05-17] MEDS: amLODIPine 5 MG TABLET PO SCH (08:02)
[2021-05-17] MEDS: carvediloL 25 MG TABLET PO SCH ×2 (08:02→17:02)
[2021-05-17] MEDS: Azithromycin 250 MG TABLET PO SCH (08:02)
[2021-05-17] MEDS: Lactobacillus 1 EACH CAP.SPRINK PO SCH (08:02)
[2021-05-17 08:16] LABS: Basophils % 0.4 %; Mean Corpuscular Volume 100.8 fL (83.0-100.0)
[2021-05-17 08:18] LABS: Eosinophils # 0.3 K/mcL (0.0-0.6); Eosinophils % 5.8 %; Hematocrit 24.6 % (35.3-44.9); Hemoglobin 7.8 g/dL (11.5-15.4); Immature Granulocytes % 0.2 % (0-4); Immature Platelets 1.9 % (1.1-6.1); Lymphocytes # 0.6 K/mcL (0.6-4.6); Lymphocytes % 12.5 %; Mean Corpuscular HGB Conc 31.7 g/dL (31.6-35.5); Monocytes # 0.5 K/mcL (0.0-1.3); Monocytes % 9.9 %; Red Blood Count 2.44 M/mcL (3.82-4.97); Red Cell Distribution Width 14.5 % (11.5-14.5); Segmented Neutrophils % 71.2 %
[2021-05-17 08:47] LABS: Neutrophils # 3.6 K/mcL (1.6-8.9); Platelet Count 70 K/mcL (140-400)
[2021-05-17 08:50] LABS: Platelet Estimate Decreased (Normal)
[2021-05-17] MEDS ORDERED: predniSONE 20 MG TABLET PO SCH (09:00)
[2021-05-17 09:37] LABS: Albumin 3.2 g/dL (3.5-5.7); Albumin/Globulin Ratio 1.1 (1.1-2.2); Bilirubin,Total 0.3 mg/dL (0.3-1.0); Globulin 2.8 g/dL (2.4-3.5); Magnesium 1.7 mg/dL (1.6-2.6); Phosphorous 2.7 mg/dL (2.7-4.5)
[2021-05-17 10:29] VITALS: TEMP 98.8
[2021-05-17] MEDS: diazePAM 2 MG TABLET PO PRN (14:05)
[2021-05-17 17:02] VITALS: BP 147/69; PULSE 74; O2SAT 92
[2021-05-19] MEDS ORDERED: predniSONE 10 MG TABLET PO SCH (09:00)
[2021-05-22] MEDS ORDERED: predniSONE 20 MG TABLET PO SCH (09:00)
[2021-05-25] MEDS ORDERED: predniSONE 10 MG TABLET PO SCH (09:00)
== END 2021-05-17 19:50 | disposition hospice, home (50) | DRG 291 ==
LOC: SUATTDRO → EMEROOARM 09:31 → SUATTDRO 15:57 → 2NENU 15:57
PROVIDERS: ADMIT Student in an Organized Health Care Education/Training Program; ATTEND Internal Medicine